=== PATIENT | female | born 1940 | race African-American/Black ===

== ENCOUNTER 2024-01-07 22:16 | Emergency (ER) | payer OTHER ==
[~2024-01-07] VITALS: Ht 165.1 cm; Wt 62.0 kg
[2024-01-08] MEDS: HYDROcodone-ACET 5/325MG TAB PO ONE (00:04)
[2024-01-08] MEDS ORDERED: HYDR-4902 PO (00:57)
[2024-01-08 01:23] VITALS: BP 112/58; PULSE 62; RESP 18; TEMP 98; O2SAT 99
== END 2024-01-08 01:31 | disposition home or self-care (01) ==
LOC: ER 22:16
DX: S80.02XA Contusion of left knee, initial encounter (principal); M17.12 Unilateral primary osteoarthritis, left knee; W17.89XA Other fall from one level to another, initial encounter; Y93.89 Activity, other specified; Y92.009 Unspecified place in unspecified non-institutional (private) residence as the place of occurrence of the external cause; Y99.8 Other external cause status
CPT/HCPCS: 73562

== ENCOUNTER 2024-01-12 01:31 | Inpatient (IN) | payer OTHER ==
[2024-01-12] VITALS (9 sets, daily range): BP systolic 117–138; BP diastolic 49–64; PULSE 51–99; RESP 16–20; TEMP 97.3–98.5; O2SAT 94–100
[~2024-01-12] VITALS: Ht 167.6 cm; Wt 62.0 kg
[~2024-01-12 01:31] MED LIST: HYDR-4902 PO
[2024-01-12 01:52] LABS: Basophils # (auto) 0.1 10 ^3/uL (0-0.2); Eosinophils # (auto) 0.2 10 ^3/uL (0-0.8); Hemoglobin 11.9 g/dL (12.2-16.2)
[2024-01-12 01:53] LABS: Basophils % (auto) 0.7 % (0.0-2.0); Eosinophils % (auto) 2.3 % (0.0-7.0); Hematocrit 35.5 % (36.0-46.0); Lymphocytes # (auto) 2.2 10 ^3/uL (0.4-5.4); Lymphocytes % (auto) 22.7 % (10.0-50.0); Mean Corpuscular Hemoglobin 27.8 pg (28.0-32.0); Mean Corpuscular Hgb Conc. 33.5 g/dL (32.0-36.0); Mean Corpuscular Volume 82.9 fL (80.0-100.0); Monocytes # (auto) 0.9 10 ^3/uL (0-1.3); Monocytes % (auto) 9.7 % (0.0-12.0); Neutrophils # (auto) 6.2 10 ^3/uL (1.6-8.6); Neutrophils % (auto) 64.6 % (37.0-80.0); Red Blood Cells 4.28 10^6/uL (4.0-5.20); Red Cell Distribution Width 16.8 % (11.8-14.3); White Blood Cell 9.6 10^3/uL (4.4-10.8)
[2024-01-12 02:10] LABS: Alanine Aminotransferase 13 U/L (7-40); Alkaline Phosphatase 75 U/L (46-116); Anion Gap 5 (5-15); Aspartate Aminotransferase 19 U/L (13-40); Bilirubin, Total 0.4 mg/dL (0.2-1.0); Calcium 9.9 mg/dL (8.7-10.4); Carbon Dioxide 28 mmol/L (20-30); Chloride 108 mmol/L (98-107); Glucose 110 mg/dL (74-106); Potassium 3.6 mmol/L (3.5-5.1); Sodium 141 mmol/L (136-145); Total Protein 7.2 g/dL (5.7-8.2)
[2024-01-12 02:33] LABS: BUN/Creatinine Ratio 7.2 (10.0-20.0); Blood Urea Nitrogen < 5 mg/dL (9-23)
[2024-01-12] MEDS: IOHEXOL 350 MG/ML 100ML IJ ONE (03:31)
[2024-01-12] MEDS: ASPirin 81 mg TAB PO ONE (04:26)
[2024-01-12] MEDS: HYDROcodone-ACET 10/325MG TAB PO ONE (04:36)
[2024-01-12] MEDS ORDERED: MORPHINE SULFATE INJ 2 MG/ml SYRG IV PRN (04:45)
[2024-01-12] MEDS ORDERED: ONDANSETRON HCL 4 MG/2 ML VIAL IV PRN (04:45)
[2024-01-12] MEDS ORDERED: NITROGLYCERIN 0.4 MG SL TAB SL PRN (04:45)
[2024-01-12] MEDS: SODIUM CHLOR 0.9% PF (SALINE LOCK) 10ML VIAL/SYR IV SCH (06:46)
[2024-01-12] MEDS ORDERED: LEVO125T7 PO (09:17)
[2024-01-12] MEDS ORDERED: CARV12.544 PO (09:18)
[2024-01-12] MEDS ORDERED: AMLO1TAB22 PO (09:18)
[2024-01-12] MEDS ORDERED: ALPR0.5T7 PO (09:20)
[2024-01-12] MEDS ORDERED: TIMO0.5S32 OP (09:22)
[2024-01-12] MEDS ORDERED: LATA0.008 EACHEYE (09:23)
[2024-01-12] MEDS ORDERED: APIX5TAB PO (09:23)
[2024-01-12] MEDS: ASPirin 81 mg TAB PO SCH (12:00)
[2024-01-12 13:35] LABS: Magnesium 1.9 mg/dL (1.6-2.6)
[2024-01-12 13:36] LABS: CRP High Sensitivity 0.04 mg/dL (<1.0)
[2024-01-12 13:41] LABS: INR 1.12 (0.9-1.15); Partial Thromboplastin Time 32.2 SEC (24.5-34.5); Prothrombin Time 11.8 sec (9.3-11.8)
[2024-01-12 14:12] LABS: Erythrocyte Sedimentation Rate 13 mm/hr (0-20)
[2024-01-12 15:51] LABS: Folate (Folic Acid) 11.93 ng/mL (>5.38)
[2024-01-12] MEDS: amLODIPine BESYLATE 5 MG TAB PO SCH (16:47)
[2024-01-12] MEDS: HYDROcodone-ACET 5/325MG TAB PO PRN (18:45)
[2024-01-12] MEDS: ACETAMINOPHEN 325 MG TAB PO PRN (21:17)
[2024-01-12] MEDS: ATORVASTATIN 20 MG TAB PO SCH (21:18)
[2024-01-12] MEDS: APIXABAN 5 MG TAB PO SCH (21:18)
[2024-01-13] VITALS (8 sets, daily range): BP systolic 114–152; BP diastolic 49–66; PULSE 54–96; RESP 16–18; TEMP 97.6–98.4; O2SAT 95–100
[2024-01-13] MEDS: LEVOTHYROXINE SODIUM 25 MCG TAB PO SCH (06:13)
[2024-01-13] MEDS: LEVOTHYROXINE SODIUM 100 MCG TAB PO SCH (06:14)
[2024-01-13 06:39] LABS: Urine Bacteria None Seen /hpf (None Seen)
[2024-01-13 06:43] LABS: Alanine Aminotransferase 11 U/L (7-40); Albumin 3.3 g/dL (3.2-4.8); Alkaline Phosphatase 62 U/L (46-116); Anion Gap 5 (5-15); Aspartate Aminotransferase 19 U/L (13-40); BUN/Creatinine Ratio 8.8 (10.0-20.0); Bilirubin, Total 0.4 mg/dL (0.2-1.0); Blood Urea Nitrogen 7 mg/dL (9-23); Calcium 9.1 mg/dL (8.7-10.4); Carbon Dioxide 28 mmol/L (20-30); Chloride 108 mmol/L (98-107); Glucose 86 mg/dL (74-106); Potassium 3.6 mmol/L (3.5-5.1); Sodium 141 mmol/L (136-145)
[2024-01-13 06:45] LABS: Basophils # (auto) 0.1 10 ^3/uL (0-0.2); Basophils % (auto) 0.8 % (0.0-2.0); Eosinophils # (auto) 0.2 10 ^3/uL (0-0.8); Eosinophils % (auto) 2.2 % (0.0-7.0); Hematocrit 32.2 % (36.0-46.0); Hemoglobin 10.7 g/dL (12.2-16.2); Lymphocytes # (auto) 2.8 10 ^3/uL (0.4-5.4); Lymphocytes % (auto) 33.1 % (10.0-50.0); Mean Corpuscular Hemoglobin 27.6 pg (28.0-32.0); Mean Corpuscular Hgb Conc. 33.3 g/dL (32.0-36.0); Mean Corpuscular Volume 83.1 fL (80.0-100.0); Monocytes % (auto) 11.5 % (0.0-12.0); Neutrophils # (auto) 4.4 10 ^3/uL (1.6-8.6); Neutrophils % (auto) 52.4 % (37.0-80.0); Nucleated Red Blood Cells % 0.1 %; Red Blood Cells 3.87 10^6/uL (4.0-5.20); White Blood Cell 8.3 10^3/uL (4.4-10.8)
[2024-01-13 06:47] LABS: Urine Blood Negative /uL (Negative); Urine Clarity Clear (Clear); Urine Color Light-Yellow (Yellow); Urine Protein, UAD Negative (Negative); Urine Specific Gravity 1.024 (1.001-1.035); Urine Urobilinogen Normal (Negative); Urine WBC <1 /hpf (0 - 5)
[2024-01-13] MEDS ORDERED: PATIENTS OWN MEDICATION (Levothyroxine Sodium 125 MCG) PO SCH (07:00)
[2024-01-13 09:06] LABS: RPR Non Reactive (Non Reactive)
[2024-01-13] MEDS: APIXABAN 5 MG TAB PO SCH (10:00)
[2024-01-13] MEDS: amLODIPine BESYLATE 5 MG TAB PO SCH (10:06)
[2024-01-13] MEDS: ALPRAZolam 0.5 MG TAB PO PRN (21:49)
[2024-01-13] MEDS: ATORVASTATIN 20 MG TAB PO SCH (21:49)
[2024-01-13] MEDS ORDERED: ATORVASTATIN 20 MG TAB PO SCH (22:00)
[2024-01-14] VITALS (8 sets, daily range): BP systolic 105–147; BP diastolic 52–80; PULSE 58–87; RESP 16–20; TEMP 97.7–98.7; O2SAT 93–100
[2024-01-14 06:16] LABS: Basophils # (auto) 0.1 10 ^3/uL (0-0.2); Basophils % (auto) 0.8 % (0.0-2.0); Eosinophils # (auto) 0.2 10 ^3/uL (0-0.8)
[2024-01-14 06:20] LABS: Hematocrit 32.1 % (36.0-46.0); Hemoglobin 10.9 g/dL (12.2-16.2); Lymphocytes # (auto) 2.7 10 ^3/uL (0.4-5.4); Lymphocytes % (auto) 30.4 % (10.0-50.0); Mean Corpuscular Hgb Conc. 34.1 g/dL (32.0-36.0); Mean Corpuscular Volume 82.2 fL (80.0-100.0); Monocytes # (auto) 0.9 10 ^3/uL (0-1.3); Monocytes % (auto) 10.3 % (0.0-12.0); Neutrophils # (auto) 4.9 10 ^3/uL (1.6-8.6); Neutrophils % (auto) 56.5 % (37.0-80.0); Red Blood Cells 3.91 10^6/uL (4.0-5.20); White Blood Cell 8.7 10^3/uL (4.4-10.8)
[2024-01-14 06:34] LABS: Anion Gap 4 (5-15); Carbon Dioxide 29 mmol/L (20-30); Chloride 108 mmol/L (98-107); Potassium 3.5 mmol/L (3.5-5.1); Sodium 141 mmol/L (136-145)
[2024-01-14 06:35] LABS: Calcium 9.2 mg/dL (8.7-10.4)
[2024-01-14 06:40] LABS: BUN/Creatinine Ratio 11.5 (10.0-20.0); Blood Urea Nitrogen 9 mg/dL (9-23); Glucose 91 mg/dL (74-106)
[2024-01-14] MEDS: ASPirin 81 mg TAB PO SCH (09:02)
[2024-01-14] MEDS: DOCUSATE SOD 100 MG CAP PO PRN (21:56)
[2024-01-15 01:00] VITALS: BP 139/87; PULSE 88; RESP 18; TEMP 97.9; O2SAT 100
[2024-01-15 05:00] VITALS: BP 141/72; PULSE 65; RESP 18; TEMP 97.7; O2SAT 95
[2024-01-15 07:07] LABS: Basophils # (auto) 0.1 10 ^3/uL (0-0.2); Eosinophils # (auto) 0.3 10 ^3/uL (0-0.8); Hematocrit 33.6 % (36.0-46.0); Hemoglobin 11.3 g/dL (12.2-16.2); Lymphocytes # (auto) 3.4 10 ^3/uL (0.4-5.4)
[2024-01-15 07:09] LABS: Basophils % (auto) 1.1 % (0.0-2.0); Eosinophils % (auto) 2.6 % (0.0-7.0); Lymphocytes % (auto) 35.3 % (10.0-50.0); Mean Corpuscular Hemoglobin 28.3 pg (28.0-32.0); Mean Corpuscular Hgb Conc. 33.7 g/dL (32.0-36.0); Mean Corpuscular Volume 83.8 fL (80.0-100.0); Monocytes # (auto) 0.9 10 ^3/uL (0-1.3); Monocytes % (auto) 9.4 % (0.0-12.0); Neutrophils % (auto) 51.6 % (37.0-80.0); Nucleated Red Blood Cells % 0.2 %; White Blood Cell 9.7 10^3/uL (4.4-10.8)
[2024-01-15 07:34] LABS: Alanine Aminotransferase 14 U/L (7-40); Albumin 3.4 g/dL (3.2-4.8); Alkaline Phosphatase 60 U/L (46-116); Calcium 9.3 mg/dL (8.7-10.4); Carbon Dioxide 22 mmol/L (20-30); Chloride 110 mmol/L (98-107); Glucose 87 mg/dL (74-106); Potassium 3.5 mmol/L (3.5-5.1)
[2024-01-15 07:35] LABS: Anion Gap 8 (5-15); Aspartate Aminotransferase 23 U/L (13-40); BUN/Creatinine Ratio 7.9 (10.0-20.0); Bilirubin, Total 0.4 mg/dL (0.2-1.0); Blood Urea Nitrogen 6 mg/dL (9-23); Sodium 140 mmol/L (136-145); Total Protein 6.2 g/dL (5.7-8.2)
[2024-01-15 08:00] VITALS: PULSE 59
[2024-01-15 09:07] VITALS: BP 138/67; PULSE 62; RESP 17; TEMP 98.9; O2SAT 95
[2024-01-15 12:48] VITALS: BP 140/71; PULSE 62; RESP 18; TEMP 98.4; O2SAT 99
[2024-01-15] MEDS ORDERED: ATOR20TA50 PO (15:03)
[2024-01-15] MEDS ORDERED: ASPI-325 PO (15:03)
[2024-01-15] MEDS ORDERED: AML5T PO (15:03)
[2024-01-15 17:06] VITALS: BP 133/73; PULSE 61; RESP 17; TEMP 98.2; O2SAT 98
== END 2024-01-15 18:44 | disposition home or self-care (01) | DRG 206 ==
LOC: ER 01:31 → TELE 04:43 → TELE-WESTW 06:05
PROVIDERS: ADMIT Internal Medicine; ATTEND Neuromusculoskeletal Medicine & OMM
DX: M94.0 Chondrocostal junction syndrome [Tietze] (principal); D75.839 Thrombocytosis, unspecified; I10 Essential (primary) hypertension; J45.909 Unspecified asthma, uncomplicated; D64.9 Anemia, unspecified; E78.2 Mixed hyperlipidemia; F32.A Depression, unspecified
CPT/HCPCS: 36415; 70450; 70551; 71045; 71275; 80048; 80053; 80061; 81001; 82140; 82270; 82306; 82607; 82728; 82746; 83036; 83540; 83550; 83735; 83880; 84443; 84484; 85025; 85045; 85610; 85652; 85730; 86141; 86592; 87081; 87086; 93005; 93306; 97163; G0378

== ENCOUNTER 2024-10-20 05:44 | Emergency (ER) | payer OTHER ==
[~2024-10-20] VITALS: Ht 170.2 cm; Wt 86.2 kg
[~2024-10-20 05:44] MED LIST changes: +ALPR0.5T7 PO; +AML5T PO; +ASPI-325 PO; +ATOR20TA50 PO; +CARV12.544 PO; +LATA0.008 EACHEYE; +LEVO125T7 PO; +TIMO0.5S32 OP
--- NOTE | 2024-10-20 06:28 | ECG ---
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
--- NOTE | 2024-10-20 06:41 | ED.PDOC ---
History of Present Illness HPI Comments 83-year-old female brought in by EMS presents with a chief complaint of body pain x 4 hours. Patient is A/Ox2 with Dementia at baseline and is a poor historian. Per EMS, son of patient gave Tramadol at 0100 with no relief of symptoms. Patients family withheld patients [place] as they were afraid of overdosing patient. Patient has PMHx of CVA with left sided deficits. Chief Complaint: Body Pain Time Seen by MD: 06:22 Reviewed Notes: Medications, Allergies Allergies: Coded Allergies: NO KNOWN ALLERGIES (Unverified , 01/07/24) Home Meds Active Scripts Atorvastatin Calcium (ATORVASTATIN CALCIUM) 20 Mg Tab, 40 MG PO HS for 30 Days, #60 TAB Prov:MADDISON PEREZ RESIDENT 01/15/24 Aspirin (Aspirin Low Dose) 81 Mg Tab, 81 MG PO DAILY for 30 Days, #30 TAB Prov:MADDISON PEREZ RESIDENT 01/15/24 Amlodipine Besylate (NORVASC TABLET) 5 Mg Tb, 10 MG PO DAILY for 30 Days, #60 TAB Prov:MADDISON PEREZ RESIDENT 01/15/24 Hydrocodone-Acetaminophen (Hydrocodone Bitartrate/AC 5-325 mg) 1 Tab Tab, 1 TAB PO Q8HP PRN, #20 TAB Prov:AGATA VIERA PAC 01/08/24 Reported Medications Latanoprost (LATANOPROST) 0.005 % Alyse, 1 DROP EACHEYE QPM, #7.5 ML 3 Refills 01/12/24 Timolol Maleate (Ophth) (Timolol Maleate) 0.5 % Alyse, 1.25 % OP BID, ML 01/12/24 Alprazolam (Alprazolam) 0.5 Mg Tab, 1 TAB PO PRN, #30 TAB 01/12/24 Carvedilol (Carvedilol) 12.5 Mg Tab, 12.5 MG PO BID for 30 Days, MG 01/12/24 Levothyroxine Sodium (Levothyroxine Sodium) 125 Mcg Tab, 125 MCG PO QAM for 30 Days, MCG 01/12/24 Information Source: Emergency Med Personnel Mode of Arrival: EMS Severity: Moderate Timing: Hours Duration: Since onset Prehospital treatment: Pain Meds (Tramadol ) Medication Refill: For: Pain Past Medical History PAST MEDICAL HISTORY: Asthma, Dementia, HTN Surgical History: Denies all surgeries WILTON WEAVER History: No Pertinent WILTON WEAVER History Family History Family History: Reviewed,noncontributory to illness, No family hx of Cancer, No family hx of DM, No family hx of Heart leonela, No family hx of HTN, No family hx ofKidney leonela, No family hx of Liver leonela, No family hx of Lung leonela, No family hx of Stroke Social History Smoker: Non-Smoker Alcohol: Denies ETOH Use Drugs: Denies Drug Use Lives In: Home Constitutional: denies: chills, diaphoresis, fatigue, fever, malaise, sweats, weakness, others EENTM: denies: blurred vision, double vision, ear bleeding, ear discharge, ear drainage, ear pain, ear ringing, eye pain, eye redness, hearing loss, mouth pain, mouth swelling, nasal discharge, nose bleeding, nose congestion, nose pain, photophobia, tearing, throat pain, throat swelling, voice changes, others Respiratory: denies: cough, hemoptysis, orthopnea, SOB at rest, shortness of breath, SOB with excertion, stridor, wheezing, others Cardiovascular: denies: chest pain, dizzy spells, diaphoresis, Dyspnea on exertion, edema, irregular heart beat, left arm pain, lightheadedness, palpitations, PND, syncope, others Gastrointestinal: denies: abdomen distended, abdominal pain, blood streaked bowels, constipated, diarrhea, dysphagia, difficulty swallowing, hematemesis, melena, nausea, poor appetite, poor fluid intake, rectal bleeding, rectal pain, vomiting, others Genitourinary: denies: abnormal vagina bleeding, burning, dyspareunia, dysuria, flank pain, frequency, hematuria, incontinence, pain, , vagina discharge, urgency, others Neurological: denies: dizziness, fainting, headache, left sided numbness, left sided weakness, numbness, paresthesia, pre-existing deficit, right sided numbness, right sided weakness, seizure, speech problems, tingling, tremors, weakness, others Musculoskeletal: reports: muscle pain (BODY PAIN); denies: back pain, gout, joint pain, joint swelling, muscle stiffness, neck pain, others Integumetry: denies: bruises, change in color, change in hair/nails, dryness, laceration, lesions, lumps, rash, wounds, others Allergic/Immunocompromised: denies: Difficulty Healing, Frequent Infections, Hives, Itching, others Hematologic/Lymphatic: denies: anemia, blood clots, easy bleeding, easy bruising, swollen glands, others Endocrine: denies: excessive hunger, excessive sweating, excessive thirst, excessive urination, flushing, intolerance to cold, intolerance to heat, unexplained weight gain, unexplained weight loss, others Psychiatric: denies: anxiety, bipolar disorder, depression, hopeless, panic disorder, schizophrenia, sleepless, suicidal, others All Other Systems: Reviewed and Negative Physical Exam General Appearance: Mild Distress, Normal HEENT: Normal ENT Inspection, Pharynx Normal, TMs Normal Neck: Full Range of Motion, Non-Tender, Normal, Normal Inspection Respiratory: Chest Non-Tender, Lungs Clear, No Accessory Muscle Use, No Respiratory Distress, Normal Breath Sounds Cardiovascular: No Edema, No JVD, No Murmur, No Gallop, Normal Peripheral Pulses, Regular Rate/Rhythm Breast Exam: Deferred Gastrointestinal: No Organomegaly, Non Tender, No Pulsatile Mass, Normal Bowel Sounds, Soft Genitalia: Deferred Pelvic: Deferred Rectal: Deferred Extremities: No calf tenderness, Normal capillary refill, Normal inspection, Normal range of motion, Non-tender, No pedal edema Musculoskeletal : Apperance: Normal Neurologic: Other (BASELINE AT A&Ox2; AWAKE, ASKING FOR WATER) Cerebellar Function: Normal Reflexes: Normal Skin: Dry, Normal Color, Warm Lymphatic: No Adenopathy Was a procedure done? Was a procedure done?: No Differential Dx Considerations may include: BODY PAIN, MYALGIA, RECTAL PAIN X-Ray, Labs, Meds, VS Vital Signs Date Time Temp Pulse Resp B/P (MAP) Pulse Ox O2 Delivery O2 Flow Rate FiO2 10/20/24 08:42 97.8 70 15 193/99 (130) 97 97.8 10/20/24 07:50 98.2 70 19 151/84 (106) 97 98.2 10/20/24 07:46 18 Room Air* 0 21 10/20/24 06:02 65 10/20/24 05:49 98.3 69 16 140/94 (109) 98 83-year-old female presents here with whole-body aches and also rectal discomfort. She feels that something is stuck inside her rectum. Although there is no history of any foreign object placed in the rectum. KUB has been done with no evidence of foreign body. It does demonstrate moderate stool in the colon which I suspect is the sensation she is having. I have given her Tylenol 650 mg p.o. in the ER. On my examination she is well-appearing. No barbara dence of acute pathology. I have discharged her home with magnification for constipation also. Advised him to follow up with the PCP in 2-3 days and return to the ER if symptoms worsen or persist. Time of 1ST Reevaluation: 06:52 Reevaluation 1ST: Unchanged Patient Education/Counseling: Diagnosis, Treatment, Prognosis Family Education/Counseling: Diagnosis, Treatment, Prognosis Departure 1 Departure Time of Disposition: 08:00 Impression: Primary Impression: Rectal pain Additional Impressions: Generalized body aches Constipation Qualified Codes: K59.00 - Constipation, unspecified Disposition: 01 HOME / SELF CARE / HOMELESS Condition: Fair Additional Instructions: Follow up with the primary care physician in 2-3 days return to the ER if symptoms worsen or persist. There is evidence of moderate constipation on your x-ray today. Please buy [id number] MiraLax and drink 1 cap full of the powder with 8 oz of water daily to help with constipation. e-Prescriptions Polyethylene Glycol 3350 (Miralax) 17 Gm Pow 17 GM PO QDAILY, #1 BOTTLE MIXED 17 G OR 1 CAPFUL WITH 8 OZ OF WATER EVERY DAY TO HELP WITH CONSTIPATION Prov: JERRELL DIAZ MD 10/20/24 Discharged With: Self Critical Care Note Critical Care Time?: No Stability Stability form required: No Heart Score Heart Score: Heart Score Response (Comments) Value History N/A 0 EKG N/A 0 Age N/A 0 Risk Factors N/A 0 Troponin N/A 0 Total 0 I personally scribed for JERRELL DIAZ MD ([email or web address]) on 10/20/24 at 06:40. Electronically submitted by Jose Elias Donnelly ([email or web address]). I personally scribed for JERRELL DIAZ MD ([email or web address]) on 10/20/24 at 09:27. Electronically submitted by Jose Elias Donnelly ([email or web address]). JERRELL DIAZ MD Oct 20, 2024 06:40
[2024-10-20 07:46] VITALS: RESP 18
--- NOTE | 2024-10-20 09:08 | DVH ---
CLINICAL HISTORY: Abdominal pain. Constipation, foreign body. TECHNIQUE: AP portable abdominal radiographs were obtained. COMPARISON: None FINDINGS: Patient was unable to lay supine for the examination, so the images are obliqued. Nonspeci fic bowel gas pattern with nondilated gas-filled small bowel loops and gas and moderate stool in the colon. No significant calcifications visualized. There is moderate elevation of the right hemidiaphra gm. No radiopaque foreign body visualized IMPRESSION: 1. Nonspecific nonobstructive bowel gas pattern with moderate stool in the colon. 2. No radiopaque foreign body visualized.
[2024-10-20] MEDS ORDERED: POLY335015 PO (09:38)
[2024-10-20] MEDS: ACETAMINOPHEN 325 MG TAB PO ONE (10:09)
[2024-10-20 11:00] VITALS: BP 155/88; PULSE 69; RESP 13; TEMP 98; O2SAT 99
== END 2024-10-20 11:39 | disposition home or self-care (01) ==
LOC: EDBD 05:44 → ER 05:44 → EDUNIT# 05:44 → ER 11:29
DX: K62.89 Other specified diseases of anus and rectum (principal); M79.18 Myalgia, other site; K59.00 Constipation, unspecified; F03.90 Unspecified dementia, unspecified severity, without behavioral disturbance, psychotic disturbance, mood disturbance, and anxiety; I10 Essential (primary) hypertension; J45.909 Unspecified asthma, uncomplicated; Z79.82 Long term (current) use of aspirin; Z79.890 Hormone replacement therapy; Z79.899 Other long term (current) drug therapy
CPT/HCPCS: 74018; 93005

== ENCOUNTER 2024-10-24 09:35 | Inpatient (IN) | payer OTHER ==
[~2024-10-24] VITALS: Ht 157.5 cm; Wt 56.6 kg
[~2024-10-24 09:35] MED LIST changes: +POLY335015 PO
--- NOTE | 2024-10-24 10:03 | ED.PDOC ---
SOB-HPI HPI Comments 83 y/o F, with PMHX of thyroid disease, dementia, CVA, COPD, HTN, Asthma, and HLD presents to the ED for CC of shortness of breath. Per patient's daughter, patient has been complaining of rectal pain with associated new onset symptoms of shortness of breath xdays. Patient's daughter states, she takes care of patient as home and examined patients rectum and appeared normal. Patient states, that she has been experiencing shortness of breath for awhile however, symptoms worsened in route to ED. No other symptoms obtainable at this time due to patient's condition. Chief Complaint: Shortness of Breath Time Seen by MD: 10:00 Reviewed notes: Nurses Notes, Medications, Allergies Information Source: Patient, Relative (Child) Mode of Arrival: Wheelchair Severity: Moderate Timing: Days Duration: Since onset Context: At Rest PE Risk Factors: None History of: None Prehospital treatment: None Modifying Factors: Nothing Associated Signs and Symptoms: None Past Medical History PAST MEDICAL HISTORY: Asthma, COPD, CVA, Dementia, High Lipids, HTN, Thyroid Surgical History: Denies all surgeries HIGH MAN History: No Pertinent HIGH MAN History Family History Family History: Reviewed,noncontributory to illness, No family hx of Cancer, No family hx of DM, No family hx of Heart leonela, No family hx of HTN, No family hx ofKidney leonela, No family hx of Liver leonela, No family hx of Lung leonela, No family hx of Stroke Social History Smoker: Non-Smoker Alcohol: Denies ETOH Use Drugs: Denies Drug Use Lives In: Home Constitutional: denies: chills, diaphoresis, fatigue, fever, malaise, sweats, weakness, others EENTM: denies: blurred vision, double vision, ear bleeding, ear discharge, ear drainage, ear pain, ear ringing, eye pain, eye redness, hearing loss, mouth pain, mouth swelling, nasal discharge, nose bleeding, nose congestion, nose pain, photophobia, tearing, throat pain, throat swelling, voice changes, others Respiratory: reports: shortness of breath; denies: cough, hemoptysis, orthopnea, SOB at rest, SOB with excertion, stridor, wheezing, others Cardiovascular: denies: chest pain, dizzy spells, diaphoresis, Dyspnea on exertion, edema, irregular heart beat, left arm pain, lightheadedness, palpitations, PND, syncope, others Gastrointestinal: denies: abdomen distended, abdominal pain, blood streaked bowels, constipated, diarrhea, dysphagia, difficulty swallowing, hematemesis, melena, nausea, poor appetite, poor fluid intake, rectal bleeding, rectal pain, vomiting, others Genitourinary: denies: abnormal vagina bleeding, burning, dyspareunia, dysuria, flank pain, frequency, hematuria, incontinence, pain, , vagina d ischarge, urgency, others Neurological: denies: dizziness, fainting, headache, left sided numbness, left sided weakness, numbness, paresthesia, pre-existing deficit, right sided numbness, right sided weakness, seizure, speech problems, tingling, tremors, weakness, others Musculoskeletal: denies: back pain, gout, joint pain, joint swelling, muscle pain, muscle stiffness, neck pain, others Integumetry: denies: bruises, change in color, change in hair/nails, dryness, laceration, lesions, lumps, rash, wounds, others Allergic/Immunocompromised: denies: Difficulty Healing, Frequent Infections, Hives, Itching, others Hematologic/Lymphatic: denies: anemia, blood clots, easy bleeding, easy bruising, swollen glands, others Endocrine: denies: excessive hunger, excessive sweating, excessive thirst, excessive urination, flushing, intolerance to cold, intolerance to heat, unexplained weight gain, unexplained weight loss, others Psychiatric: denies: anxiety, bipolar disorder, depression, hopeless, panic disorder, schizophrenia, sleepless, suicidal, others All Other Systems: Reviewed and Negative Physical Exam General Appearance: Moderate Distress HEENT: Normal ENT Inspection, Pharynx Normal, TMs Normal Neck: Full Range of Motion, Non-Tender, Normal, Normal Inspection Respiratory: Other (Coarse breath sounds) Cardiovascular: No Edema, No JVD, No Murmur, No Gallop, Normal Peripheral Pulses, Regular Rate/Rhythm Breast Exam: Deferred Gastrointestinal: No Organomegaly, Non Tender, No Pulsatile Mass, Normal Bowel Sounds, Soft Genitalia: Deferred Pelvic: Deferred Rectal: Deferred Extremities: Pedal edema Musculoskeletal : Apperance: Normal Neurologic: Disoriented Cerebellar Function: NOT DONE Reflexes: NOT DONE Skin: Dry, Normal Color, Warm Peripheral Pulses: 3+ Radial (R), 3+ Radial (L) Lymphatic: No Adenopathy Was a procedure done? Was a procedure done?: No Differential Dx Differential Diagnosis: Anxiety, Asthma, Bronchitis, CHF, COPD, Pharyngitis, URI, Other (UTI) X-Ray, Labs, Meds, VS Vital Signs Date Time Temp Pulse Resp B/P (MAP) Pulse Ox O2 Delivery O2 Flow Rate FiO2 10/24/24 10:46 190/82 10/24/24 10:42 53 16 96 Room Air* 0 21 10/24/24 10:40 53 18 96 Room Air 10/24/24 10:40 98.1 53 18 190/82 (118) 96 98.1 10/24/24 10:01 18 97 Room Air* 0 21 10/24/24 09:52 97.8 69 18 182/113 (136) 97 Lab Test 10/24/24 10:08 10/24/24 10:06 Range/Units White Blood Count 8.6 4.4-10.8 10^3/uL Red Blood Count 4.58 4.0-5.20 10^6/uL Hemoglobin 13.1 12.2-16.2 g/dL Hematocrit 39.6 36.0-46.0 % Mean Corpuscular Volume 86.5 80.0-100.0 fL Mean Corpuscular Hemoglobin 28.6 28.0-32.0 pg Mean Corpuscular Hemoglobin Concent 33.1 32.0-36.0 g/dL Red Cell Distribution Width 16.6 H 11.8-14.3 % Platelet Count 605 H 140-450 10^3/uL Mean Platelet Volume 6.9 6.9-10.8 fL Neutrophils (%) (Auto) 65.5 37.0-80.0 % Lymphocytes (%) (Auto) 23.4 10.0-50.0 % Monocytes (%) (Auto) 7.1 0.0-12.0 % Eosinophils (%) (Auto) 2.7 0.0-7.0 % Basophils (%) (Auto) 1.3 0.0-2.0 % Neutrophils # (Auto) 5.7 1.6-8.6 10 ^3/uL Lymphocytes # (Auto) 2.0 0.4-5.4 10 ^3/uL Monocytes # (Auto) 0.6 0-1.3 10 ^3/uL Eosinophils # (Auto) 0.2 0-0.8 10 ^3/uL Basophils # (Auto) 0.1 0-0.2 10 ^3/uL Nucleated Red Blood Cells 0.1 % Sodium Level 142 136-145 mmol/L Potassium Level 3.6 3.5-5.1 mmol/L Chloride Level 107 98-107 mmol/L Carbon Dioxide Level 31 20-31 mmol/L Anion Gap 4 L 5-15 Blood Urea Nitrogen 9 9-23 mg/dL Creatinine 1.13 H 0.550-1.02 mg/dL Glomerular Filtration Rate Calc 49 >90 mL/min BUN/Creatinine Ratio 8.0 L 10.0-20.0 Serum Glucose 95 74-106 mg/dL Calcium Level 9.7 8.7-10.4 mg/dL Troponin I High Sensitivity 6 </=34 ng/L Urine Color Light-yellow Yellow Urine Clarity Clear Clear Urine pH 7.5 5.0-9.0 Urine Specific [place] 1.012 1.001-1.035 Urine Protein Negative Negative Urine Ketones Negative Negative Urine Blood Negative Negative /uL Urine Nitrite Negative Negative Urine Bilirubin Negative Negative Urine Urobilinogen Normal Negative mg/dL Urine Leukocyte Esterase Negative Negative /uL Urine RBC 1 0 - 4 /hpf Urine Microscopic WBC 1 0-5 /HPF Urine Squamous Epithelial Cells Few <5 /hpf Urine Bacteria None seen None Seen /hpf Urine Glucose Normal Normal mg/dL Current Medications Medications (Trade) Dose Ordered Sig/Osvaldo Route Start Time Stop Time Status Last Admin Hydralazine HCl (Apresoline Injection) 5 mg ONCE ONCE IV 10/24/24 10:15 10/24/24 10:16 DC 10/24/24 10:46 [place] [id number] Ph: [phone] DIAGNOSTIC IMAGING Diagnostic Imaging Report : [id number] Signed PATIENT: STORM HERNÁNDEZ ACCT: [id number] UNIT: [id number] : 1940 LOC: ER ROOM / BED: / AGE / SEX: 83 / F ADM STATUS: REG ER SERVICE [id number] ORDERING PHYSICIAN: TARAN COSTA MD PROCEDURE(s): CXRP - CHEST PORTABLE REASON: sob ORDER NUMBER(s): [id number], ACCESSION NUMBER(s): [id number] EXAM: XY CHEST PORTABLE HISTORY: sob COMPARISON: XY CHEST PORTABLE on DOS: 01/12/24 TECHNIQUE: Portable AP view of the chest was performed. FINDINGS: There is a new hazy infiltrate in the right lung base. No other infiltrates, thorax, or pulmonary edema. There is mild elevation of the right hemidiaphragm. The heart is mildly enlarged. The aortic arch is calcific. IMPRESSION: 1. New right basilar pneumonia. 2. Cardiomegaly and atherosclerotic vascular disease. ATED BY: LANA OCONNELL MD DICTATED DATE/TIME: 10/24/24 1025 SIGNED BY: LANA OCONNELL MD SIGNED DATE/TIME: 10/24/24 1025 CC: Patient disoriented. Pressure elevated. History of dementia Family at bedside. She is in the wheelchair her most of the time. Does not ambulate. Shortness a breath. EKG reviewed does not show any acute changes. Was given hydralazine. Explained the family. Continue cardiac monitoring. Chest x-ray reviewed does show pneumonia. Was given Levaquin. Time of 1ST Reevaluation: 10:30 Reevaluation 1ST: Unchanged Patient Education/Counseling: Diagnosis, Treatment Family Education/Counseling: Diagnosis, Treatment Departure 1 Departure Time of Disposition: 10:11 Impression: Primary Impression: Metabolic encephalopathy Additional Impressions: Hypertensive emergency Pneumonia Qualified Codes: J18.9 - Pneumonia, unspecified organism Disposition: ADMITTED INPATIENT Admit to: Med Surg Condition: Guarded Critical Care Note Critical Care Time?: No Stability Stability form required: No Heart Score Heart Score: Heart Score Response (Comments) Value History Highly Suspicious 2 EKG Normal 0 Age >65 2 Risk Factors 1 or 2 risk factors 1 Troponin Normal limit 0 Total 5 I personally scribed for TRAAN COSTA MD ([email or web address]) on 10/24/24 at 10:03. Electronically submitted by Maggi Connelly ([email or web address]). I personally scribed for TARAN COSTA MD ([email or web address]) on 10/24/24 at 10:50. Electronically submitted by Maggi Connelly ([email or web address]). TARAN COSTA MD Oct 24, 2024 10:03
[2024-10-24 10:16] LABS: Basophils # (auto) 0.1 10 ^3/uL (0-0.2); Eosinophils # (auto) 0.2 10 ^3/uL (0-0.8); Eosinophils % (auto) 2.7 % (0.0-7.0); Hemoglobin 13.1 g/dL (12.2-16.2); Monocytes # (auto) 0.6 10 ^3/uL (0-1.3); Nucleated Red Blood Cells % 0.1 %; White Blood Cell 8.6 10^3/uL (4.4-10.8)
[2024-10-24 10:18] LABS: Basophils % (auto) 1.3 % (0.0-2.0); Hematocrit 39.6 % (36.0-46.0); Lymphocytes % (auto) 23.4 % (10.0-50.0); Mean Corpuscular Hemoglobin 28.6 pg (28.0-32.0); Mean Corpuscular Hgb Conc. 33.1 g/dL (32.0-36.0); Mean Corpuscular Volume 86.5 fL (80.0-100.0); Monocytes % (auto) 7.1 % (0.0-12.0); Neutrophils # (auto) 5.7 10 ^3/uL (1.6-8.6); Neutrophils % (auto) 65.5 % (37.0-80.0); Platelet Count (auto) 605 10^3/uL (140-450); Red Blood Cells 4.58 10^6/uL (4.0-5.20); Red Cell Distribution Width 16.6 % (11.8-14.3)
--- NOTE | 2024-10-24 10:27 | DVH ---
EXAM: XY CHEST PORTABLE HISTORY: sob COMPARISON: XY CHEST PORTABLE on DOS: 01/12/24 TECHNIQUE: Portable AP view of the chest was performed. FINDINGS: There is a new hazy infiltrate in the right lung base. No other infiltrates, thorax, or pul monary edema. There is mild elevation of the right hemidiaphragm. The heart is mildly enlarged. The a ortic arch is calcific. IMPRESSION: 1. New right basilar pneumonia. 2. Cardiomegaly and atherosclerotic vascular disease.
[2024-10-24 10:35] LABS: Urine Bacteria None Seen /hpf (None Seen)
[2024-10-24 10:42] VITALS: PULSE 53; RESP 16; O2SAT 96
[2024-10-24 10:46] LABS: Chloride 107 mmol/L (98-107); Potassium 3.6 mmol/L (3.5-5.1); Sodium 142 mmol/L (136-145)
[2024-10-24 10:46] LABS: Urine Blood Negative /uL (Negative); Urine Clarity Clear (Clear); Urine Color Light-Yellow (Yellow); Urine Protein, UAD Negative (Negative); Urine Specific Gravity 1.012 (1.001-1.035); Urine Squamous Epithelial Cell FEW /hpf (<5); Urine Urobilinogen Normal (Negative); Urine WBC 1 /HPF (0-5); Urine pH 7.5 (5.0-9.0)
[2024-10-24] MEDS: hydrALAZINE HCL 20 MG/ML VL IV ONE (10:46)
[2024-10-24 10:47] LABS: Anion Gap 4 (5-15); Calcium 9.7 mg/dL (8.7-10.4)
[2024-10-24 10:48] LABS: Carbon Dioxide 31 mmol/L (20-31)
[2024-10-24 10:52] LABS: Blood Urea Nitrogen 9 mg/dL (9-23); Glucose 95 mg/dL (74-106)
[2024-10-24] MEDS: levoFLOXacin 500MG 100 ML IV ONE (11:45)
[2024-10-24] MEDS ORDERED: HYDROcodone-ACET 5/325MG TAB PO PRN (16:45)
[2024-10-24] MEDS ORDERED: ALBUTEROL SULF 2.5 MG/0.5ML(0.5%) NEB SOLN NEB PRN (16:45)
[2024-10-24] MEDS ORDERED: ONDANSETRON HCL 4 MG/2 ML VIAL IV PRN (16:45)
[2024-10-24] MEDS ORDERED: ACETAMINOPHEN 325 MG TAB PO PRN (16:45)
[2024-10-24] MEDS ORDERED: IPRATROPIUM BROM 0.5 MG/2.5ML INH SOL NEB PRN (16:45)
[2024-10-24] MEDS: SODIUM CHLORIDE 0.9% 1,000 ML IV SCH (16:45)
[2024-10-24] MEDS ORDERED: APIX5TAB (16:57)
[2024-10-24] MEDS ORDERED: QUET1TAB11 PO (16:57)
[2024-10-24] MEDS ORDERED: GABA-1250 (16:57)
--- NOTE | 2024-10-24 17:11 | DVHHP2 ---
History of Present Illness Reason for Visit: urinary and rectal pain History of Present Illness Jailyn Dubois is an 83-year-old female with past medical history of hypertension, hyperlipidemia, COPD, asthma, thyroid disease, dementia, CVA, and who presents to the ED with urinary and rectal pain. Patient is complaining of diarrhea with no bloody stools reported. Per daughter she states that there has been no vaginal bleeding however patient states that she has been seeing pink tinged blood when she voids. Patient states that she is currently weak and is using a wheelchair. Patient's daughter states that the patient does not take aspirin but does take Eliquis and unsure why. Patient denies any chest pain, shortness of breath, fever, chills, recent trauma or injury, lightheadedness, dizziness, shortness of breath, abdominal pain, nausea, vomiting. 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: Other (Dementia and CVA) Endocrine: Hypothyroidism Past Surgical History: Smoke: Quit ALCOHOL: none (Quit drinking) Drugs: None Lives: with Family Domestic Violence: Neg Review of Systems Gastrointestinal: Diarrhea Genitourinary: Dysuria Other Rectal pain Allergies: Coded Allergies: NO KNOWN ALLERGIES (Unverified , 01/07/24) Medications Current Medications Medications Dose Ordered Sig/Osvaldo Route Start Time Stop Time Status Last Admin Dose Admin Sodium Chloride 1,000 ml @ 100 mls/hr Q10H IV 10/24/24 16:45 Hydralazine HCl 10 mg Q6HP PRN IV 10/24/24 16:45 Levofloxacin/ Dextrose 100 ml @ 100 mls/hr DAILY IV 10/25/24 10:00 UNV Budesonide 0.5 mg BID NEB 10/24/24 22:00 UNV Albuterol 2.5 mg Q4HPRN PRN NEB 10/24/24 16:45 Ipratropium [place] 0.5 mg Q4HPRN PRN NEB 10/24/24 16:45 Acetaminophen/ Hydrocodone Bitart 1 tab Q4HP PRN PO 10/24/24 16:45 Ondansetron HCl 4 mg Q4HP PRN IV 10/24/24 16:45 Enoxaparin Sodium 30 mg DAILY SC 10/25/24 10:00 UNV Acetaminophen 650 mg Q6HP PRN PO 10/24/24 16:45 Exam Vital Signs Vital Signs Date Time Temp Pulse Resp B/P (MAP) Pulse Ox O2 Delivery O2 Flow Rate FiO2 10/24/24 10:46 190/82 10/24/24 10:42 53 16 96 Room Air* 0 21 10/24/24 10:40 98.1 98.1 General Appearance: Alert, Oriented X3, Cooperative, No acute distress HEENT: Atraumatic, PERRLA, EOMI, Mucous membr. moist/pink Respiratory: Clear to auscultation, Normal air movement Cardiovascular: Normal S1, Normal S2, No murmurs Abdominal: Soft, No tenderness, No hepatospenomegaly, No masses Neuro: Normal speech, Sensation intact Psych/Mental Status: Mental status NL Labs/Xrays Labs Test 10/24/24 10:08 10/24/24 10:06 Range/Units White Blood Count 8.6 4.4-10.8 10^3/uL Red Blood Count 4.58 4.0-5.20 10^6/uL Hemoglobin 13.1 12.2-16.2 g/dL Hematocrit 39.6 36.0-46.0 % Mean Corpuscular Volume 86.5 80.0-100.0 fL Mean Corpuscular Hemoglobin 28.6 28.0-32.0 pg Mean Corpuscular Hemoglobin Concent 33.1 32.0-36.0 g/dL Red Cell Distribution Width 16.6 H 11.8-14.3 % Platelet Count 605 H 140-450 10^3/uL Mean Platelet Volume 6.9 6.9-10.8 fL Neutrophils (%) (Auto) 65.5 37.0-80.0 % Lymphocytes (%) (Auto) 23.4 10.0-50.0 % Monocytes (%) (Auto) 7.1 0.0-12.0 % Eosinophils (%) (Auto) 2.7 0.0-7.0 % Basophils (%) (Auto) 1.3 0.0-2.0 % Neutrophils # (Auto) 5.7 1.6-8.6 10 ^3/uL Lymphocytes # (Auto) 2.0 0.4-5.4 10 ^3/uL Monocytes # (Auto) 0.6 0-1.3 10 ^3/uL Eosinophils # (Auto) 0.2 0-0.8 10 ^3/uL Basophils # (Auto) 0.1 0-0.2 10 ^3/uL Nucleated Red Blood Cells 0.1 % Sodium Level 142 136-145 mmol/L Potassium Level 3.6 3.5-5.1 mmol/L Chloride Level 107 98-107 mmol/L Carbon Dioxide Level 31 20-31 mmol/L Anion Gap 4 L 5-15 Blood Urea Nitrogen 9 9-23 mg/dL Creatinine 1.13 H 0.550-1.02 mg/dL Glomerular Filtration Rate Calc 49 >90 mL/min BUN/Creatinine Ratio 8.0 L 10.0-20.0 Serum Glucose 95 74-106 mg/dL Calcium Level 9.7 8.7-10.4 mg/dL Troponin I High Sensitivity 6 </=34 ng/L Urine Color Light-yellow Yellow Urine Clarity Clear Clear Urine pH 7.5 5.0-9.0 Urine Specific [place] 1.012 1.001-1.035 Urine Protein Negative Negative Urine Ketones Negative Negative Urine Blood Negative Negative /uL Urine Nitrite Negative Negative Urine Bilirubin Negative Negative Urine Urobilinogen Normal Negative mg/dL Urine Leukocyte Esterase Negative Negative /uL Urine RBC 1 0 - 4 /hpf Urine Microscopic WBC 1 0-5 /HPF Urine Squamous Epithelial Cells Few <5 /hpf Urine Bacteria None seen None Seen /hpf Urine Glucose Normal Normal mg/dL EXAM: XY CHEST PORTABLE HISTORY: sob COMPARISON: XY CHEST PORTABLE on DOS: 01/12/24 TECHNIQUE: Portable AP view of the chest was performed. FINDINGS: There is a new hazy infiltrate in the right lung base. No other infiltrates, thorax, or pulmonary edema. There is mild elevation of the right hemidiaphragm. The heart is mildly enlarged. The aortic arch is calcific. IMPRESSION: 1. New right basilar pneumonia. 2. Cardiomegaly and atherosclerotic vascular disease. Assessment/Plan Assessment/Plan Assessment Intractable urinary and rectal pain Bradycardia PNA MADELEINE Hypertensive urgency Cardiomegaly History of hypertension History of hyperlipidemia History of COPD and asthma History of thyroid disease History of dementia History of CVA Plan Admit to tele IV fluids UA noted IV antibiotics-Levaquin Antihypertensives Checks x-ray Troponin negative Urine bacterial culture Stool culture P.r.n. Respiratory treatments Resume home medications, patient on Eliquis Diet Discussed plan of care with patient, patient's daughter, and nurse Cardiology consult for bradycardia Hold stool softeners Plan discussed with: Patient, Daughter My Orders Orders - HERMES HINOJOSA CREAMERY WORKER Procedure Category Date Status Time Sodium Chloride 0.9% PHA 10/24/24 In Process 16:45 Stool Bacterial KENDRICK 10/24/24 Logged Culture 16:44 Urine Bacterial KENDRICK 10/24/24 In Process Culture 16:44 Hydralazine Injection PHA 10/24/24 In Process (Apresoline Inject 16:45 Levofloxacin 500mg PHA 10/25/24 Logged (Levaquin 500mg/ 100m 10:00 Budesonide PHA 10/24/24 Logged (Inhalation) 22:00 Albuterol Medneb PHA 10/24/24 In Process (Ventolin Medneb) 16:45 Ipratropium Medneb PHA 10/24/24 In Process (Atrovent Medneb) 16:45 Admit ADMIT 10/24/24 Transmitted 16:44 Allergies RAFFAELE 10/24/24 In Process 16:44 Code Status CODE 10/24/24 Transmitted 16:44 Hydrocodone-Acet PHA 10/24/24 In Process 5/325mg Tab ([place] 16:45 Ondansetron Hcl PHA 10/24/24 In Process (Zofran) 16:45 Complete Blood Count LAB 10/25/24 Verified 04:00 Comprehensive LAB 10/25/24 Verified Metabolic Panel 04:00 Cardiac DIET 10/24/24 Transmitted Diet-2gna,Lofat,Lochol Dinner Enoxaparin Sodium PHA 10/25/24 Logged (Lovenox) 10:00 Acetaminophen Tablet PHA 10/24/24 In Process (Tylenol Tablet) 16:45 Amlodipine Tablet PHA 10/25/24 Verified (Norvasc Tablet) 10:00 Atorvastatin (Lipitor) PHA 10/24/24 Verified 22:00 Carvedilol Tablet PHA 10/24/24 Verified (Coreg Tablet) 22:00 Latanoprost (Xalatan) PHA 10/24/24 Verified 18:00 Timolol 0.5% Opth PHA 10/24/24 Verified Soln (Timoptic 0.5%) 22:00 (Nf) Levothyroxine PHA 10/25/24 Verified Sodium 07:00 Date of Service: Oct 24, 2024 Billing Provider: HERMES HINOJOSA CREAMERY WORKER Common Visit Codes: [id number] INP/OBS CARE (HIGH) HERMES HINOJOSA CREAMERY WORKER Oct 24, 2024 17:11
[2024-10-24] MEDS: LATANOPROST 0.005 % OPTH(EYE) SOL 2.5ML EACHEYE SCH (18:00)
[2024-10-24] MEDS: HALOPERIDOL LACTATE 5 MG/ML INJ VIAL IV ONE (18:59)
[2024-10-24 19:00] VITALS: BP 163/84; PULSE 114; RESP 17; TEMP 99.2; O2SAT 96
[2024-10-24 20:58] VITALS: PULSE 102; RESP 18; O2SAT 98
[2024-10-24] MEDS: ATORVASTATIN 20 MG TAB PO SCH (22:00)
[2024-10-24] MEDS: BUDESONIDE (INHALATION) 0.5 MG/2 ML NEB NEB SCH (22:00)
[2024-10-24] MEDS: CARVEDILOL 12.5 MG TAB PO SCH (22:00)
[2024-10-24] MEDS: TIMOLOL MAL 0.5% OPTH(EYE) SOL 5ML OP SCH (22:00)
[2024-10-25 07:00] VITALS: O2SAT 95
[2024-10-25] MEDS: LEVOTHYROXINE SODIUM 25 MCG TAB PO SCH (07:00)
[2024-10-25] MEDS: LEVOTHYROXINE SODIUM 100 MCG TAB PO SCH (07:00)
[2024-10-25 07:30] VITALS: PULSE 77; RESP 16; O2SAT 94
[2024-10-25 09:14] LABS: Eosinophils # (auto) 0.1 10 ^3/uL (0-0.8); Monocytes # (auto) 0.7 10 ^3/uL (0-1.3); Nucleated Red Blood Cells % 0.1 %
[2024-10-25 09:16] LABS: Basophils # (auto) 0.1 10 ^3/uL (0-0.2); Basophils % (auto) 1.2 % (0.0-2.0); Eosinophils % (auto) 1.5 % (0.0-7.0); Hematocrit 38.5 % (36.0-46.0); Lymphocytes # (auto) 1.9 10 ^3/uL (0.4-5.4); Lymphocytes % (auto) 20.7 % (10.0-50.0); Mean Corpuscular Hemoglobin 29.5 pg (28.0-32.0); Mean Corpuscular Hgb Conc. 33.8 g/dL (32.0-36.0); Mean Corpuscular Volume 87.3 fL (80.0-100.0); Neutrophils # (auto) 6.6 10 ^3/uL (1.6-8.6); Neutrophils % (auto) 69.6 % (37.0-80.0); Platelet Count (auto) 599 10^3/uL (140-450); Red Blood Cells 4.41 10^6/uL (4.0-5.20); Red Cell Distribution Width 16.9 % (11.8-14.3); White Blood Cell 9.4 10^3/uL (4.4-10.8)
[2024-10-25] MEDS ORDERED: ENOXAPARIN SOD 30 MG/0.3 ML SYRINGE SC SCH (10:00)
[2024-10-25] MEDS: amLODIPine BESYLATE 5 MG TAB PO SCH (10:00)
[2024-10-25 10:03] LABS: Alanine Aminotransferase 24 U/L (7-40); Alkaline Phosphatase 93 U/L (46-116); Anion Gap 7 (5-15); BUN/Creatinine Ratio 10.8 (10.0-20.0); Blood Urea Nitrogen 10 mg/dL (9-23); Calcium 9.7 mg/dL (8.7-10.4); Carbon Dioxide 27 mmol/L (20-31); Glucose 91 mg/dL (74-106); Sodium 142 mmol/L (136-145)
[2024-10-25 10:04] LABS: Total Protein 7.3 g/dL (5.7-8.2)
[2024-10-25 10:05] LABS: Albumin 4.2 g/dL (3.2-4.8); Aspartate Aminotransferase 25 U/L (13-40); Bilirubin, Total 0.6 mg/dL (0.2-1.0)
[2024-10-25 10:07] LABS: Chloride 108 mmol/L (98-107); Potassium 3.2 mmol/L (3.5-5.1)
[2024-10-25] MEDS: levoFLOXacin 500MG 100 ML IV SCH (10:09)
[2024-10-25] MEDS: risperiDONE 1 MG TAB PO ONE (12:15)
[2024-10-25] MEDS: HALOPERIDOL LACTATE 5 MG/ML INJ VIAL ONE (14:16)
[2024-10-25] MEDS: HALOPERIDOL LACTATE 5 MG/ML INJ VIAL IM ONE (14:17)
--- NOTE | 2024-10-25 15:20 | DVHPN2 ---
Subjective Patient denies any symptoms. Reviewed: Care Plan, H&P, Labs, Previous Orders Changes from previous H/P or p: No Changes General: Per HPI Gastrointestinal: Diarrhea Genitourinary: Dysuria Objective Vitals Vital Signs Date Time Temp Pulse Resp B/P (MAP) Pulse Ox O2 Delivery O2 Flow Rate FiO2 10/25/24 14:00 107 18 161/95 (117) 96 10/25/24 07:30 97.7 97.7 10/25/24 07:30 Room Air* 0 21 Intake/Output Intake and Output 10/25/24 07:00 Intake Total 1000 ml Balance 1000 ml Intake IV Total 1000 ml General Appearance: Alert, mild distress, Other (Confused) HEENT: Atraumatic, PERRLA Lungs: Clear to auscultation, Normal air movement Cardiovascular: Normal S1, Normal S2 Abdomen: Normal bowel sounds, Soft, No tenderness, No hepatospenomegaly, No masses Musculoskeletal: Normal sensory function, Normal motor function Extremities: No clubbing, No cyanosis, No edema, Normal pulses, No tenderness/swelling Psych/Mental Status: Mental status NL, Mood NL Medications Current Medications Medications Dose Ordered Sig/Osvaldo Route Start Time Stop Time Status Last Admin Dose Admin Sodium Chloride 1,000 ml @ 100 mls/hr Q10H IV 10/24/24 16:45 10/25/24 12:45 100 MLS/HR Hydralazine HCl 10 mg Q6HP PRN IV 10/24/24 16:45 Levofloxacin/ Dextrose 100 ml @ 100 mls/hr DAILY IV 10/25/24 10:00 10/25/24 10:09 100 MLS/HR Budesonide 0.5 mg BID NEB 10/24/24 22:00 Albuterol 2.5 mg Q4HPRN PRN NEB 10/24/24 16:45 Ipratropium [place] 0.5 mg Q4HPRN PRN NEB 10/24/24 16:45 Acetaminophen/ Hydrocodone Bitart 1 tab Q4HP PRN PO 10/24/24 16:45 Ondansetron HCl 4 mg Q4HP PRN IV 10/24/24 16:45 Acetaminophen 650 mg Q6HP PRN PO 10/24/24 16:45 Amlodipine Besylate 10 mg DAILY PO 10/25/24 10:00 Atorvastatin Calcium 40 mg HS PO 10/24/24 22:00 Carvedilol 12.5 mg BID PO 10/24/24 22:00 Latanoprost 1 drop QPM EACHEYE 10/24/24 18:00 Timolol Maleate 0.5 drop BID OP 10/24/24 22:00 Levothyroxine Sodium 100 mcg QAM PO 10/25/24 07:00 Levothyroxine Sodium 25 mcg QAM PO 10/25/24 07:00 Alprazolam 0.5 mg PRN PO 10/25/24 12:15 UNV Quetiapine Fumarate 25 mg QHSP PRN PO 10/25/24 12:15 Laboratory Results Laboratory Tests 10/25/24 08:47 Chemistry Test 10/25/24 08:47 Albumin 4.2 g/dL (3.2-4.8) Calcium Level 9.7 mg/dL (8.7-10.4) Total Protein 7.3 g/dL (5.7-8.2) LFT Test 10/25/24 08:47 Alanine Aminotransferase (ALT) 24 U/L (7-40) Alkaline Phosphatase 93 U/L (46-116) Aspartate Amino Transferase (AST) 25 U/L (13-40) Total Bilirubin 0.6 mg/dL (0.2-1.0) Urinalysis Test 10/24/24 10:06 Urine Color Light-yellow (Yellow) Urine Clarity Clear (Clear) Urine pH 7.5 (5.0-9.0) Urine Specific [place] 1.012 (1.001-1.035) Urine Protein Negative (Negative) Urine Ketones Negative (Negative) Urine Blood Negative /uL (Negative) Urine Nitrite Negative (Negative) Urine Bilirubin Negative (Negative) Urine Urobilinogen Normal mg/dL (Negative) Urine Leukocyte Esterase Negative /uL (Negative) Urine RBC 1 /hpf (0 - 4) Urine Microscopic WBC 1 /HPF (0-5) Urine Squamous Epithelial Cells Few /hpf (<5) Urine Bacteria None seen /hpf (None Seen) Urine Glucose Normal mg/dL (Normal) Microbiology Microbiology Date/Time Source Procedure Growth Status 10/24/24 10:06 Voided Urine Urine Culture - Preliminary Resulted Labs and/or images reviewed: Labs reviewed by me, Image(s) reviewed by me Assessment/Plan Assessment/Plan Impression: -left lower lobe pneumonia -dementia -? Bradycardia -primary hypertension -asthma -dyslipidemia -thrombocytosis Plan: -continue IV antibiotic therapy with Levaquin -restart home medications for agitation -bronchodilators -antihypertensives: Decrease carvedilol to 3.125 twice a day given reported bradycardia -repeat labs and chest x-ray in a.m. Total time spent with patient discussing and formulating plan of care: 35 minutes. This medical document was created using an electronic medical record system with [employer] dictation system. Although this document has been carefully reviewed, there may still be some phonetic and typographical errors. These areas are purely typographical due to imperfections of the software programs, and do not reflect any compromise in the patient's medical care. Plan discussed with: Patient, Other (RN) My Orders Orders - CAIO ZARATE NP Procedure Category Date Status Time Alprazolam Tablet PHA 10/25/24 Pending (Xanax Tablet) 12:15 Quetiapine Fumarate PHA 10/25/24 In Process Tablet (Seroquel Tab 12:15 Carvedilol Tablet PHA 10/25/24 Verified (Coreg Tablet) 22:00 Ns W Potassium 40meq PHA 10/25/24 Verified 15:15 Haloperidol Lactate PHA 10/25/24 Verified Injection (Haldol) 15:15 Date of Service: Oct 25, 2024 Billing Provider: CAIO ZARATE NP Common Visit Codes: [id number] INP/OBS CARE(HIGH) CAIO ZARATE NP Oct 25, 2024 15:20
[2024-10-25] MEDS ORDERED: HYDROcodone-ACET 5/325MG TAB PO PRN (15:30)
[2024-10-25] MEDS ORDERED: ONDANSETRON HCL 4 MG/2 ML VIAL IV PRN (15:30)
[2024-10-25] MEDS: SOD CHL 0.9%/ KCL 40MEQ 1,000 ML IV ONE (16:20)
--- NOTE | 2024-10-25 16:32 | DVHINCON2 ---
Date Seen: Oct 25, 2024 Referring Physician LYNNETTE De Luna Reason for Consultation Bradycardia History of Present Illness This is an 83-year-old female patient who presents to emergency room with chief complaint of shortness of breath. At the time of assessment, the patient was confused, restless, and combative. Past medical history obtained from chart as well as bedside RN. According to documentation, the patient was initially brought in for shortness of breath. Cardiology has been consulted at this point for bradycardia. No initial twelve lead electrocardiogram was obtained upon admission. After reviewing court monitor, the patient was noted to have episodes of sinus bradycardia without pauses or atrioventricular blocks. It was also likely that these bradycardic events are while the patient was sleeping, given that it was happening around the 0200 hour. While at bedside, the patient was in normal sinus rhythm. Significant past medical history includes hypertension, dyslipidemia, asthma, glaucoma and dementia. Past Medical History Past medical history reviewed. No other significant than mentioned above. Past Surgical History Unable to obtain Family History: Cardiovascular disease G8 BROTHER Cerebrovascular accident (CVA) G8 BROTHER FH: dementia G8 SISTER Hypertension G8 MOTHER G8 BROTHER Family History Family history reviewed. Social History Unable to obtain Allergies: Coded Allergies: NO KNOWN ALLERGIES (Unverified , 01/07/24) Home Meds Active Scripts Polyethylene Glycol 3350 (Miralax) 17 Gm Pow, 17 GM PO QDAILY, #1 BOTTLE MIXED 17 G OR 1 CAPFUL WITH 8 OZ OF WATER EVERY DAY TO HELP WITH CONSTIPATION Prov:JERRELL DIAZ MD 10/20/24 Atorvastatin Calcium (ATORVASTATIN CALCIUM) 20 Mg Tab, 40 MG PO HS for 30 Days, #60 TAB Prov:MADDISON PEREZ RESIDENT 01/15/24 Aspirin (Aspirin Low Dose) 81 Mg Tab, 81 MG PO DAILY for 30 Days, #30 TAB Prov:MADDISON PEREZ RESIDENT 01/15/24 Amlodipine Besylate (NORVASC TABLET) 5 Mg Tb, 10 MG PO DAILY for 30 Days, #60 TAB Prov:MADDISON PEREZ RESIDENT 01/15/24 Hydrocodone-Acetaminophen (Hydrocodone Bitartrate/AC 5-325 mg) 1 Tab Tab, 1 TAB PO Q8HP PRN, #20 TAB Prov:AGATA VIREA PAC 01/08/24 Reported Medications Apixaban Base (ELIQUIS) 5 Mg Tab, 1 10/24/24 Gabapentin (Gabapentin) 300 Mg Cap, 1 10/24/24 Quetiapine Fumerate (QUETIAPINE FUMARATE) 25 Mg Tab, 1 TAB PO QHSP PRN 10/24/24 Latanoprost (LATANOPROST) 0.005 % Alyse, 1 DROP EACHEYE QPM, #7.5 ML 3 Refills 01/12/24 Timolol Maleate (Ophth) (Timolol Maleate) 0.5 % Alyse, 1.25 % OP BID, ML 01/12/24 Alprazolam (Alprazolam) 0.5 Mg Tab, 1 TAB PO PRN, #30 TAB 01/12/24 Carvedilol (Carvedilol) 12.5 Mg Tab, 12.5 MG PO BID for 30 Days, MG 01/12/24 Levothyroxine Sodium (Levothyroxine Sodium) 125 Mcg Tab, 125 MCG PO QAM for 30 Days, MCG 01/12/24 Home Meds Home medications reviewed. Current Medications Current Medications Medications (Trade) Dose Ordered Sig/Osvaldo Route PRN Reason Start Time Stop Time Status Last Admin Sodium Chloride 1,000 ml @ 100 mls/hr Q10H IV 10/24/24 16:45 10/25/24 15:17 DC 10/25/24 12:45 Hydralazine HCl (Apresoline Injection) 10 mg Q6HP PRN IV SBP>150 10/24/24 16:45 Levofloxacin/ Dextrose 100 ml @ 100 mls/hr DAILY IV 10/25/24 10:00 10/25/24 10:09 Budesonide (Pulmicort) 0.5 mg BID NEB 10/24/24 22:00 Albuterol (Ventolin Medneb) 2.5 mg Q4HPRN PRN NEB SHORTNESS OF BREATH 10/24/24 16:45 10/25/24 15:40 DC Ipratropium [place] (Atrovent Medneb) 0.5 mg Q4HPRN PRN NEB SHORTNESS OF BREATH 10/24/24 16:45 10/25/24 15:40 DC Acetaminophen/ Hydrocodone Bitart (Lindsey 5/325MG Tab) 1 tab Q4HP PRN PO MODERATE PAIN (4-6 PAIN SCALE) 10/24/24 16:45 10/25/24 15:40 DC Ondansetron HCl (Zofran) 4 mg Q4HP PRN IV NAUSEA / VOMITING 10/24/24 16:45 10/25/24 15:40 DC Enoxaparin Sodium (Lovenox) 30 mg DAILY SC 10/25/24 10:00 10/24/24 17:05 DC Acetaminophen (Tylenol Tablet) 650 mg Q6HP PRN PO PAIN SCALE 1-3 OR TEMP>100.4 10/24/24 16:45 10/25/24 15:40 DC Amlodipine Besylate (Norvasc Tablet) 10 mg DAILY PO 10/25/24 10:00 Atorvastatin Calcium (Lipitor) 40 mg HS PO 10/24/24 22:00 Carvedilol (Coreg Tablet) 12.5 mg BID PO 10/24/24 22:00 10/25/24 15:17 DC Latanoprost (Xalatan) 1 drop QPM EACHEYE 10/24/24 18:00 Timolol Maleate (Timoptic 0.5%) 0.5 drop BID OP 10/24/24 22:00 Levothyroxine Sodium (Synthroid Tablet) 100 mcg QAM PO 10/25/24 07:00 Levothyroxine Sodium (Synthroid Tablet) 25 mcg QAM PO 10/25/24 07:00 Alprazolam (Xanax Tablet) 0.5 mg BID PRN PO ANXIETY 10/25/24 22:00 Quetiapine Fumarate (SEROquel TABLET) 25 mg QHSP PRN PO AGITATION 10/25/24 12:15 Carvedilol (Coreg Tablet) 3.125 mg BID PO 10/25/24 22:00 Haloperidol Lactate (Haldol) 2.5 mg Q8HP PRN IV AGITATION 10/25/24 15:15 Morphine Sulfate 1 mg Q4HPRN PRN IV SEVERE PAIN (7-10 PAIN SCALE) 10/25/24 15:30 Acetaminophen/ Hydrocodone Bitart ([place] 5/325MG Tab) 1 tab Q6HPRN PRN PO MODERATE PAIN (4-6 PAIN SCALE) 10/25/24 15:30 Acetaminophen (Tylenol Tablet Or Capsule) 500 mg Q8HP PRN PO PAIN SCALE 1-3 OR TEMP>100.4 10/25/24 15:30 Ondansetron HCl (Zofran) 4 mg Q6HP PRN IV NAUSEA / VOMITING 10/25/24 15:30 Albuterol (Ventolin Medneb) 2.5 mg Q4HPRN PRN NEB SHORTNESS OF BREATH 10/25/24 15:30 Ipratropium [place] (Atrovent Medneb) 0.5 mg Q4HPRN PRN NEB SHORTNESS OF BREATH 10/25/24 15:30 Review of Systems Constitutional: No symptom reported Ears, Nose, & Throat: No symptom reported Eyes: No symptom reported Neurological: No symptoms reported Pulmonary/Respiratory: Shortness of breath Cardiovascular: No symptom reported Gastrointestinal: No symptom reported Genitourinary: No symptom reported Musculoskeletal: No symptom reported Skin: No symptom reported Psychiatric: No symptom reported Endocrine: No symptom reported Hematologic/Lymphatic: No symptom reported Vital Signs Vital Signs Date Time Temp Pulse Resp B/P (MAP) Pulse Ox O2 Delivery O2 Flow Rate FiO2 10/25/24 14:00 107 18 161/95 (117) 96 10/25/24 07:30 97.7 97.7 10/25/24 07:30 Room Air* 0 21 Physical Exam General Appearance: Restless, uncooperative, combative Pulmonary/Respiratory: Diminished bilateral lower lobes Cardiovascular/Chest: Regular rate and rhythm. Peripheral Pulses: 2+ Radial (R). 2+ Radial (L). 2+ Pedal (R). 2+ Pedal (L) Abdominal Exam: Normal bowel sounds. Ankle Exam: Negative ankle edema Lower extremities: Negative lower extremity edema Neuro/Mental Status: Confused, A&O x 0 Thoughts/Psych: Deferred Appearance: No acute distress. Skin Exam: Normal inspection. Normal color. Warm and dry. Labs/Diagnostic Data Labs Test 10/25/24 08:47 10/24/24 10:08 10/24/24 10:06 Range/Units White Blood Count 9.4 4.4-10.8 10^3/uL Red Blood Count 4.41 4.0-5.20 10^6/uL Hemoglobin 13.0 12.2-16.2 g/dL Hematocrit 38.5 36.0-46.0 % Mean Corpuscular Volume 87.3 80.0-100.0 fL Mean Corpuscular Hemoglobin 29.5 28.0-32.0 pg Mean Corpuscular Hemoglobin Concent 33.8 32.0-36.0 g/dL Red Cell Distribution Width 16.9 H 11.8-14.3 % Platelet Count 599 H 140-450 10^3/uL Mean Platelet Volume 6.8 L 6.9-10.8 fL Neutrophils (%) (Auto) 69.6 37.0-80.0 % Lymphocytes (%) (Auto) 20.7 10.0-50.0 % Monocytes (%) (Auto) 7.0 0.0-12.0 % Eosinophils (%) (Auto) 1.5 0.0-7.0 % Basophils (%) (Auto) 1.2 0.0-2.0 % Neutrophils # (Auto) 6.6 1.6-8.6 10 ^3/uL Lymphocytes # (Auto) 1.9 0.4-5.4 10 ^3/uL Monocytes # (Auto) 0.7 0-1.3 10 ^3/uL Eosinophils # (Auto) 0.1 0-0.8 10 ^3/uL Basophils # (Auto) 0.1 0-0.2 10 ^3/uL Nucleated Red Blood Cells 0.1 % Sodium Level 142 136-145 mmol/L Potassium Level 3.2 L 3.5-5.1 mmol/L Chloride Level 108 H 98-107 mmol/L Carbon Dioxide Level 27 20-31 mmol/L Anion Gap 7 5-15 Blood Urea Nitrogen 10 9-23 mg/dL Creatinine 0.93 0.550-1.02 mg/dL Glomerular Filtration Rate Calc 62 >90 mL/min BUN/Creatinine Ratio 10.8 10.0-20.0 Serum Glucose 91 74-106 mg/dL Calcium Level 9.7 8.7-10.4 mg/dL Total Bilirubin 0.6 0.2-1.0 mg/dL Aspartate Amino Transferase (AST) 25 13-40 U/L Alanine Aminotransferase (ALT) 24 7-40 U/L Alkaline Phosphatase 93 46-116 U/L Total Protein 7.3 5.7-8.2 g/dL Albumin 4.2 3.2-4.8 g/dL Lactate Dehydrogenase 354 H 120-246 U/L Troponin I High Sensitivity 6 </=34 ng/L Urine Color Light-yellow Yellow Urine Clarity Clear Clear Urine pH 7.5 5.0-9.0 Urine Specific [place] 1.012 1.001-1.035 Urine Protein Negative Negative Urine Ketones Negative Negative Urine Blood Negative Negative /uL Urine Nitrite Negative Negative Urine Bilirubin Negative Negative Urine Urobilinogen Normal Negative mg/dL Urine Leukocyte Esterase Negative Negative /uL Urine RBC 1 0 - 4 /hpf Urine Microscopic WBC 1 0-5 /HPF Urine Squamous Epithelial Cells Few <5 /hpf Urine Bacteria None seen None Seen /hpf Urine Glucose Normal Normal mg/dL Microbiology Date/Time Source Procedure Growth Status 10/24/24 10:06 Voided Urine Urine Culture - Preliminary Resulted Assessment Intermittent sinus bradycardia, now normal sinus rhythm Hypertension Dyslipidemia Pneumonia Glaucoma Dementia Plan/Recommendation We will continue with following plan/recommendations (Dr. St): Patient seen and examined at bedside with . At the time of assessment, the patient is confused. The patient's daughter and son are at bedside and the plan was discussed with them. The patient was noted to have episodes of sinus bradycardia while sleeping with heart rate reaching as low as 48 bpm. No pauses or atrioventricular heart blocks noted on court monitor. Patient does take carvedilol at home as well as timolol eye drops, which both can contribute to bradycardia. Patient not bradycardic at time of assessment or while awake. No indication for further cardiac intervention at this point. Cardiology will sign off. Thank you for allowing us to care for this patient. Please call with any q uestions or concerns. Critical care time spent:40 minutes This medical document was created using an electronic medical record system with voice recognition software and computerized dictation system. Although this document has been carefully reviewed, there might still be some phonetic and typographical errors. Occasional wrong-word or ``sound-alike substitutions may have occurred due to the inherent limitations of voice recognition software. These areas are purely typographical due to imperfections of the software programs and do not reflect any compromise in the patient's medical care. Please read the chart carefully and recognize, using context, where these substitutions have occurred. Plan discussed with: Daughter, Other (Bedside RN) NYHA Physical activity limitations: NA Date of Service: Oct 25, 2024 Billing Provider: DONAVON ST MD Cardiology Common Codes: [id number] INP/OBS CARE (High) Cardiology Consultation Codes: [id number] CONSULT <45MIN MENDEL WHALEY Oct 25, 2024 16:32
[2024-10-25 19:33] VITALS: PULSE 85; RESP 18; O2SAT 95
[2024-10-25 21:40] VITALS: PULSE 87; RESP 16; O2SAT 96
[2024-10-25 21:45] VITALS: PULSE 85; RESP 16; O2SAT 99
[2024-10-25] MEDS: CARVEDILOL 3.125 MG TAB PO SCH (22:00)
[2024-10-26] VITALS (10 sets, daily range): BP systolic 133–163; BP diastolic 75–87; PULSE 20–99; RESP 16–96; TEMP 97.9–99; O2SAT 91–100
[2024-10-26] MEDS: HALOPERIDOL LACTATE 5 MG/ML INJ VIAL IV PRN (00:41)
[2024-10-26] MEDS: hydrALAZINE HCL 20 MG/ML VL IV PRN ×2 (00:41→22:40)
--- NOTE | 2024-10-26 14:27 | DVHPN2 ---
Subjective in bed resting Reviewed: Care Plan, H&P, Labs, Previous Orders Changes from previous H/P or p: No Changes General: Per HPI Gastrointestinal: Diarrhea Genitourinary: Dysuria Objective Vitals Vital Signs Date Time Temp Pulse Resp B/P (MAP) Pulse Ox O2 Delivery O2 Flow Rate FiO2 10/26/24 13:00 98.6 86 17 151/75 (100) 95 98.6 10/26/24 03:04 Room Air* 0 21 Intake/Output Intake and Output 10/26/24 07:00 Intake Total 475 ml Output Total 300 ml Balance 175 ml Intake IV Total 475 ml Output Urine Total 300 ml # Bowel Movements 1 General Appearance: Alert, mild distress, Other (Confused) HEENT: Atraumatic, PERRLA Lungs: Clear to auscultation, Normal air movement Cardiovascular: Normal S1, Normal S2 Abdomen: Normal bowel sounds, Soft, No tenderness, No hepatospenomegaly, No masses Musculoskeletal: Normal sensory function, Normal motor function Extremities: No clubbing, No cyanosis, No edema, Normal pulses, No tenderness/swelling Psych/Mental Status: Mental status NL, Mood NL Medications Current Medications Medications Dose Ordered Sig/Osvaldo Route Start Time Stop Time Status Last Admin Dose Admin Levofloxacin/ Dextrose 100 ml @ 100 mls/hr DAILY IV 10/25/24 10:00 10/26/24 11:01 100 MLS/HR Budesonide 0.5 mg BID NEB 10/24/24 22:00 10/25/24 21:40 0.5 MG Amlodipine Besylate 10 mg DAILY PO 10/25/24 10:00 10/26/24 11:00 10 MG Atorvastatin Calcium 40 mg HS PO 10/24/24 22:00 Latanoprost 1 drop QPM EACHEYE 10/24/24 18:00 Timolol Maleate 0.5 drop BID OP 10/24/24 22:00 Levothyroxine Sodium 100 mcg QAM PO 10/25/24 07:00 10/26/24 06:12 100 MCG Levothyroxine Sodium 25 mcg QAM PO 10/25/24 07:00 10/26/24 06:11 25 MCG Alprazolam 0.5 mg BID PRN PO 10/25/24 22:00 Quetiapine Fumarate 25 mg QHSP PRN PO 10/25/24 12:15 Carvedilol 3.125 mg BID PO 10/25/24 22:00 10/26/24 11:01 3.125 MG Haloperidol Lactate 2.5 mg Q8HP PRN IV 10/25/24 15:15 10/26/24 00:41 2.5 MG Morphine Sulfate 1 mg Q4HPRN PRN IV 10/25/24 15:30 Acetaminophen/ Hydrocodone Bitart 1 tab Q6HPRN PRN PO 10/25/24 15:30 Acetaminophen 500 mg Q8HP PRN PO 10/25/24 15:30 Ondansetron HCl 4 mg Q6HP PRN IV 10/25/24 15:30 Albuterol 2.5 mg Q4HPRN PRN NEB 10/25/24 15:[address] [place] [address] [place] 0.5 mg Q4HPRN PRN NEB 10/25/24 15:30 Hydralazine HCl 10 mg Q6HP PRN IV 10/26/24 00:30 Laboratory Results Laboratory Tests 10/25/24 08:47 Urinalysis Test 10/24/24 10:06 Urine Color Light-yellow (Yellow) Urine Clarity Clear (Clear) Urine pH 7.5 (5.0-9.0) Urine Specific [place] 1.012 (1.001-1.035) Urine Protein Negative (Negative) Urine Ketones Negative (Negative) Urine Blood Negative /uL (Negative) Urine Nitrite Negative (Negative) Urine Bilirubin Negative (Negative) Urine Urobilinogen Normal mg/dL (Negative) Urine Leukocyte Esterase Negative /uL (Negative) Urine RBC 1 /hpf (0 - 4) Urine Microscopic WBC 1 /HPF (0-5) Urine Squamous Epithelial Cells Few /hpf (<5) Urine Bacteria None seen /hpf (None Seen) Urine Glucose Normal mg/dL (Normal) Microbiology Microbiology Date/Time Source Procedure Growth Status 10/24/24 10:06 Voided Urine Urine Culture - Preliminary Resulted Assessment/Plan Assessment/Plan -left lower lobe pneumonia -dementia -? Bradycardia -primary hypertension -asthma -dyslipidemia -thrombocytosis Plan: -continue IV antibiotic therapy with Levaquin -restart home medications for agitation -bronchodilators -antihypertensives: Decrease carvedilol to 3.125 twice a day given reported bradycardia -repeat labs and chest x-ray in a.m. Total time spent with patient discussing and formulating plan of care: 35 minutes. Plan discussed with: Patient My Orders Orders - CLAYTON SHELTON MD Procedure Category Date Status Time Mrsa Screen KENDRICK 10/26/24 Uncollected 14:02 Date of Service: Oct 26, 2024 Billing Provider: CLAYTON SHELTON MD Common Visit Codes: [id number] INP/OBS CARE(HIGH) CLAYTON SHELTON MD Oct 26, 2024 14:27
[2024-10-26] MEDS: IPRATROPIUM BROM 0.5 MG/2.5ML INH SOL NEB PRN (20:08)
[2024-10-26] MEDS: ALBUTEROL SULF 2.5 MG/0.5ML(0.5%) NEB SOLN NEB PRN (20:08)
[2024-10-26] MEDS: MORPHINE SULFATE INJ 2 MG/ml SYRG IV PRN (23:03)
[2024-10-27] VITALS (16 sets, daily range): BP systolic 131–163; BP diastolic 77–113; PULSE 69–138; RESP 15–22; TEMP 97.4–98.3; O2SAT 96–99
[2024-10-27 11:44] LABS: Basophils # (auto) 0.1 10 ^3/uL (0-0.2); Eosinophils # (auto) 0.2 10 ^3/uL (0-0.8); Eosinophils % (auto) 1.6 % (0.0-7.0); Monocytes % (auto) 9.5 % (0.0-12.0); Red Cell Distribution Width 16.5 % (11.8-14.3)
[2024-10-27 11:45] LABS: Hematocrit 44.3 % (36.0-46.0); Hemoglobin 14.3 g/dL (12.2-16.2); Lymphocytes # (auto) 1.5 10 ^3/uL (0.4-5.4); Lymphocytes % (auto) 13.8 % (10.0-50.0); Mean Corpuscular Hemoglobin 28.1 pg (28.0-32.0); Mean Corpuscular Hgb Conc. 32.3 g/dL (32.0-36.0); Monocytes # (auto) 1.1 10 ^3/uL (0-1.3); Neutrophils # (auto) 8.3 10 ^3/uL (1.6-8.6); Neutrophils % (auto) 74.1 % (37.0-80.0); Nucleated Red Blood Cells % 0.2 %; Platelet Count (auto) 587 10^3/uL (140-450); Red Blood Cells 5.09 10^6/uL (4.0-5.20); White Blood Cell 11.2 10^3/uL (4.4-10.8)
[2024-10-27 11:52] LABS: Potassium 3.8 mmol/L (3.5-5.1); Sodium 139 mmol/L (136-145)
[2024-10-27 11:53] LABS: Anion Gap 7 (5-15); Carbon Dioxide 24 mmol/L (20-31)
[2024-10-27 11:54] LABS: Calcium 9.5 mg/dL (8.7-10.4)
[2024-10-27 11:58] LABS: BUN/Creatinine Ratio 8.6 (10.0-20.0); Glucose 97 mg/dL (74-106)
[2024-10-27 12:02] LABS: Blood Urea Nitrogen 8 mg/dL (9-23); Chloride 108 mmol/L (98-107)
[2024-10-27] MEDS: DOCUSATE SOD 100 MG CAP PO SCH (15:15)
[2024-10-27] MEDS: ALPRAZolam 0.5 MG TAB PO PRN (15:35)
[2024-10-27] MEDS: dilTIAZem 25 MG/5 ML VIAL IV ONE (19:20)
--- NOTE | 2024-10-27 19:59 | DVHPN2 ---
Subjective in bed resting Reviewed: Care Plan, H&P, Labs, Previous Orders Changes from previous H/P or p: No Changes General: Per HPI Gastrointestinal: Diarrhea Genitourinary: Dysuria Objective Vitals Vital Signs Date Time Temp Pulse Resp B/P (MAP) Pulse Ox O2 Delivery O2 Flow Rate FiO2 10/27/24 19:40 131 10/27/24 19:39 131/86 (101) 10/27/24 17:00 97.9 16 96 97.9 10/27/24 08:00 Room Air* 0 21 Intake/Output Intake and Output 10/27/24 07:00 Intake Total 925 ml Output Total 1375 ml Balance -450 ml Intake Oral 925 ml Output Urine Total 1375 ml General Appearance: Alert, mild distress, Other (Confused) HEENT: Atraumatic, PERRLA Lungs: Clear to auscultation, Normal air movement Cardiovascular: Normal S1, Normal S2 Abdomen: Normal bowel sounds, Soft, No tenderness, No hepatospenomegaly, No masses Musculoskeletal: Normal sensory function, Normal motor function Extremities: No clubbing, No cyanosis, No edema, Normal pulses, No tenderness/swelling Psych/Mental Status: Mental status NL, Mood NL Medications Current Medications Medications Dose Ordered Sig/Osvaldo Route Start Time Stop Time Status Last Admin Dose Admin Levofloxacin/ Dextrose 100 ml @ 100 mls/hr DAILY IV 10/25/24 10:00 10/27/24 10:35 100 MLS/HR Budesonide 0.5 mg BID NEB 10/24/24 22:00 10/27/24 05:53 0.5 MG Amlodipine Besylate 10 mg DAILY PO 10/25/24 10:00 10/27/24 10:34 10 MG Atorvastatin Calcium 40 mg HS PO 10/24/24 22:00 Latanoprost 1 drop QPM EACHEYE 10/24/24 18:00 Timolol Maleate 0.5 drop BID OP 10/24/24 22:00 10/27/24 10:34 0.5 DROP Levothyroxine Sodium 100 mcg QAM PO 10/25/24 07:00 10/26/24 06:12 100 MCG Levothyroxine Sodium 25 mcg QAM PO 10/25/24 07:00 10/26/24 06:11 25 MCG Alprazolam 0.5 mg BID PRN PO 10/25/24 22:00 10/27/24 15:35 0.5 MG Quetiapine Fumarate 25 mg QHSP PRN PO 10/25/24 12:15 Carvedilol 3.125 mg BID PO 10/25/24 22:00 10/27/24 10:34 3.125 MG Haloperidol Lactate 2.5 mg Q8HP PRN IV 10/25/24 15:15 10/26/24 00:41 2.5 MG Morphine Sulfate 1 mg Q4HPRN PRN IV 10/25/24 15:30 10/26/24 23:03 1 MG Acetaminophen/ Hydrocodone Bitart 1 tab Q6HPRN PRN PO 10/25/24 15:30 Acetaminophen 500 mg Q8HP PRN PO 10/25/24 15:30 Ondansetron HCl 4 mg Q6HP PRN IV 10/25/24 15:30 Albuterol 2.5 mg Q4HPRN PRN NEB 10/25/24 15:30 10/27/24 05:53 2.5 MG Ipratropium [place] 0.5 mg Q4HPRN PRN NEB 10/25/24 15:30 10/27/24 05:53 0.5 MG Hydralazine HCl 10 mg Q6HP PRN IV 10/26/24 00:30 10/27/24 18:22 10 MG Docusate Sodium 100 mg BID PO 10/27/24 15:15 Laboratory Results Laboratory Tests 10/27/24 10:27 Chemistry Test 10/27/24 10:27 Calcium Level 9.5 mg/dL (8.7-10.4) Urinalysis Test 10/24/24 10:06 Urine Color Light-yellow (Yellow) Urine Clarity Clear (Clear) Urine pH 7.5 (5.0-9.0) Urine Specific [place] 1.012 (1.001-1.035) Urine Protein Negative (Negative) Urine Ketones Negative (Negative) Urine Blood Negative /uL (Negative) Urine Nitrite Negative (Negative) Urine Bilirubin Negative (Negative) Urine Urobilinogen Normal mg/dL (Negative) Urine Leukocyte Esterase Negative /uL (Negative) Urine RBC 1 /hpf (0 - 4) Urine Microscopic WBC 1 /HPF (0-5) Urine Squamous Epithelial Cells Few /hpf (<5) Urine Bacteria None seen /hpf (None Seen) Urine Glucose Normal mg/dL (Normal) Microbiology Microbiology Date/Time Source Procedure Growth Status 10/26/24 19:25 Nose MRSA Screen - Final Complete 10/24/24 10:06 Voided Urine Urine Culture - Final Complete Assessment/Plan Assessment/Plan -left lower lobe pneumonia -dementia -? Bradycardia -primary hypertension -asthma -dyslipidemia -thrombocytosis Plan: -continue IV antibiotic therapy with Levaquin -restart home medications for agitation -bronchodilators -antihypertensives: Decrease carvedilol to 3.125 twice a day given reported bradycardia -repeat labs and chest x-ray in a.m. Total time spent with patient discussing and formulating plan of care: 35 minutes. Plan discussed with: Patient My Orders Orders - CLAYTON SHELTON MD Procedure Category Date Status Time Docusate Sodium PHA 10/27/24 In Process Capsule (Colace 15:15 Electrocardigram EKG 10/27/24 Logged 18:45 Date of Service: Oct 27, 2024 Billing Provider: CLAYTON SHELTON MD Common Visit Codes: [id number] INP/OBS CARE(HIGH) CLAYTON SHELTON MD Oct 27, 2024 19:59
--- NOTE | 2024-10-27 20:15 | DVH ---
CT STROKE CTH INDICATION: EXAM DATE: 10/27/2024 07:49 PM COMPARISON: CT HEAD WITHOUT CONTRAST on DOS: 01/12/24 RADIATION DOSE: CTDIvol: 47 mGy, DLP: 900 mGy*cm PROCEDURE: CT scans of the head were obtained from the vertex to the skull base. Sagittal and coronal reconstructions were provided. All CT scans at this medical facility are performed using dose modulation techniques as appropriate t o a performed exam including the following: Automated exposure control was utilized; adjustment of th e MA and/or KV according to patient size; and use of iterative reconstruction technique. FINDINGS: Encephalomalacia in the left occipital lobe. There is sulcal and ventricular prominence. Th e brain otherwise shows normal morphology and dias-white matter differentiation, without intracranial hemorrhage, extra-axial fluid collection, mass effect or acute large vessel infarct. The ventricles are normal in size. The basal cisterns are patent. Prosthetic metallic hardware at the right TMJ crea zamzam beam hardening artifact. The skull and visible facial bones are otherwise intact. The paranasal s inuses, mastoid air cells and middle ear cavities are well-aerated. The soft tissues of the scalp are unremarkable. 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 No acute intracranial abnormality.
[2024-10-28] VITALS (13 sets, daily range): BP systolic 133–151; BP diastolic 78–96; PULSE 81–126; RESP 16–18; TEMP 97.6–98.5; O2SAT 96–100
--- NOTE | 2024-10-28 09:11 | ECG ---
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
--- NOTE | 2024-10-28 12:59 | DVHPN2 ---
Subjective Patient denies any symptoms. Reviewed: Care Plan, H&P, Labs, Previous Orders Changes from previous H/P or p: No Changes General: Per HPI Gastrointestinal: Diarrhea Genitourinary: Dysuria Objective Vitals Vital Signs Date Time Temp Pulse Resp B/P (MAP) Pulse Ox O2 Delivery O2 Flow Rate FiO2 10/28/24 12:29 97.8 101 16 150/91 (110) 98 97.8 10/28/24 10:29 Room Air 10/28/24 10:29 0 21 Intake/Output Intake and Output 10/28/24 07:00 Intake Total 750 ml Output Total 450 ml Balance 300 ml Intake Oral 650 ml IV Total 100 ml Output Urine Total 450 ml General Appearance: Alert, mild distress, Other (Encephalopathic) HEENT: Atraumatic, PERRLA Lungs: Clear to auscultation, Normal air movement Cardiovascular: Normal S1, Normal S2 Abdomen: Normal bowel sounds, Soft, No tenderness, No hepatospenomegaly, No masses Musculoskeletal: Normal sensory function, Normal motor function Extremities: No clubbing, No cyanosis, No edema, Normal pulses, No tenderness/swelling Skin: Dry, Intact Psych/Mental Status: Mental status NL, Mood NL Medications Current Medications Medications Dose Ordered Sig/Osvaldo Route Start Time Stop Time Status Last Admin Dose Admin Levofloxacin/ Dextrose 100 ml @ 100 mls/hr DAILY IV 10/25/24 10:00 10/28/24 10:05 100 MLS/HR Budesonide 0.5 mg BID NEB 10/24/24 22:00 10/28/24 10:22 0.5 MG Amlodipine Besylate 10 mg DAILY PO 10/25/24 10:00 10/27/24 10:34 10 MG Atorvastatin Calcium 40 mg HS PO 10/24/24 22:00 Latanoprost 1 drop QPM EACHEYE 10/24/24 18:00 Timolol Maleate 0.5 drop BID OP 10/24/24 22:00 10/28/24 10:06 0.5 DROP Levothyroxine Sodium 100 mcg QAM PO 10/25/24 07:00 10/26/24 06:12 100 MCG Levothyroxine Sodium 25 mcg QAM PO 10/25/24 07:00 10/26/24 06:11 25 MCG Alprazolam 0.5 mg BID PRN PO 10/25/24 22:00 10/27/24 15:35 0.5 MG Quetiapine Fumarate 25 mg QHSP PRN PO 10/25/24 12:15 Carvedilol 3.125 mg BID PO 10/25/24 22:00 10/27/24 10:34 3.125 MG Haloperidol Lactate 2.5 mg Q8HP PRN IV 10/25/24 15:15 10/26/24 00:41 2.5 MG Morphine Sulfate 1 mg Q4HPRN PRN IV 10/25/24 15:30 10/26/24 23:03 1 MG Acetaminophen/ Hydrocodone Bitart 1 tab Q6HPRN PRN PO 10/25/24 15:30 Acetaminophen 500 mg Q8HP PRN PO 10/25/24 15:30 Ondansetron HCl 4 mg Q6HP PRN IV 10/25/24 15:30 Albuterol 2.5 mg Q4HPRN PRN NEB 10/25/24 15:30 10/27/24 05:53 2.5 MG Ipratropium [place] 0.5 mg Q4HPRN PRN NEB 10/25/24 15:30 10/27/24 05:53 0.5 MG Hydralazine HCl 10 mg Q6HP PRN IV 10/26/24 00:30 10/27/24 18:22 10 MG Docusate Sodium 100 mg BID PO 10/27/24 15:15 Laboratory Results Laboratory Tests 10/27/24 10:27 Urinalysis Test 10/24/24 10:06 Urine Color Light-yellow (Yellow) Urine Clarity Clear (Clear) Urine pH 7.5 (5.0-9.0) Urine Specific [place] 1.012 (1.001-1.035) Urine Protein Negative (Negative) Urine Ketones Negative (Negative) Urine Blood Negative /uL (Negative) Urine Nitrite Negative (Negative) Urine Bilirubin Negative (Negative) Urine Urobilinogen Normal mg/dL (Negative) Urine Leukocyte Esterase Negative /uL (Negative) Urine RBC 1 /hpf (0 - 4) Urine Microscopic WBC 1 /HPF (0-5) Urine Squamous Epithelial Cells Few /hpf (<5) Urine Bacteria None seen /hpf (None Seen) Urine Glucose Normal mg/dL (Normal) Microbiology Microbiology Date/Time Source Procedure Growth Status 10/26/24 19:25 Nose MRSA Screen - Final Complete 10/24/24 10:06 Voided Urine Urine Culture - Final Complete Labs and/or images reviewed: Labs reviewed by me, Image(s) reviewed by me Assessment/Plan Assessment/Plan Impression: -left lower lobe pneumonia -dementia -? Bradycardia -primary hypertension -asthma -dyslipidemia -thrombocytosis Plan: -events: Patient was found to be somewhat lethargic. Questionably sleepy from Xanax, Haldol, morphine. -recheck checks x-ray, vitamin-D B12 PSH -bradycardia resolved. Cardiology recommendations reviewed. Noted sinus rhythm with frequent unifocal PVCs -restart home medications for agitation -bronchodilators -antihypertensives: Continue Coreg and amlodipine -gentle IV hydration. -start nutritional supplementation with meals -social service consultation for discharge plan Total time spent with patient discussing and formulating plan of care: 35 minutes. This medical document was created using an electronic medical record system with [employer] dictation system. Although this document has been carefully reviewed, there may still be some phonetic and typographical errors. These areas are purely typographical due to imperfections of the software programs, and do not reflect any compromise in the patient's medical care. Plan discussed with: Patient, Other (RN) My Orders Orders - CAIO ZARATE NP Procedure Category Date Status Time Chest Xray 1 View XY 10/28/24 Taken 10:33 Date of Service: Oct 28, 2024 Billing Provider: CAIO ZARATE NP Common Visit Codes: [id number] INP/OBS CARE(HIGH) CAIO ZARATE NP Oct 28, 2024 12:59
--- NOTE | 2024-10-28 13:33 | DVH ---
CHEST RADIOGRAPH Indication: pna Technique: Single frontal view of the chest was obtained Comparison: XY CHEST PORTABLE on DOS: 10/24/24, XY CHEST PORTABLE on DOS: 01/12/24 FINDINGS: Lines and Tubes: None Lungs: No focal consolidation. Pleura: No effusion. No pneumothorax. Cardiomediastinal contours: Unremarkable Bones: No acute osseous abnormality. IMPRESSION: No acute cardiopulmonary disease.
[2024-10-28] MEDS: SODIUM CHLORIDE 0.9% 1,000 ML IV ONE (14:03)
--- NOTE | 2024-10-28 16:25 | CONS ---
Pharmacy Clinical Information: Pt is on Levaquin and Seroquel and has QTc = 512. Consider changing antibiotic and using a different med for sleep. JU LEI PHARMACIST Oct 28, 2024 16:25
[2024-10-28] MEDS: Ensure Enlive Strawberry 8oz Bottle PO SCH (18:51)
[2024-10-28] MEDS: HYDROcodone-ACET 5/325MG TAB PO PRN (21:03)
[2024-10-29] VITALS (12 sets, daily range): BP systolic 153–166; BP diastolic 79–94; PULSE 52–88; RESP 16–18; TEMP 97.7–97.9; O2SAT 72–100
[2024-10-29] MEDS: D5W/SOD CHLO 0.9% 1,000 ML IV SCH (05:27)
[2024-10-29] MEDS: LEVOTHYROXINE SODIUM 100 MCG/5 ML INJ IV ONE (05:27)
[2024-10-29] MEDS ORDERED: CLINIMIX PER PHARMACY 0 ML IV SCH (11:30)
--- NOTE | 2024-10-29 11:33 | DVHPN2 ---
Subjective Patient denies any symptoms. Reviewed: Care Plan, H&P, Labs, Previous Orders Changes from previous H/P or p: No Changes General: Per HPI Gastrointestinal: Diarrhea Genitourinary: Dysuria Objective Vitals Vital Signs Date Time Temp Pulse Resp B/P (MAP) Pulse Ox O2 Delivery O2 Flow Rate FiO2 10/29/24 09:18 177/80 10/29/24 09:00 97.9 71 17 96 97.9 10/29/24 05:59 Room Air* 0 21 Intake/Output Intake and Output 10/29/24 07:00 Intake Total 250 ml Output Total 202 ml Balance 48 ml Intake Oral 150 ml IV Total 100 ml Output Urine Total 202 ml General Appearance: Alert, mild distress, Other (Encephalopathic) HEENT: Atraumatic, PERRLA Lungs: Clear to auscultation, Normal air movement Cardiovascular: Normal S1, Normal S2 Abdomen: Normal bowel sounds, Soft, No tenderness, No hepatospenomegaly, No masses Musculoskeletal: Normal sensory function, Normal motor function Extremities: No clubbing, No cyanosis, No edema, Normal pulses, No tenderness/swelling Skin: Dry, Intact Psych/Mental Status: Mental status NL, Mood NL Medications Current Medications Medications Dose Ordered Sig/Osvaldo Route Start Time Stop Time Status Last Admin Dose Admin Levofloxacin/ Dextrose 100 ml @ 100 mls/hr DAILY IV 10/25/24 10:00 10/29/24 09:18 100 MLS/HR Budesonide 0.5 mg BID NEB 10/24/24 22:00 10/29/24 05:59 0.5 MG Amlodipine Besylate 10 mg DAILY PO 10/25/24 10:00 10/27/24 10:34 10 MG Atorvastatin Calcium 40 mg HS PO 10/24/24 22:00 10/28/24 21:03 40 MG Latanoprost 1 drop QPM EACHEYE 10/24/24 18:00 10/28/24 18:21 1 DROP Timolol Maleate 0.5 drop BID OP 10/24/24 22:00 10/28/24 21:16 0.5 DROP Quetiapine Fumarate 25 mg QHSP PRN PO 10/25/24 12:15 Carvedilol 3.125 mg BID PO 10/25/24 22:00 10/28/24 21:02 3.125 MG Haloperidol Lactate 2.5 mg Q8HP PRN IV 10/25/24 15:15 10/26/24 00:41 2.5 MG Acetaminophen 500 mg Q8HP PRN PO 10/25/24 15:30 Ondansetron HCl 4 mg Q6HP PRN IV 10/25/24 15:30 Albuterol 2.5 mg Q4HPRN PRN NEB 10/25/24 15:30 10/29/24 05:59 2.5 MG Ipratropium [place] 0.5 mg Q4HPRN PRN NEB 10/25/24 15:30 10/29/24 05:59 0.5 MG Hydralazine HCl 10 mg Q6HP PRN IV 10/26/24 00:30 10/29/24 09:18 10 MG Docusate Sodium 100 mg BID PO 10/27/24 15:15 Enteral Nutritional Formula 240 ml TIDWM PO 10/28/24 18:00 10/29/24 08:42 240 ML Acetaminophen/ Hydrocodone Bitart 1 tab Q8HPRN PRN PO 10/28/24 20:45 10/28/24 21:03 1 TAB Dextrose/Sodium Chloride 1,000 ml @ 75 mls/hr [id number] IV 10/29/24 04:00 10/29/24 05:27 75 MLS/HR Levothyroxine Sodium 100 mcg DAILY IV 10/30/24 10:00 UNV Laboratory Results Laboratory Tests 10/27/24 10:27 HgA1c, TSH Test 10/28/24 16:56 Thyroid Stimulating Hormone (TSH) 63.25 uIU/mL (0.55-4.78) H Urinalysis Test 10/24/24 10:06 Urine Color Light-yellow (Yellow) Urine Clarity Clear (Clear) Urine pH 7.5 (5.0-9.0) Urine Specific [place] 1.012 (1.001-1.035) Urine Protein Negative (Negative) Urine Ketones Negative (Negative) Urine Blood Negative /uL (Negative) Urine Nitrite Negative (Negative) Urine Bilirubin Negative (Negative) Urine Urobilinogen Normal mg/dL (Negative) Urine Leukocyte Esterase Negative /uL (Negative) Urine RBC 1 /hpf (0 - 4) Urine Microscopic WBC 1 /HPF (0-5) Urine Squamous Epithelial Cells Few /hpf (<5) Urine Bacteria None seen /hpf (None Seen) Urine Glucose Normal mg/dL (Normal) Microbiology Microbiology Date/Time Source Procedure Growth Status 10/26/24 19:25 Nose MRSA Screen - Final Complete 10/24/24 10:06 Voided Urine Urine Culture - Final Complete Labs and/or images reviewed: Labs reviewed by me, Image(s) reviewed by me Assessment/Plan Assessment/Plan Impression: -left lower lobe pneumonia -dementia -? Bradycardia -primary hypertension -asthma -dyslipidemia -thrombocytosis -severe hypothyroidism Plan: -events: Continues to have poor oral intake. Start Megace, ensure t.i.d. with meals, Clinimix. -levothyroxine 100 IV daily -recheck checks x-ray, vitamin-D B12 PSH -bradycardia resolved. Cardiology recommendations reviewed. Noted sinus rhythm with frequent unifocal PVCs -restart home medications for agitation -bronchodilators -antihypertensives: Continue Coreg and amlodipine -gentle IV hydration. -social service consultation for discharge plan Total time spent with patient discussing and formulating plan of care: 35 minutes. This medical document was created using an electronic medical record system with [employer] dictation system. Although this document has been carefully reviewed, there may still be some phonetic and typographical errors. These areas are purely typographical due to imperfections of the software programs, and do not reflect any compromise in the patient's medical care. Plan discussed with: Patient, Other (RN) My Orders Orders - CAIO ZARATE NP Procedure Category Date Status Time Vitamin B1 (Thiamine) LAB 10/28/24 In Process 12:51 Vitamin D 25-Hydroxy LAB 10/28/24 In Process D2 + D3 12:51 Nutritional PHA 10/28/24 In Process Supplements (Ensure 18:00 Initiate Vte RAFFAELE 10/28/24 In Process Prophylaxis 20:40 Levothyroxine PHA 10/30/24 Logged Injection (Synthroid 10:00 Basic Metabolic Panel LAB 10/30/24 Verified 04:00 Thyroid Stimulating LAB 10/30/24 Verified Hormone 04:00 Clinimix Per Pharmacy PHA 10/29/24 Transmitted 11:30 Megestrol Oral PHA 10/30/24 Transmitted Suspension (Megace 10:00 Nutritional PHA 10/29/24 Transmitted Supplements (Ensure 12:00 Date of Service: Oct 29, 2024 Billing Provider: CAIO ZARATE NP Common Visit Codes: [id number] INP/OBS CARE(HIGH) CAIO ZARATE NP Oct 29, 2024 11:33
[2024-10-29] MEDS: Ensure Enlive Strawberry 8oz Bottle PO SCH (12:00)
[2024-10-29] MEDS: AMINO ACID INFUSION IN D5W 1,000 ML IV SCH (22:07)
[2024-10-30] VITALS (12 sets, daily range): BP systolic 135–163; BP diastolic 69–97; PULSE 77–106; RESP 16–20; TEMP 97.7–99; O2SAT 96–98
[2024-10-30] MEDS ORDERED: DEXTROSE (50%) 50ML SYRG IV SCH
[2024-10-30] MEDS: InsuLIN REG 1unit/0.01ml Soln (100units/ml) SC SCH
[2024-10-30] MEDS: ACCU-CHEK COMFORT CURVE STRIP VI SCH (00:05)
[2024-10-30] MEDS: HYDROcodone-ACET 7.5/325MG TAB PO ONE (02:28)
[2024-10-30] MEDS ORDERED: LEVOTHYROXINE SODIUM 100 MCG/5 ML INJ IV SCH (10:00)
[2024-10-30] MEDS: LEVOTHYROXINE SODIUM 100 MCG/5 ML INJ IV SCH (10:23)
--- NOTE | 2024-10-30 11:32 | DVHPN2 ---
Subjective Patient denies any symptoms. Reviewed: Care Plan, H&P, Labs, Previous Orders Changes from previous H/P or p: No Changes General: Per HPI Gastrointestinal: Diarrhea Genitourinary: Dysuria Objective Vitals Vital Signs Date Time Temp Pulse Resp B/P (MAP) Pulse Ox O2 Delivery O2 Flow Rate FiO2 10/30/24 10:39 150/80 10/30/24 10:35 80 10/30/24 09:13 97.7 16 98 97.7 10/30/24 06:21 Room Air 0.0 10/30/24 06:21 21 Intake/Output Intake and Output 10/30/24 07:00 Intake Total 2260 ml Balance 2260 ml Intake Oral 2160 ml IV Total 100 ml # Voids 7 General Appearance: Alert, mild distress, Other (Encephalopathic) HEENT: Atraumatic, PERRLA Lungs: Clear to auscultation, Normal air movement Cardiovascular: Normal S1, Normal S2 Abdomen: Normal bowel sounds, Soft, No tenderness, No hepatospenomegaly, No masses Musculoskeletal: Normal sensory function, Normal motor function Extremities: No clubbing, No cyanosis, No edema, Normal pulses, No tenderness/swelling Skin: Dry, Intact Psych/Mental Status: Mental status NL, Mood NL Medications Current Medications Medications Dose Ordered Sig/Osvaldo Route Start Time Stop Time Status Last Admin Dose Admin Budesonide 0.5 mg BID NEB 10/24/24 22:00 10/30/24 06:21 0.5 MG Amlodipine Besylate 10 mg DAILY PO 10/25/24 10:00 10/30/24 10:39 10 MG Atorvastatin Calcium 40 mg HS PO 10/24/24 22:00 10/29/24 22:06 40 MG Latanoprost 1 drop QPM EACHEYE 10/24/24 18:00 10/28/24 18:21 1 DROP Timolol Maleate 0.5 drop BID OP 10/24/24 22:00 10/30/24 10:23 0.5 DROP Quetiapine Fumarate 25 mg QHSP PRN PO 10/25/24 12:15 Carvedilol 3.125 mg BID PO 10/25/24 22:00 10/30/24 10:35 3.125 MG Haloperidol Lactate 2.5 mg Q8HP PRN IV 10/25/24 15:15 10/26/24 00:41 2.5 MG Acetaminophen 500 mg Q8HP PRN PO 10/25/24 15:30 Ondansetron HCl 4 mg Q6HP PRN IV 10/25/24 15:30 Albuterol 2.5 mg Q4HPRN PRN NEB 10/25/24 15:30 10/29/24 19:10 2.5 MG Ipratropium [place] 0.5 mg Q4HPRN PRN NEB 10/25/24 15:30 10/29/24 19:10 0.5 MG Hydralazine HCl 10 mg Q6HP PRN IV 10/26/24 00:30 10/30/24 00:34 10 MG Docusate Sodium 100 mg BID PO 10/27/24 15:15 10/30/24 10:23 100 MG Enteral Nutritional Formula 240 ml TIDWM PO 10/28/24 18:00 10/30/24 08:00 240 ML Acetaminophen/ Hydrocodone Bitart 1 tab Q8HPRN PRN PO 10/28/24 20:45 10/28/24 21:03 1 TAB Dextrose/Sodium Chloride 1,000 ml @ 75 mls/hr [id number] IV 10/29/24 04:00 10/29/24 05:27 75 MLS/HR Levothyroxine Sodium 100 mcg DAILY IV 10/30/24 10:00 10/30/24 10:23 100 MCG Amino Acids 0 ml @ 0 mls/hr PER PHARMACY IV 10/29/24 11:30 Megestrol Acetate 400 mg DAILY PO 10/30/24 10:00 Enteral Nutritional Formula 240 ml TIDWM PO 10/29/24 12:00 Amino Acids 1,000 ml @ 41 mls/hr DAILY@2200 IV 10/29/24 22:00 10/29/24 22:07 41 MLS/HR Diagnostic Test (Pha) 1 strip Q6HR 10/30/24 00:00 10/30/24 06:01 1 STRIP Insulin Human Regular FOLLOW SLIDING SCALE Q6HR SC 10/30/24 00:00 10/30/24 06:08 2 UNITS Dextrose 50 ml UD IV 10/30/24 00:00 Laboratory Results Laboratory Tests 10/27/24 10:27 Urinalysis Test 10/24/24 10:06 Urine Color Light-yellow (Yellow) Urine Clarity Clear (Clear) Urine pH 7.5 (5.0-9.0) Urine Specific [place] 1.012 (1.001-1.035) Urine Protein Negative (Negative) Urine Ketones Negative (Negative) Urine Blood Negative /uL (Negative) Urine Nitrite Negative (Negative) Urine Bilirubin Negative (Negative) Urine Urobilinogen Normal mg/dL (Negative) Urine Leukocyte Esterase Negative /uL (Negative) Urine RBC 1 /hpf (0 - 4) Urine Microscopic WBC 1 /HPF (0-5) Urine Squamous Epithelial Cells Few /hpf (<5) Urine Bacteria None seen /hpf (None Seen) Urine Glucose Normal mg/dL (Normal) Microbiology Microbiology Date/Time Source Procedure Growth Status 10/26/24 19:25 Nose MRSA Screen - Final Complete 10/24/24 10:06 Voided Urine Urine Culture - Final Complete Labs and/or images reviewed: Labs reviewed by me, Image(s) reviewed by me Assessment/Plan Assessment/Plan Impression: -left lower lobe pneumonia -dementia -? Bradycardia -primary hypertension -asthma -dyslipidemia -thrombocytosis -severe hypothyroidism Plan: -events: Patient more awake today. Patient able to hold a conversation with noted confusion. Still has poor oral intake. -levothyroxine 100 IV daily -restart home medications for agitation -bronchodilators -antihypertensives: Continue Coreg and amlodipine -continue Clinimix -social service consultation for discharge plan Total time spent with patient discussing and formulating plan of care: 35 minutes. This medical document was created using an electronic medical record system with From[employer] dictation system. Although this document has been carefully reviewed, there may still be some phonetic and typographical errors. These areas are purely typographical due to imperfections of the software programs, and do not reflect any compromise in the patient's medical care. Plan discussed with: Patient, Other (RN) My Orders Orders - CAIO ZARATE HOSPITAL ATTENDANT Procedure Category Date Status Time Transfer Orders XFER 10/29/24 Transmitted 11:52 Comprehensive LAB 10/30/24 Logged Metabolic Panel 04:00 Magnesium LAB 10/30/24 Logged 04:00 Phosphorus LAB 10/30/24 Logged 04:00 [facility]imix Per Pharmacy [facility] 10/29/24 In Process 22:00 Amino Acid Infusion PHA 10/29/24 In Process In D5w (Clinimix 4.2 22:00 Glucose Blood PHA 10/30/24 In Process (Accu-Chek Comfort 00:00 Insulin R (Human) PHA 10/30/24 In Process (Insulin R) 00:00 Dextrose 50% Syringe PHA 10/30/24 In Process 00:00 Date of Service: Oct 30, 2024 Billing Provider: CAIO ZARATE NP Common Visit Codes: [id number] INP/OBS CARE(HIGH) CAIO ZARATE NP Oct 30, 2024 11:32
[2024-10-30] MEDS: MEGESTROL ACET 400MG/10ML ORAL SUSP PO SCH (11:35)
[2024-10-31] VITALS (9 sets, daily range): BP systolic 132–145; BP diastolic 76–106; PULSE 75–94; RESP 12–18; TEMP 97.1–98.5; O2SAT 95–98
--- NOTE | 2024-10-31 11:01 | DVHPN2 ---
Subjective Patient denies any symptoms. Reviewed: Care Plan, H&P, Labs, Previous Orders Changes from previous H/P or p: No Changes General: Per HPI Gastrointestinal: Diarrhea Genitourinary: Dysuria Objective Vitals Vital Signs Date Time Temp Pulse Resp B/P (MAP) Pulse Ox O2 Delivery O2 Flow Rate FiO2 10/31/24 10:31 142/76 10/31/24 10:29 76 10/31/24 08:44 98.1 18 95 98.1 10/31/24 05:56 Room Air 10/31/24 05:56 0 21 Intake/Output Intake and Output 10/31/24 07:00 Intake Total 750 ml Balance 750 ml Intake Oral 750 ml # Voids 5 General Appearance: Alert, Cooperative, No acute distress HEENT: Atraumatic, PERRLA Lungs: Clear to auscultation, Normal air movement Cardiovascular: Normal S1, Normal S2 Abdomen: Normal bowel sounds, Soft, No tenderness, No hepatospenomegaly, No masses Musculoskeletal: Normal sensory function, Normal motor function Extremities: No clubbing, No cyanosis, No edema, Normal pulses, No tenderness/swelling Neuro: Cranial nerves 3-12 NL Skin: Dry, Intact Psych/Mental Status: Mental status NL, Mood NL Medications Current Medications Medications Dose Ordered Sig/Osvaldo Route Start Time Stop Time Status Last Admin Dose Admin Budesonide 0.5 mg BID NEB 10/24/24 22:00 10/31/24 05:56 0.5 MG Amlodipine Besylate 10 mg DAILY PO 10/25/24 10:00 10/31/24 10:31 10 MG Atorvastatin Calcium 40 mg HS PO 10/24/24 22:00 10/29/24 22:06 40 MG Latanoprost 1 drop QPM EACHEYE 10/24/24 18:00 10/28/24 18:21 1 DROP Timolol Maleate 0.5 drop BID OP 10/24/24 22:00 10/31/24 10:30 0.5 DROP Quetiapine Fumarate 25 mg QHSP PRN PO 10/25/24 12:15 Carvedilol 3.125 mg BID PO 10/25/24 22:00 10/31/24 10:29 3.125 MG Haloperidol Lactate 2.5 mg Q8HP PRN IV 10/25/24 15:15 10/26/24 00:41 2.5 MG Acetaminophen 500 mg Q8HP PRN PO 10/25/24 15:30 Ondansetron HCl 4 mg Q6HP PRN IV 10/25/24 15:30 Albuterol 2.5 mg Q4HPRN PRN NEB 10/25/24 15:30 10/29/24 19:10 2.5 MG Ipratropium [place] 0.5 mg Q4HPRN PRN NEB 10/25/24 15:30 10/29/24 19:10 0.5 MG Hydralazine HCl 10 mg Q6HP PRN IV 10/26/24 00:30 10/30/24 00:34 10 MG Docusate Sodium 100 mg BID PO 10/27/24 15:15 10/31/24 10:00 100 MG Enteral Nutritional Formula 240 ml TIDWM PO 10/28/24 18:00 10/31/24 08:00 240 ML Acetaminophen/ Hydrocodone Bitart 1 tab Q8HPRN PRN PO 10/28/24 20:45 10/28/24 21:03 1 TAB Amino Acids 0 ml @ 0 mls/hr PER PHARMACY IV 10/29/24 11:30 Megestrol Acetate 400 mg DAILY PO 10/30/24 10:00 10/31/24 10:31 400 MG Enteral Nutritional Formula 240 ml TIDWM PO 10/29/24 12:00 10/31/24 10:30 240 ML Amino Acids 1,000 ml @ 41 mls/hr DAILY@2200 IV 10/29/24 22:00 10/30/24 22:13 41 MLS/HR Diagnostic Test (Pha) 1 strip Q6HR 10/30/24 00:00 10/31/24 05:55 1 STRIP Insulin Human Regular FOLLOW SLIDING SCALE Q6HR SC 10/30/24 00:00 10/31/24 06:17 2 UNITS Dextrose 50 ml UD IV 10/30/24 00:00 Laboratory Results Laboratory Tests 10/27/24 10:27 HgA1c, TSH Test 10/30/24 15:22 Thyroid Stimulating Hormone (TSH) 63.53 uIU/mL (0.55-4.78) H Urinalysis Test 10/24/24 10:06 Urine Color Light-yellow (Yellow) Urine Clarity Clear (Clear) Urine pH 7.5 (5.0-9.0) Urine Specific [place] 1.012 (1.001-1.035) Urine Protein Negative (Negative) Urine Ketones Negative (Negative) Urine Blood Negative /uL (Negative) Urine Nitrite Negative (Negative) Urine Bilirubin Negative (Negative) Urine Urobilinogen Normal mg/dL (Negative) Urine Leukocyte Esterase Negative /uL (Negative) Urine RBC 1 /hpf (0 - 4) Urine Microscopic WBC 1 /HPF (0-5) Urine Squamous Epithelial Cells Few /hpf (<5) Urine Bacteria None seen /hpf (None Seen) Urine Glucose Normal mg/dL (Normal) Microbiology Microbiology Date/Time Source Procedure Growth Status 10/26/24 19:25 Nose MRSA Screen - Final Complete 10/24/24 10:06 Voided Urine Urine Culture - Final Complete Labs and/or images reviewed: Labs reviewed by me, Image(s) reviewed by me Assessment/Plan Assessment/Plan Impression: -left lower lobe pneumonia -dementia -? Bradycardia -primary hypertension -asthma -dyslipidemia -thrombocytosis -severe hypothyroidism Plan: -events: Continues to have poor oral intake. More alert today. Continues to have severe hypothyroidism. -patient was tolerating p.o.. Increase levothyroxine to 200 mcg daily -restart home medications for agitation -bronchodilators -antihypertensives: Continue Coreg and amlodipine -continue Clinimix -social service consultation for discharge plan Total time spent with patient discussing and formulating plan of care: 35 minutes. This medical document was created using an electronic medical record system with De[employer]or dictation system. Although this document has been carefully reviewed, there may still be some phonetic and typographical errors. These areas are purely typographical due to imperfections of the software programs, and do not reflect any compromise in the patient's medical care. Plan discussed with: Patient, Other (RN) My Orders Orders - CAIO ZARATE NP Procedure Category Date Status Time Phosphorus LAB 10/30/24 Logged 14:52 Magnesium LAB 10/30/24 Logged 14:52 Comprehensive LAB 10/30/24 Logged Metabolic Panel 14:52 [facility] Per Pharmacy [facility] 10/30/24 In Process 22:00 Thyroid Stimulating LAB 10/31/24 Logged Hormone 09:36 Pt Request For Service PT 10/31/24 Verified 10:59 Date of Service: Oct 31, 2024 Billing Provider: SALBINO,KEARNEY WATCH AND CLOCK REPAIR CLERK Common Visit Codes: [id number] INP/OBS CARE(HIGH) CAIO ZARATE WATCH AND CLOCK REPAIR CLERK Oct 31, 2024 11:01
[2024-10-31] MEDS: AMINO ACID INFUSION IN D10W 2,000 ML IV SCH (22:17)
[2024-11-01] VITALS (9 sets, daily range): BP systolic 108–156; BP diastolic 57–93; PULSE 63–92; RESP 14–20; TEMP 97.1–98.5; O2SAT 95–99
--- NOTE | 2024-11-01 08:39 | DVHPN2 ---
Subjective Patient denies any symptoms. Reviewed: Care Plan, H&P, Labs, Previous Orders Changes from previous H/P or p: No Changes General: Per HPI Gastrointestinal: Diarrhea Genitourinary: Dysuria Objective Vitals Vital Signs Date Time Temp Pulse Resp B/P (MAP) Pulse Ox O2 Delivery O2 Flow Rate FiO2 11/01/24 05:00 97.4 82 14 156/93 (114) 98 97.4 10/31/24 20:00 Room Air* 0 21 Intake/Output Intake and Output 11/01/24 07:00 Intake Total 601 ml Output Total 400 ml Balance 201 ml Intake Oral 150 ml IV Total 451 ml Output Urine Total 400 ml # Voids 1 General Appearance: Alert, Cooperative, No acute distress HEENT: Atraumatic, PERRLA Lungs: Clear to auscultation, Normal air movement Cardiovascular: Normal S1, Normal S2 Abdomen: Normal bowel sounds, Soft, No tenderness, No hepatospenomegaly, No masses Musculoskeletal: Normal sensory function, Normal motor function Extremities: No clubbing, No cyanosis, No edema, Normal pulses, No tenderness/swelling Neuro: Cranial nerves 3-12 NL Skin: Dry, Intact Psych/Mental Status: Mental status NL, Mood NL Medications Current Medications Medications Dose Ordered Sig/Osvaldo Route Start Time Stop Time Status Last Admin Dose Admin Budesonide 0.5 mg BID NEB 10/24/24 22:00 10/31/24 22:41 0.5 MG Amlodipine Besylate 10 mg DAILY PO 10/25/24 10:00 10/31/24 10:31 10 MG Atorvastatin Calcium 40 mg HS PO 10/24/24 22:00 10/29/24 22:06 40 MG Latanoprost 1 drop QPM EACHEYE 10/24/24 18:00 10/28/24 18:21 1 DROP Timolol Maleate 0.5 drop BID OP 10/24/24 22:00 10/31/24 10:30 0.5 DROP Quetiapine Fumarate 25 mg QHSP PRN PO 10/25/24 12:15 Carvedilol 3.125 mg BID PO 10/25/24 22:00 10/31/24 10:29 3.125 MG Haloperidol Lactate 2.5 mg Q8HP PRN IV 10/25/24 15:15 10/26/24 00:41 2.5 MG Acetaminophen 500 mg Q8HP PRN PO 10/25/24 15:30 Ondansetron HCl 4 mg Q6HP PRN IV 10/25/24 15:30 Albuterol 2.5 mg Q4HPRN PRN NEB 10/25/24 15:30 10/29/24 19:10 2.5 MG Ipratropium [place] 0.5 mg Q4HPRN PRN NEB 10/25/24 15:30 10/29/24 19:10 0.5 MG Hydralazine HCl 10 mg Q6HP PRN IV 10/26/24 00:30 10/31/24 11:56 10 MG Docusate Sodium 100 mg BID PO 10/27/24 15:15 10/31/24 10:00 100 MG Enteral Nutritional Formula 240 ml TIDWM PO 10/28/24 18:00 10/31/24 18:06 240 ML Acetaminophen/ Hydrocodone Bitart 1 tab Q8HPRN PRN PO 10/28/24 20:45 10/28/24 21:03 1 TAB Amino Acids 0 ml @ 0 mls/hr PER PHARMACY IV 10/29/24 11:30 Megestrol Acetate 400 mg DAILY PO 10/30/24 10:00 10/31/24 10:31 400 MG Enteral Nutritional Formula 240 ml TIDWM PO 10/29/24 12:00 10/31/24 18:06 240 ML Diagnostic Test (Pha) 1 strip Q6HR 10/30/24 00:00 11/01/24 05:54 1 STRIP Insulin Human Regular FOLLOW SLIDING SCALE Q6HR SC 10/30/24 00:00 10/31/24 06:17 2 UNITS Dextrose 50 ml UD IV 10/30/24 00:00 Amino Acids/ Electrolytes/ Dextrose 2,000 ml @ 41 mls/hr DAILY@2200 IV 10/31/24 22:00 10/31/24 22:17 41 MLS/HR Laboratory Results Laboratory Tests 10/27/24 10:27 Urinalysis Test 10/24/24 10:06 Urine Color Light-yellow (Yellow) Urine Clarity Clear (Clear) Urine pH 7.5 (5.0-9.0) Urine Specific [place] 1.012 (1.001-1.035) Urine Protein Negative (Negative) Urine Ketones Negative (Negative) Urine Blood Negative /uL (Negative) Urine Nitrite Negative (Negative) Urine Bilirubin Negative (Negative) Urine Urobilinogen Normal mg/dL (Negative) Urine Leukocyte Esterase Negative /uL (Negative) Urine RBC 1 /hpf (0 - 4) Urine Microscopic WBC 1 /HPF (0-5) Urine Squamous Epithelial Cells Few /hpf (<5) Urine Bacteria None seen /hpf (None Seen) Urine Glucose Normal mg/dL (Normal) Microbiology Microbiology Date/Time Source Procedure Growth Status 10/26/24 19:25 Nose MRSA Screen - Final Complete 10/24/24 10:06 Voided Urine Urine Culture - Final Complete Labs and/or images reviewed: Labs reviewed by me, Image(s) reviewed by me Assessment/Plan Assessment/Plan Impression: -left lower lobe pneumonia -dementia -? Bradycardia -primary hypertension -asthma -dyslipidemia -thrombocytosis -severe hypothyroidism Plan: -events: Continues to have poor oral intake. More alert today. Continues to have severe hypothyroidism. PT consultation still pending. -Increase levothyroxine to 200 mcg daily -restart home medications for agitation -bronchodilators -antihypertensives: Continue Coreg and amlodipine -continue Clinimix -social service consultation for discharge plan Total time spent with patient discussing and formulating plan of care: 35 minutes. This medical document was created using an electronic medical record system with [employer] dictation system. Although this document has been carefully reviewed, there may still be some phonetic and typographical errors. These areas are purely typographical due to imperfections of the software programs, and do not reflect any compromise in the patient's medical care. Plan discussed with: Patient, Other (RN) My Orders Orders - CAIO ZARATE CUPROUS CHLORIDE OPERATOR Procedure Category Date Status Time Pt Request For Service PT 10/31/24 Logged 10:59 Comprehensive LAB 11/01/24 Logged Metabolic Panel 04:00 Phosphorus LAB 11/01/24 Logged 04:00 Magnesium LAB 11/01/24 Logged 04:00 [facility] Per Pharmacy [facility] 10/31/24 In Process 22:00 Amino Acid Infusion PHA 10/31/24 In Process In D10w ([facility] 4. 22:00 * Network Operations Analyst CONS 11/01/24 Transmitted Consult Levothyroxine Tablet PHA 11/01/24 Verified (Synthroid Tablet) 08:45 Levothyroxine Tablet PHA 11/02/24 Verified (Synthroid Tablet) 06:00 Thyroid Stimulating LAB 11/01/24 Verified Hormone 08:37 Date of Service: Nov 01, 2024 Billing Provider: CAIO ZARATE NP Common Visit Codes: [id number] INP/OBS CARE(HIGH) CAIO ZARATE NP Nov 01, 2024 08:39
[2024-11-01] MEDS: LEVOTHYROXINE SODIUM 100 MCG TAB PO ONE (09:31)
[2024-11-01] MEDS: KETOROLAC TROMETH 30 MG/ML 1ML VIAL IV ONE (14:53)
[2024-11-01 15:59] LABS: Anion Gap 8 (5-15)
[2024-11-01 16:04] LABS: BUN/Creatinine Ratio 20.3 (10.0-20.0)
[2024-11-01 16:07] LABS: Blood Urea Nitrogen 15 mg/dL (9-23); Carbon Dioxide 23 mmol/L (20-31); Chloride 105 mmol/L (98-107); Glucose 129 mg/dL (74-106); Potassium 3.3 mmol/L (3.5-5.1); Sodium 136 mmol/L (136-145)
[2024-11-01 16:08] LABS: Alanine Aminotransferase 16 U/L (7-40); Albumin 3.6 g/dL (3.2-4.8); Alkaline Phosphatase 72 U/L (46-116); Aspartate Aminotransferase 21 U/L (13-40); Bilirubin, Total 0.6 mg/dL (0.2-1.0); Magnesium 1.8 mg/dL (1.6-2.6); Total Protein 6.3 g/dL (5.7-8.2)
[2024-11-01] MEDS: ACETAMINOPHEN 500 MG TAB or CAP PO PRN (17:13)
[2024-11-01] MEDS: POTASSIUM EFFERVESENT TAB 25 MEQ PO ONE (17:13)
[2024-11-01] MEDS: AMINO ACID INFUSION IN D10W 2,000 ML IV SCH (22:00)
[2024-11-02] VITALS (8 sets, daily range): BP systolic 119–143; BP diastolic 60–89; PULSE 74–104; RESP 16–20; TEMP 96.1–97.8; O2SAT 96–99
[2024-11-02] MEDS: LEVOTHYROXINE SODIUM 100 MCG TAB PO SCH (06:11)
[2024-11-02] MEDS: AMINO ACID INFUSION IN D5W 1,000 ML IV SCH (22:01)
[2024-11-03] VITALS (10 sets, daily range): BP systolic 106–129; BP diastolic 58–96; PULSE 74–99; RESP 16–20; TEMP 97.5–99; O2SAT 94–100
[2024-11-03] MEDS: HALOPERIDOL LACTATE 5 MG/ML INJ VIAL IM ONE (01:39)
--- NOTE | 2024-11-03 11:20 | DVHPN2 ---
Subjective Patient denies any symptoms. Reviewed: Care Plan, H&P, Labs, Previous Orders Changes from previous H/P or p: No Changes General: Per HPI Gastrointestinal: Diarrhea Genitourinary: Dysuria Objective Vitals Vital Signs Date Time Temp Pulse Resp B/P (MAP) Pulse Ox O2 Delivery O2 Flow Rate FiO2 11/03/24 09:22 99.0 79 18 106/63 (77) 98 99.0 11/03/24 07:00 Room Air 11/03/24 07:00 0 21 Intake/Output Intake and Output 11/03/24 07:00 Intake Total 350 ml Balance 350 ml Intake Oral 350 ml # Voids 1 # Bowel Movements 1 General Appearance: Alert, Cooperative, No acute distress HEENT: Atraumatic, PERRLA Lungs: Clear to auscultation, Normal air movement Cardiovascular: Normal S1, Normal S2 Abdomen: Normal bowel sounds, Soft, No tenderness, No hepatospenomegaly, No masses Musculoskeletal: Normal sensory function, Normal motor function Extremities: No clubbing, No cyanosis, No edema, Normal pulses, No tenderness/swelling Neuro: Cranial nerves 3-12 NL Skin: Dry, Intact Psych/Mental Status: Mental status NL, Mood NL Medications Current Medications Medications Dose Ordered Sig/Osvaldo Route Start Time Stop Time Status Last Admin Dose Admin Budesonide 0.5 mg BID NEB 10/24/24 22:00 11/03/24 07:00 0.5 MG Amlodipine Besylate 10 mg DAILY PO 10/25/24 10:00 11/03/24 09:04 10 MG Atorvastatin Calcium 40 mg HS PO 10/24/24 22:00 11/01/24 22:02 40 MG Latanoprost 1 drop QPM EACHEYE 10/24/24 18:00 11/02/24 18:26 1 DROP Timolol Maleate 0.5 drop BID OP 10/24/24 22:00 11/03/24 09:06 0.5 DROP Quetiapine Fumarate 25 mg QHSP PRN PO 10/25/24 12:15 Carvedilol 3.125 mg BID PO 10/25/24 22:00 11/03/24 09:06 3.125 MG Haloperidol Lactate 2.5 mg Q8HP PRN IV 10/25/24 15:15 10/26/24 00:41 2.5 MG Acetaminophen 500 mg Q8HP PRN PO 10/25/24 15:30 11/01/24 17:13 500 MG Ondansetron HCl 4 mg Q6HP PRN IV 10/25/24 15:30 Albuterol 2.5 mg Q4HPRN PRN NEB 10/25/24 15:30 10/29/24 19:10 2.5 MG Ipratropium [place] 0.5 mg Q4HPRN PRN NEB 10/25/24 15:30 10/29/24 19:10 0.5 MG Hydralazine HCl 10 mg Q6HP PRN IV 10/26/24 00:30 10/31/24 11:56 10 MG Docusate Sodium 100 mg BID PO 10/27/24 15:15 11/03/24 09:05 100 MG Acetaminophen/ Hydrocodone Bitart 1 tab Q8HPRN PRN PO 10/28/24 20:45 11/01/24 18:40 1 TAB Amino Acids 0 ml @ 0 mls/hr PER PHARMACY IV 10/29/24 11:30 Megestrol Acetate 400 mg DAILY PO 10/30/24 10:00 11/03/24 09:07 400 MG Enteral Nutritional Formula 240 ml TIDWM PO 10/29/24 12:00 11/03/24 08:00 240 ML Diagnostic Test (Pha) 1 strip Q6HR 10/30/24 00:00 11/03/24 06:00 1 STRIP Insulin Human Regular FOLLOW SLIDING SCALE Q6HR SC 10/30/24 00:00 11/02/24 00:23 2 UNITS Dextrose 50 ml UD IV 10/30/24 00:00 Levothyroxine Sodium 200 mcg QAM@0600 PO 11/02/24 06:00 11/03/24 06:00 200 MCG Amino Acids/ Electrolytes/ Dextrose 2,000 ml @ 41 mls/hr DAILY@2200 IV 11/03/24 22:00 Amino Acids 1,000 ml @ 41 mls/hr DAILY@2200 IV 11/02/24 22:00 11/03/24 21:59 11/02/24 22:01 41 MLS/HR Laboratory Results Laboratory Tests 10/27/24 10:27 11/01/24 15:24 Urinalysis Test 10/24/24 10:06 Urine Color Light-yellow (Yellow) Urine Clarity Clear (Clear) Urine pH 7.5 (5.0-9.0) Urine Specific [place] 1.012 (1.001-1.035) Urine Protein Negative (Negative) Urine Ketones Negative (Negative) Urine Blood Negative /uL (Negative) Urine Nitrite Negative (Negative) Urine Bilirubin Negative (Negative) Urine Urobilinogen Normal mg/dL (Negative) Urine Leukocyte Esterase Negative /uL (Negative) Urine RBC 1 /hpf (0 - 4) Urine Microscopic WBC 1 /HPF (0-5) Urine Squamous Epithelial Cells Few /hpf (<5) Urine Bacteria None seen /hpf (None Seen) Urine Glucose Normal mg/dL (Normal) Microbiology Microbiology Date/Time Source Procedure Growth Status 10/26/24 19:25 Nose MRSA Screen - Final Complete 10/24/24 10:06 Voided Urine Urine Culture - Final Complete Labs and/or images reviewed: Labs reviewed by me, Image(s) reviewed by me Assessment/Plan Assessment/Plan Impression: -left lower lobe pneumonia -dementia -? Bradycardia -primary hypertension -asthma -dyslipidemia -thrombocytosis -severe hypothyroidism Plan: -events: Patient more lucid today. Reports of patient having confusion last night, pulling out IV. Patient was administered IV Haldol. Labs still pending today. We will speak with family once lab work has been obtained for discharge planning. -Increase levothyroxine to 200 mcg daily -restart home medications for agitation -bronchodilators -antihypertensives: Continue Coreg and amlodipine -continue Clinimix -social service consultation for discharge plan Total time spent with patient discussing and formulating plan of care: 35 minutes. This medical document was created using an electronic medical record system with [employer]apt dictation system. Although this document has been carefully reviewed, there may still be some phonetic and typographical errors. These areas are purely typographical due to imperfections of the software programs, and do not reflect any compromise in the patient's medical care. Plan discussed with: Patient, Other (RN) My Orders Orders - CAIO ZARATE AREA COUNSELOR Procedure Category Date Status Time Comprehensive LAB 11/03/24 Logged Metabolic Panel 04:00 Magnesium LAB 11/03/24 Logged 04:00 Phosphorus LAB 11/03/24 Logged 04:00 [facility] Per Pharmacy [facility] 11/02/24 In Process 22:00 Amino Acid Infusion PHA 11/03/24 In Process In D10w ([facility] 4. 22:00 Amino Acid Infusion PHA 11/02/24 In Process In D5w ([facility] 4.2 22:00 Thyroid Stimulating LAB 11/03/24 Logged Hormone 04:00 Date of Service: Nov 03, 2024 Billing Provider: CAIO ZARATE NP Common Visit Codes: [id number] INP/OBS CARE(HIGH) CAIO ZARATE NP Nov 03, 2024 11:19
[2024-11-03 15:18] LABS: Alanine Aminotransferase 37 U/L (7-40); Albumin 3.8 g/dL (3.2-4.8); Alkaline Phosphatase 77 U/L (46-116); Anion Gap 9 (5-15); BUN/Creatinine Ratio 18.8 (10.0-20.0); Blood Urea Nitrogen 15 mg/dL (9-23); Calcium 9.4 mg/dL (8.7-10.4); Carbon Dioxide 22 mmol/L (20-31); Chloride 107 mmol/L (98-107); Potassium 3.6 mmol/L (3.5-5.1); Sodium 138 mmol/L (136-145); Total Protein 6.6 g/dL (5.7-8.2)
[2024-11-03 15:19] LABS: Bilirubin, Total 0.4 mg/dL (0.2-1.0); Phosphorus 2.6 mg/dL (2.4-5.1)
[2024-11-03 15:21] LABS: Aspartate Aminotransferase 57 U/L (13-40); Glucose 129 mg/dL (74-106)
[2024-11-03] MEDS: AMINO ACID INFUSION IN D10W 1,000 ML IV SCH (22:00)
[2024-11-04] VITALS (10 sets, daily range): BP systolic 94–130; BP diastolic 43–67; PULSE 62–99; RESP 16–20; TEMP 97.5–99.1; O2SAT 95–100
--- NOTE | 2024-11-04 12:51 | DVHPN2 ---
Subjective Patient denies any symptoms. Reviewed: Care Plan, H&P, Labs, Previous Orders Changes from previous H/P or p: No Changes General: Per HPI Gastrointestinal: Diarrhea Genitourinary: Dysuria Objective Vitals Vital Signs Date Time Temp Pulse Resp B/P (MAP) Pulse Ox O2 Delivery O2 Flow Rate FiO2 11/04/24 12:31 72 106/57 11/04/24 10:53 20 100 11/04/24 10:45 Room Air 0.0 11/04/24 10:45 21 11/04/24 09:00 97.8 97.8 Intake/Output Intake and Output 11/04/24 07:00 Intake Total 892 ml Output Total 400 ml Balance 492 ml Intake Oral 400 ml IV Total 492 ml Stool Total 400 ml # Voids 3 General Appearance: Alert, Cooperative, No acute distress HEENT: Atraumatic, PERRLA Lungs: Clear to auscultation, Normal air movement Cardiovascular: Normal S1, Normal S2 Abdomen: Normal bowel sounds, Soft, No tenderness, No hepatospenomegaly, No masses Musculoskeletal: Normal sensory function, Normal motor function Extremities: No clubbing, No cyanosis, No edema, Normal pulses, No tenderness/swelling Neuro: Cranial nerves 3-12 NL Skin: Dry, Intact Psych/Mental Status: Mental status NL, Mood NL Medications Current Medications Medications Dose Ordered Sig/Osvaldo Route Start Time Stop Time Status Last Admin Dose Admin Budesonide 0.5 mg BID NEB 10/24/24 22:00 11/04/24 10:44 0.5 MG Amlodipine Besylate 10 mg DAILY PO 10/25/24 10:00 11/04/24 12:30 10 MG Atorvastatin Calcium 40 mg HS PO 10/24/24 22:00 11/03/24 21:59 40 MG Latanoprost 1 drop QPM EACHEYE 10/24/24 18:00 11/03/24 18:54 1 DROP Timolol Maleate 0.5 drop BID OP 10/24/24 22:00 11/04/24 12:31 0.5 DROP Quetiapine Fumarate 25 mg QHSP PRN PO 10/25/24 12:15 Carvedilol 3.125 mg BID PO 10/25/24 22:00 11/04/24 12:31 3.125 MG Haloperidol Lactate 2.5 mg Q8HP PRN IV 10/25/24 15:15 10/26/24 00:41 2.5 MG Acetaminophen 500 mg Q8HP PRN PO 10/25/24 15:30 11/04/24 00:49 500 MG Ondansetron HCl 4 mg Q6HP PRN IV 10/25/24 15:30 Albuterol 2.5 mg Q4HPRN PRN NEB 10/25/24 15:30 11/04/24 10:43 2.5 MG Ipratropium [place] 0.5 mg Q4HPRN PRN NEB 10/25/24 15:30 10/29/24 19:10 0.5 MG Hydralazine HCl 10 mg Q6HP PRN IV 10/26/24 00:30 10/31/24 11:56 10 MG Docusate Sodium 100 mg BID PO 10/27/24 15:15 11/04/24 12:30 100 MG Acetaminophen/ Hydrocodone Bitart 1 tab Q8HPRN PRN PO 10/28/24 20:45 11/04/24 12:24 1 TAB Amino Acids 0 ml @ 0 mls/hr PER PHARMACY IV 10/29/24 11:30 Megestrol Acetate 400 mg DAILY PO 10/30/24 10:00 11/03/24 09:07 400 MG Enteral Nutritional Formula 240 ml TIDWM PO 10/29/24 12:00 11/03/24 18:00 240 ML Diagnostic Test (Pha) 1 strip Q6HR 10/30/24 00:00 11/04/24 05:36 1 STRIP Insulin Human Regular FOLLOW SLIDING SCALE Q6HR SC 10/30/24 00:00 11/04/24 00:01 2 UNITS Dextrose 50 ml UD IV 10/30/24 00:00 Levothyroxine Sodium 200 mcg QAM@0600 PO 11/02/24 06:00 11/04/24 05:36 200 MCG Amino Acids/ Electrolytes/ Dextrose 1,000 ml @ 41 mls/hr DAILY@2200 IV 11/03/24 22:00 11/04/24 21:59 11/03/24 22:00 41 MLS/HR Amino Acids/ Electrolytes/ Dextrose 2,000 ml @ 41 mls/hr DAILY@2200 IV 11/04/24 22:00 Laboratory Results Laboratory Tests 10/27/24 10:27 11/03/24 14:53 Chemistry Test 11/03/24 14:53 Albumin 3.8 g/dL (3.2-4.8) Calcium Level 9.4 mg/dL (8.7-10.4) Magnesium Level 2.0 mg/dL (1.6-2.6) Phosphorus Level 2.6 mg/dL (2.4-5.1) Total Protein 6.6 g/dL (5.7-8.2) LFT Test 11/03/24 14:53 Alanine Aminotransferase (ALT) 37 U/L (7-40) Alkaline Phosphatase 77 U/L (46-116) Aspartate Amino Transferase (AST) 57 U/L (13-40) H Total Bilirubin 0.4 mg/dL (0.2-1.0) HgA1c, TSH Test 11/03/24 14:53 Thyroid Stimulating Hormone (TSH) 65.00 uIU/mL (0.55-4.78) H Urinalysis Test 10/24/24 10:06 Urine Color Light-yellow (Yellow) Urine Clarity Clear (Clear) Urine pH 7.5 (5.0-9.0) Urine Specific [place] 1.012 (1.001-1.035) Urine Protein Negative (Negative) Urine Ketones Negative (Negative) Urine Blood Negative /uL (Negative) Urine Nitrite Negative (Negative) Urine Bilirubin Negative (Negative) Urine Urobilinogen Normal mg/dL (Negative) Urine Leukocyte Esterase Negative /uL (Negative) Urine RBC 1 /hpf (0 - 4) Urine Microscopic WBC 1 /HPF (0-5) Urine Squamous Epithelial Cells Few /hpf (<5) Urine Bacteria None seen /hpf (None Seen) Urine Glucose Normal mg/dL (Normal) Microbiology Microbiology Date/Time Source Procedure Growth Status 10/26/24 19:25 Nose MRSA Screen - Final Complete 10/24/24 10:06 Voided Urine Urine Culture - Final Complete Labs and/or images reviewed: Labs reviewed by me, Image(s) reviewed by me Assessment/Plan Assessment/Plan Impression: -left lower lobe pneumonia -dementia -? Bradycardia -primary hypertension -asthma -dyslipidemia -thrombocytosis -severe hypothyroidism Plan: -events: Discussed case with family who was bedside today. Lab work went over regarding hypothyroidism. Goals for discharge discussed. Patient has not been ambulatory for several months given her acute CVA and severe osteoarthritis of the knees. Patient has poor oral intake. Once patient was able to have sufficient oral caloric intake with improvement of TSH, patient will be discharged home. Family verbalized agreement and understanding. All questions answered. -Increase levothyroxine to 200 mcg daily -restart home medications for agitation -bronchodilators -antihypertensives: Continue Coreg and amlodipine -continue Clinimix -social service consultation for discharge plan Total time spent with patient and family regarding advance care plannin minutes. Total time spent with patient discussing and formulating plan of care: 35 minutes. This medical document was created using an electronic medical record system with [employer] dictation system. Although this document has been carefully reviewed, there may still be some phonetic and typographical errors. These areas are purely typographical due to imperfections of the software programs, and do not reflect any compromise in the patient's medical care. Plan discussed with: Patient, Other (RN) My Orders Orders - CAIO ZARATE NP Procedure Category Date Status Time Clinimix Per Pharmacy RAFFAELE 11/03/24 In Process 22:00 Comprehensive LAB 11/04/24 Logged Metabolic Panel 04:00 Magnesium LAB 11/04/24 Logged 04:00 Phosphorus LAB 11/04/24 Logged 04:00 Comprehensive LAB 11/05/24 Verified Metabolic Panel 04:00 Magnesium LAB 11/05/24 Verified 04:00 Phosphorus LAB 11/05/24 Verified 04:00 Clinimix Per Pharmacy [facility] 11/04/24 In Process 22:00 Amino Acid Infusion PHA 11/04/24 In Process In D10w (Clinimix 4. 22:00 Date of Service: Nov 04, 2024 Billing Provider: CAIO ZARATE NP Common Visit Codes: [id number] INP/OBS CARE(HIGH) Secondary Visit Codes: [id number] CARE PLAN 30 MINUTES CAIO ZARATE NP Nov 04, 2024 12:51
[2024-11-04 15:03] LABS: Albumin 3.6 g/dL (3.2-4.8); Alkaline Phosphatase 69 U/L (46-116); Anion Gap 8 (5-15); BUN/Creatinine Ratio 14.6 (10.0-20.0); Bilirubin, Total 0.4 mg/dL (0.2-1.0); Blood Urea Nitrogen 12 mg/dL (9-23); Calcium 9.1 mg/dL (8.7-10.4); Carbon Dioxide 23 mmol/L (20-31); Chloride 106 mmol/L (98-107); Magnesium 1.9 mg/dL (1.6-2.6); Phosphorus 2.4 mg/dL (2.4-5.1); Sodium 137 mmol/L (136-145); Total Protein 6.2 g/dL (5.7-8.2)
[2024-11-04 15:05] LABS: Alanine Aminotransferase 41 U/L (7-40); Aspartate Aminotransferase 44 U/L (13-40); Glucose 146 mg/dL (74-106); Potassium 3.2 mmol/L (3.5-5.1)
[2024-11-04] MEDS: AMINO ACID INFUSION IN D10W 2,000 ML IV SCH (22:41)
[2024-11-05] VITALS (12 sets, daily range): BP systolic 117–141; BP diastolic 61–82; PULSE 78–100; RESP 16–20; TEMP 96.7–99.1; O2SAT 95–100
[2024-11-05] MEDS: POTASSIUM EFFERVESENT TAB 25 MEQ PO ONE (11:00)
--- NOTE | 2024-11-05 12:42 | DVHPN2 ---
Subjective Patient denies any symptoms. Reviewed: Care Plan, H&P, Labs, Previous Orders Changes from previous H/P or p: No Changes General: Per HPI Gastrointestinal: Diarrhea Genitourinary: Dysuria Objective Vitals Vital Signs Date Time Temp Pulse Resp B/P (MAP) Pulse Ox O2 Delivery O2 Flow Rate FiO2 11/05/24 09:00 99.1 88 20 133/61 (85) 96 99.1 11/05/24 07:14 Room Air* 0 21 Intake/Output Intake and Output 11/05/24 07:00 Intake Total 1501 ml Balance 1501 ml Intake Oral 1050 ml IV Total 451 ml # Voids 10 General Appearance: Alert, Cooperative, No acute distress HEENT: Atraumatic, PERRLA Lungs: Clear to auscultation, Normal air movement Cardiovascular: Normal S1, Normal S2 Abdomen: Normal bowel sounds, Soft, No tenderness, No hepatospenomegaly, No masses Genitourinary: No Apparent Abnormalities Musculoskeletal: Normal sensory function, Normal motor function Extremities: No clubbing, No cyanosis, No edema, Normal pulses, No tenderness/swelling Neuro: Cranial nerves 3-12 NL Skin: Dry, Intact Psych/Mental Status: Mental status NL, Mood NL Medications Current Medications Medications Dose Ordered Sig/Osvaldo Route Start Time Stop Time Status Last Admin Dose Admin Budesonide 0.5 mg BID NEB 10/24/24 22:00 11/05/24 07:06 0.5 MG Amlodipine Besylate 10 mg DAILY PO 10/25/24 10:00 11/04/24 12:30 10 MG Atorvastatin Calcium 40 mg HS PO 10/24/24 22:00 11/04/24 22:39 40 MG Latanoprost 1 drop QPM EACHEYE 10/24/24 18:00 11/03/24 18:54 1 DROP Timolol Maleate 0.5 drop BID OP 10/24/24 22:00 11/05/24 11:46 0.5 DROP Quetiapine Fumarate 25 mg QHSP PRN PO 10/25/24 12:15 Carvedilol 3.125 mg BID PO 10/25/24 22:00 11/04/24 22:39 3.125 MG Haloperidol Lactate 2.5 mg Q8HP PRN IV 10/25/24 15:15 10/26/24 00:41 2.5 MG Acetaminophen 500 mg Q8HP PRN PO 10/25/24 15:30 11/04/24 00:49 500 MG Ondansetron HCl 4 mg Q6HP PRN IV 10/25/24 15:30 Albuterol 2.5 mg Q4HPRN PRN NEB 10/25/24 15:30 11/05/24 07:06 2.5 MG Ipratropium [place] 0.5 mg Q4HPRN PRN NEB 10/25/24 15:30 11/05/24 07:06 0.5 MG Hydralazine HCl 10 mg Q6HP PRN IV 10/26/24 00:30 10/31/24 11:56 10 MG Docusate Sodium 100 mg BID PO 10/27/24 15:15 11/04/24 22:39 100 MG Acetaminophen/ Hydrocodone Bitart 1 tab Q8HPRN PRN PO 10/28/24 20:45 11/04/24 12:24 1 TAB Amino Acids 0 ml @ 0 mls/hr PER PHARMACY IV 10/29/24 11:30 Megestrol Acetate 400 mg DAILY PO 10/30/24 10:00 11/03/24 09:07 400 MG Enteral Nutritional Formula 240 ml TIDWM PO 10/29/24 12:00 11/03/24 18:00 240 ML Diagnostic Test (Pha) 1 strip Q6HR 10/30/24 00:00 11/04/24 14:02 1 STRIP Insulin Human Regular FOLLOW SLIDING SCALE Q6HR SC 10/30/24 00:00 11/04/24 14:06 4 UNITS Dextrose 50 ml UD IV 10/30/24 00:00 Levothyroxine Sodium 200 mcg QAM@0600 PO 11/02/24 06:00 11/05/24 06:34 200 MCG Amino Acids/ Electrolytes/ Dextrose 2,000 ml @ 41 mls/hr DAILY@2200 IV 11/04/24 22:00 11/04/24 22:41 41 MLS/HR Laboratory Results Laboratory Tests 10/27/24 10:27 11/04/24 14:33 Chemistry Test 11/04/24 14:33 Albumin 3.6 g/dL (3.2-4.8) Calcium Level 9.1 mg/dL (8.7-10.4) Magnesium Level 1.9 mg/dL (1.6-2.6) Phosphorus Level 2.4 mg/dL (2.4-5.1) Total Protein 6.2 g/dL (5.7-8.2) LFT Test 11/04/24 14:33 Alanine Aminotransferase (ALT) 41 U/L (7-40) H Alkaline Phosphatase 69 U/L (46-116) Aspartate Amino Transferase (AST) 44 U/L (13-40) H Total Bilirubin 0.4 mg/dL (0.2-1.0) HgA1c, TSH Test 11/04/24 14:33 Thyroid Stimulating Hormone (TSH) 37.92 uIU/mL (0.55-4.78) H Urinalysis Test 10/24/24 10:06 Urine Color Light-yellow (Yellow) Urine Clarity Clear (Clear) Urine pH 7.5 (5.0-9.0) Urine Specific [place] 1.012 (1.001-1.035) Urine Protein Negative (Negative) Urine Ketones Negative (Negative) Urine Blood Negative /uL (Negative) Urine Nitrite Negative (Negative) Urine Bilirubin Negative (Negative) Urine Urobilinogen Normal mg/dL (Negative) Urine Leukocyte Esterase Negative /uL (Negative) Urine RBC 1 /hpf (0 - 4) Urine Microscopic WBC 1 /HPF (0-5) Urine Squamous Epithelial Cells Few /hpf (<5) Urine Bacteria None seen /hpf (None Seen) Urine Glucose Normal mg/dL (Normal) Microbiology Microbiology Date/Time Source Procedure Growth Status 10/26/24 19:25 Nose MRSA Screen - Final Complete 10/24/24 10:06 Voided Urine Urine Culture - Final Complete Labs and/or images reviewed: Labs reviewed by me, Image(s) reviewed by me Assessment/Plan Assessment/Plan Impression: -left lower lobe pneumonia -dementia -? Bradycardia -primary hypertension -asthma -dyslipidemia -thrombocytosis -severe hypothyroidism Plan: -events: Discussed case with family who was bedside again today. Today, the patient was not taking oral medications. Continues to have poor oral intake. TSH has improved, now down to 37. Patient will be considered for discharge once p.o. intake has improved. -Increase levothyroxine to 200 mcg daily -restart home medications for agitation -bronchodilators -antihypertensives: Continue Coreg and amlodipine -continue Clinimix -social service consultation for discharge plan Total time spent with patient discussing and formulating plan of care: 35 minutes. This medical document was created using an electronic medical record system with [employer] dictation system. Although this document has been carefully reviewed, there may still be some phonetic and typographical errors. These areas are purely typographical due to imperfections of the software programs, and do not reflect any compromise in the patient's medical care. Plan discussed with: Patient, Other My Orders Orders - CAIO ZARATE NP Procedure Category Date Status Time Thyroid Stimulating LAB 11/05/24 Logged Hormone 04:00 Basic Metabolic Panel LAB 11/06/24 Verified 04:00 Thyroid Stimulating LAB 11/06/24 Verified Hormone 04:00 Date of Service: Nov 05, 2024 Billing Provider: CAIO ZARATE NP Common Visit Codes: [id number] INP/OBS CARE(HIGH) CAIO ZARATE NP Nov 05, 2024 12:42
[2024-11-05 16:07] LABS: Albumin 3.8 g/dL (3.2-4.8); Alkaline Phosphatase 77 U/L (46-116); Anion Gap 7 (5-15); BUN/Creatinine Ratio 13.5 (10.0-20.0); Blood Urea Nitrogen 10 mg/dL (9-23); Calcium 9.4 mg/dL (8.7-10.4); Carbon Dioxide 24 mmol/L (20-31); Glucose 101 mg/dL (74-106); Sodium 139 mmol/L (136-145); Total Protein 6.7 g/dL (5.7-8.2)
[2024-11-05 16:08] LABS: Bilirubin, Total 0.4 mg/dL (0.2-1.0)
[2024-11-05 16:12] LABS: Alanine Aminotransferase 50 U/L (7-40); Aspartate Aminotransferase 49 U/L (13-40); Chloride 108 mmol/L (98-107); Phosphorus 2.4 mg/dL (2.4-5.1); Potassium 3.4 mmol/L (3.5-5.1)
[2024-11-05] MEDS: TIMOLOL MAL 0.5% OPTH(EYE) SOL 5ML OP SCH (21:38)
[2024-11-05] MEDS: AMINO ACID INFUSION IN D5W 1,000 ML IV SCH (21:41)
[2024-11-06] VITALS (11 sets, daily range): BP systolic 97–143; BP diastolic 43–93; PULSE 68–89; RESP 16–20; TEMP 97–98.5; O2SAT 92–100
--- NOTE | 2024-11-06 11:26 | DVHPN2 ---
Subjective Patient denies any symptoms. Reviewed: Care Plan, H&P, Labs, Previous Orders Changes from previous H/P or p: No Changes General: Per HPI Gastrointestinal: Diarrhea Genitourinary: Dysuria Objective Vitals Vital Signs Date Time Temp Pulse Resp B/P (MAP) Pulse Ox O2 Delivery O2 Flow Rate FiO2 11/06/24 10:23 112/43 11/06/24 09:00 98.2 72 16 97 98.2 11/06/24 06:25 Room Air* 0 21 Intake/Output Intake and Output 11/06/24 07:00 Intake Total 1121 ml Balance 1121 ml Intake Oral 670 ml IV Total 451 ml # Voids 9 General Appearance: Alert, Cooperative, No acute distress HEENT: Atraumatic, PERRLA Lungs: Clear to auscultation, Normal air movement Cardiovascular: Normal S1, Normal S2 Abdomen: Normal bowel sounds, Soft, No tenderness, No hepatospenomegaly, No masses Genitourinary: No Apparent Abnormalities Musculoskeletal: Normal sensory function, Normal motor function Extremities: No clubbing, No cyanosis, No edema, Normal pulses, No tenderness/swelling Neuro: Cranial nerves 3-12 NL Skin: Dry, Intact Psych/Mental Status: Mental status NL, Mood NL Medications Current Medications Medications Dose Ordered Sig/Osvaldo Route Start Time Stop Time Status Last Admin Dose Admin Budesonide 0.5 mg BID NEB 10/24/24 22:00 11/06/24 06:25 0.5 MG Amlodipine Besylate 10 mg DAILY PO 10/25/24 10:00 11/06/24 10:23 10 MG Atorvastatin Calcium 40 mg HS PO 10/24/24 22:00 11/05/24 21:39 40 MG Latanoprost 1 drop QPM EACHEYE 10/24/24 18:00 11/03/24 18:54 1 DROP Quetiapine Fumarate 25 mg QHSP PRN PO 10/25/24 12:15 Carvedilol 3.125 mg BID PO 10/25/24 22:00 11/05/24 21:38 3.125 MG Haloperidol Lactate 2.5 mg Q8HP PRN IV 10/25/24 15:15 10/26/24 00:41 2.5 MG Acetaminophen 500 mg Q8HP PRN PO 10/25/24 15:30 11/04/24 00:49 500 MG Ondansetron HCl 4 mg Q6HP PRN IV 10/25/24 15:30 Albuterol 2.5 mg Q4HPRN PRN NEB 10/25/24 15:30 11/06/24 06:25 2.5 MG Ipratropium [place] 0.5 mg Q4HPRN PRN NEB 10/25/24 15:30 11/06/24 06:25 0.5 MG Hydralazine HCl 10 mg Q6HP PRN IV 10/26/24 00:30 10/31/24 11:56 10 MG Docusate Sodium 100 mg BID PO 10/27/24 15:15 11/06/24 10:23 100 MG Acetaminophen/ Hydrocodone Bitart 1 tab Q8HPRN PRN PO 10/28/24 20:45 11/05/24 21:36 1 TAB Megestrol Acetate 400 mg DAILY PO 10/30/24 10:00 11/06/24 10:23 400 MG Enteral Nutritional Formula 240 ml TIDWM PO 10/29/24 12:00 11/06/24 08:00 240 ML Diagnostic Test (Pha) 1 strip Q6HR 10/30/24 00:00 11/06/24 05:37 1 STRIP Insulin Human Regular FOLLOW SLIDING SCALE Q6HR SC 10/30/24 00:00 11/06/24 00:04 2 UNITS Dextrose 50 ml UD IV 10/30/24 00:00 Levothyroxine Sodium 200 mcg QAM@0600 PO 11/02/24 06:00 11/06/24 10:23 200 MCG Timolol Maleate 1 drop BID OP 11/05/24 22:00 11/06/24 10:23 1 DROP Laboratory Results Laboratory Tests 10/27/24 10:27 11/05/24 15:37 Chemistry Test 11/05/24 15:37 Albumin 3.8 g/dL (3.2-4.8) Calcium Level 9.4 mg/dL (8.7-10.4) Magnesium Level 2.0 mg/dL (1.6-2.6) Phosphorus Level 2.4 mg/dL (2.4-5.1) Total Protein 6.7 g/dL (5.7-8.2) LFT Test 11/05/24 15:37 Alanine Aminotransferase (ALT) 50 U/L (7-40) H Alkaline Phosphatase 77 U/L (46-116) Aspartate Amino Transferase (AST) 49 U/L (13-40) H Total Bilirubin 0.4 mg/dL (0.2-1.0) HgA1c, TSH Test 11/05/24 15:37 Thyroid Stimulating Hormone (TSH) 26.00 uIU/mL (0.55-4.78) H Urinalysis Test 10/24/24 10:06 Urine Color Light-yellow (Yellow) Urine Clarity Clear (Clear) Urine pH 7.5 (5.0-9.0) Urine Specific [place] 1.012 (1.001-1.035) Urine Protein Negative (Negative) Urine Ketones Negative (Negative) Urine Blood Negative /uL (Negative) Urine Nitrite Negative (Negative) Urine Bilirubin Negative (Negative) Urine Urobilinogen Normal mg/dL (Negative) Urine Leukocyte Esterase Negative /uL (Negative) Urine RBC 1 /hpf (0 - 4) Urine Microscopic WBC 1 /HPF (0-5) Urine Squamous Epithelial Cells Few /hpf (<5) Urine Bacteria None seen /hpf (None Seen) Urine Glucose Normal mg/dL (Normal) Microbiology Microbiology Date/Time Source Procedure Growth Status 10/26/24 19:25 Nose MRSA Screen - Final Complete 10/24/24 10:06 Voided Urine Urine Culture - Final Complete Labs and/or images reviewed: Labs reviewed by me, Image(s) reviewed by me Assessment/Plan Assessment/Plan Impression: -left lower lobe pneumonia -dementia -? Bradycardia -primary hypertension -asthma -dyslipidemia -thrombocytosis -severe hypothyroidism Plan: -events: Patient with improved oral intake. Stop Clinimix. We will reassess patient's willingness to take mother home now that she was taking improved oral intake. -Levothyroxine to 200 mcg daily -restart home medications for agitation -bronchodilators -antihypertensives: Continue Coreg and amlodipine Total time spent with patient discussing and formulating plan of care: 35 minutes. This medical document was created using an electronic medical record system with [employer] dictation system. Although this document has been carefully reviewed, there may still be some phonetic and typographical errors. These areas are purely typographical due to imperfections of the software programs, and do not reflect any compromise in the patient's medical care. Plan discussed with: Patient, Other (RN) My Orders Orders - SALBINO,KEARNEY HIDE [employer]CH[employer] HAND Procedure Category Date Status Time Thyroid Stimulating LAB 11/06/24 Logged Hormone 04:00 Clinimix Per Pharmacy [facility] 11/05/24 In Process 22:00 Comprehensive LAB 11/06/24 Logged Metabolic Panel 09:40 Magnesium LAB 11/06/24 Logged 14:00 Phosphorus LAB 11/06/24 Logged 14:00 Comprehensive LAB 11/07/24 Verified Metabolic Panel 04:00 Magnesium LAB 11/07/24 Verified 04:00 Phosphorus LAB 11/07/24 Verified 04:00 Clinimix Per Pharmacy [facility] 11/06/24 In Process 22:00 Date of Service: Nov 06, 2024 Billing Provider: CAIO ZARATE NP Common Visit Codes: [id number] INP/OBS CARE(HIGH) CAIO ZARATE NP Nov 06, 2024 11:26
[2024-11-06 14:52] LABS: Albumin 3.6 g/dL (3.2-4.8); Alkaline Phosphatase 69 U/L (46-116); Anion Gap 7 (5-15); BUN/Creatinine Ratio 18.6 (10.0-20.0); Blood Urea Nitrogen 13 mg/dL (9-23); Calcium 9.3 mg/dL (8.7-10.4); Carbon Dioxide 23 mmol/L (20-31); Magnesium 1.9 mg/dL (1.6-2.6); Sodium 138 mmol/L (136-145); Total Protein 6.2 g/dL (5.7-8.2)
[2024-11-06 14:53] LABS: Alanine Aminotransferase 53 U/L (7-40); Aspartate Aminotransferase 47 U/L (13-40); Bilirubin, Total 0.4 mg/dL (0.2-1.0); Chloride 108 mmol/L (98-107); Glucose 111 mg/dL (74-106); Phosphorus 2.3 mg/dL (2.4-5.1)
[2024-11-07] VITALS (11 sets, daily range): BP systolic 123–139; BP diastolic 54–83; PULSE 65–90; RESP 16–19; TEMP 97.6–98.6; O2SAT 94–100
[2024-11-07 10:07] LABS: Alkaline Phosphatase 65 U/L (46-116); Calcium 9.1 mg/dL (8.7-10.4); Carbon Dioxide 25 mmol/L (20-31); Chloride 107 mmol/L (98-107); Potassium 3.8 mmol/L (3.5-5.1)
[2024-11-07 10:08] LABS: Anion Gap 7 (5-15); Blood Urea Nitrogen 9 mg/dL (9-23); Sodium 139 mmol/L (136-145); Total Protein 6.4 g/dL (5.7-8.2)
[2024-11-07 10:09] LABS: Albumin 3.7 g/dL (3.2-4.8); Aspartate Aminotransferase 31 U/L (13-40); Bilirubin, Total 0.4 mg/dL (0.2-1.0); Phosphorus 2.6 mg/dL (2.4-5.1)
[2024-11-07 10:26] LABS: Alanine Aminotransferase 43 U/L (7-40); Glucose 145 mg/dL (74-106)
--- NOTE | 2024-11-07 11:27 | DVHPN2 ---
Subjective Patient denies any symptoms. Reviewed: Care Plan, H&P, Labs, Previous Orders Changes from previous H/P or p: No Changes General: Per HPI Gastrointestinal: Diarrhea Genitourinary: Dysuria Objective Vitals Vital Signs Date Time Temp Pulse Resp B/P (MAP) Pulse Ox O2 Delivery O2 Flow Rate FiO2 11/07/24 10:38 139/83 11/07/24 10:37 77 11/07/24 08:30 16 100 Room Air* 0 21 11/07/24 05:00 97.6 97.6 Intake/Output Intake and Output 11/07/24 07:00 Intake Total 950 ml Balance 950 ml Intake Oral 950 ml # Voids 4 General Appearance: Alert, Cooperative, No acute distress HEENT: Atraumatic, PERRLA Lungs: Clear to auscultation, Normal air movement Cardiovascular: Normal S1, Normal S2 Abdomen: Normal bowel sounds, Soft, No tenderness, No hepatospenomegaly, No masses Genitourinary: No Apparent Abnormalities Musculoskeletal: Normal sensory function, Normal motor function Extremities: No clubbing, No cyanosis, No edema, Normal pulses, No tenderness/swelling Neuro: Cranial nerves 3-12 NL Skin: Dry, Intact Psych/Mental Status: Mental status NL, Mood NL Medications Current Medications Medications Dose Ordered Sig/Osvaldo Route Start Time Stop Time Status Last Admin Dose Admin Budesonide 0.5 mg BID NEB 10/24/24 22:00 11/07/24 05:54 0.5 MG Amlodipine Besylate 10 mg DAILY PO 10/25/24 10:00 11/07/24 10:38 10 MG Atorvastatin Calcium 40 mg HS PO 10/24/24 22:00 11/06/24 21:39 40 MG Latanoprost 1 drop QPM EACHEYE 10/24/24 18:00 11/06/24 17:59 1 DROP Quetiapine Fumarate 25 mg QHSP PRN PO 10/25/24 12:15 Carvedilol 3.125 mg BID PO 10/25/24 22:00 11/07/24 10:37 3.125 MG Haloperidol Lactate 2.5 mg Q8HP PRN IV 10/25/24 15:15 10/26/24 00:41 2.5 MG Acetaminophen 500 mg Q8HP PRN PO 10/25/24 15:30 11/04/24 00:49 500 MG Ondansetron HCl 4 mg Q6HP PRN IV 10/25/24 15:30 Albuterol 2.5 mg Q4HPRN PRN NEB 10/25/24 15:30 11/06/24 06:25 2.5 MG Ipratropium [place] 0.5 mg Q4HPRN PRN NEB 10/25/24 15:30 11/06/24 06:25 0.5 MG Hydralazine HCl 10 mg Q6HP PRN IV 10/26/24 00:30 10/31/24 11:56 10 MG Docusate Sodium 100 mg BID PO 10/27/24 15:15 11/07/24 10:38 100 MG Acetaminophen/ Hydrocodone Bitart 1 tab Q8HPRN PRN PO 10/28/24 20:45 11/07/24 10:37 1 TAB Megestrol Acetate 400 mg DAILY PO 10/30/24 10:00 11/07/24 10:37 400 MG Enteral Nutritional Formula 240 ml TIDWM PO 10/29/24 12:00 11/07/24 08:30 240 ML Dextrose 50 ml UD IV 10/30/24 00:00 Levothyroxine Sodium 200 mcg QAM@0600 PO 11/02/24 06:00 11/07/24 06:00 200 MCG Timolol Maleate 1 drop BID OP 11/05/24 22:00 11/07/24 10:36 1 DROP Laboratory Results Laboratory Tests 10/27/24 10:27 11/07/24 09:37 Chemistry Test 11/06/24 14:14 11/07/24 09:37 Albumin 3.6 g/dL (3.2-4.8) 3.7 g/dL (3.2-4.8) Calcium Level 9.3 mg/dL (8.7-10.4) 9.1 mg/dL (8.7-10.4) Magnesium Level 1.9 mg/dL (1.6-2.6) 2.0 mg/dL (1.6-2.6) Phosphorus Level 2.3 mg/dL (2.4-5.1) L 2.6 mg/dL (2.4-5.1) Total Protein 6.2 g/dL (5.7-8.2) 6.4 g/dL (5.7-8.2) LFT Test 11/06/24 14:14 11/07/24 09:37 Alanine Aminotransferase (ALT) 53 U/L (7-40) H 43 U/L (7-40) H Alkaline Phosphatase 69 U/L (46-116) 65 U/L (46-116) Aspartate Amino Transferase (AST) 47 U/L (13-40) H 31 U/L (13-40) Total Bilirubin 0.4 mg/dL (0.2-1.0) 0.4 mg/dL (0.2-1.0) HgA1c, TSH Test 11/06/24 14:14 Thyroid Stimulating Hormone (TSH) 29.61 uIU/mL (0.55-4.78) H Urinalysis Test 10/24/24 10:06 Urine Color Light-yellow (Yellow) Urine Clarity Clear (Clear) Urine pH 7.5 (5.0-9.0) Urine Specific [place] 1.012 (1.001-1.035) Urine Protein Negative (Negative) Urine Ketones Negative (Negative) Urine Blood Negative /uL (Negative) Urine Nitrite Negative (Negative) Urine Bilirubin Negative (Negative) Urine Urobilinogen Normal mg/dL (Negative) Urine Leukocyte Esterase Negative /uL (Negative) Urine RBC 1 /hpf (0 - 4) Urine Microscopic WBC 1 /HPF (0-5) Urine Squamous Epithelial Cells Few /hpf (<5) Urine Bacteria None seen /hpf (None Seen) Urine Glucose Normal mg/dL (Normal) Microbiology Microbiology Date/Time Source Procedure Growth Status 10/26/24 19:25 Nose MRSA Screen - Final Complete 10/24/24 10:06 Voided Urine Urine Culture - Final Complete Labs and/or images reviewed: Labs reviewed by me, Image(s) reviewed by me Assessment/Plan Assessment/Plan Impression: -left lower lobe pneumonia -dementia -? Bradycardia -primary hypertension -asthma -dyslipidemia -thrombocytosis -severe hypothyroidism Plan: -events: TSH improving. Discussed case with patient's daughter Kellie regarding outpatient services including hospice. Kellie states that she was open to speaking about any help she can get has an outpatient. Social service consultation will be placed. -Levothyroxine to 200 mcg daily -restart home medications for agitation -bronchodilators -antihypertensives: Continue Coreg and amlodipine Total time spent with patient discussing and formulating plan of care: 35 minutes. This medical document was created using an electronic medical record system with [employer] computerized dictation system. Although this document has been carefully reviewed, there may still be some phonetic and typographical errors. These areas are purely typographical due to imperfections of the software programs, and do not reflect any compromise in the patient's medical care. Plan discussed with: Patient, Other (RN) Date of Service: Nov 07, 2024 Billing Provider: CAIO ZARATE NP Common Visit Codes: [id number] INP/OBS CARE(HIGH) CAIO ZARATE NP Nov 07, 2024 11:27
[2024-11-08] VITALS (10 sets, daily range): BP systolic 114–144; BP diastolic 66–80; PULSE 71–87; RESP 16–18; TEMP 97.6–98.4; O2SAT 97–100
--- NOTE | 2024-11-08 14:42 | DVHPN2 ---
Subjective Patient denies any symptoms. Reviewed: Care Plan, H&P, Labs, Previous Orders Changes from previous H/P or p: No Changes General: Per HPI Gastrointestinal: Diarrhea Genitourinary: Dysuria Objective Vitals Vital Signs Date Time Temp Pulse Resp B/P (MAP) Pulse Ox O2 Delivery O2 Flow Rate FiO2 11/08/24 13:00 97.6 73 18 114/66 (82) 97 97.6 11/08/24 09:30 Room Air 0.0 11/08/24 09:30 21 Intake/Output Intake and Output 11/08/24 07:00 Intake Total 840 ml Balance 840 ml Intake Oral 840 ml # Voids 2 General Appearance: Alert, Cooperative, No acute distress HEENT: Atraumatic, PERRLA Lungs: Clear to auscultation, Normal air movement Cardiovascular: Normal S1, Normal S2 Abdomen: Normal bowel sounds, Soft, No tenderness, No hepatospenomegaly, No masses Genitourinary: No Apparent Abnormalities Musculoskeletal: Normal sensory function, Normal motor function Extremities: No clubbing, No cyanosis, No edema, Normal pulses, No tenderness/swelling Neuro: Cranial nerves 3-12 NL Skin: Dry, Intact Psych/Mental Status: Mental status NL, Mood NL Medications Current Medications Medications Dose Ordered Sig/Osvaldo Route Start Time Stop Time Status Last Admin Dose Admin Budesonide 0.5 mg BID NEB 10/24/24 22:00 11/07/24 18:28 0.5 MG Amlodipine Besylate 10 mg DAILY PO 10/25/24 10:00 11/08/24 09:46 10 MG Atorvastatin Calcium 40 mg HS PO 10/24/24 22:00 11/07/24 21:17 40 MG Latanoprost 1 drop QPM EACHEYE 10/24/24 18:00 11/07/24 19:20 1 DROP Quetiapine Fumarate 25 mg QHSP PRN PO 10/25/24 12:15 Carvedilol 3.125 mg BID PO 10/25/24 22:00 11/08/24 09:47 3.125 MG Haloperidol Lactate 2.5 mg Q8HP PRN IV 10/25/24 15:15 10/26/24 00:41 2.5 MG Acetaminophen 500 mg Q8HP PRN PO 10/25/24 15:30 11/07/24 17:09 500 MG Ondansetron HCl 4 mg Q6HP PRN IV 10/25/24 15:30 Albuterol 2.5 mg Q4HPRN PRN NEB 10/25/24 15:30 11/06/24 06:25 2.5 MG Ipratropium [place] 0.5 mg Q4HPRN PRN NEB 10/25/24 15:30 11/06/24 06:25 0.5 MG Hydralazine HCl 10 mg Q6HP PRN IV 10/26/24 00:30 10/31/24 11:56 10 MG Docusate Sodium 100 mg BID PO 10/27/24 15:15 11/08/24 09:46 100 MG Acetaminophen/ Hydrocodone Bitart 1 tab Q8HPRN PRN PO 10/28/24 20:45 11/07/24 21:20 1 TAB Megestrol Acetate 400 mg DAILY PO 10/30/24 10:00 11/08/24 09:46 400 MG Enteral Nutritional Formula 240 ml TIDWM PO 10/29/24 12:00 11/08/24 08:15 240 ML Dextrose 50 ml UD IV 10/30/24 00:00 Levothyroxine Sodium 200 mcg QAM@0600 PO 11/02/24 06:00 11/08/24 05:34 200 MCG Timolol Maleate 1 drop BID OP 11/05/24 22:00 11/08/24 09:46 1 DROP Laboratory Results Laboratory Tests 10/27/24 10:27 11/07/24 09:37 Urinalysis Test 10/24/24 10:06 Urine Color Light-yellow (Yellow) Urine Clarity Clear (Clear) Urine pH 7.5 (5.0-9.0) Urine Specific [place] 1.012 (1.001-1.035) Urine Protein Negative (Negative) Urine Ketones Negative (Negative) Urine Blood Negative /uL (Negative) Urine Nitrite Negative (Negative) Urine Bilirubin Negative (Negative) Urine Urobilinogen Normal mg/dL (Negative) Urine Leukocyte Esterase Negative /uL (Negative) Urine RBC 1 /hpf (0 - 4) Urine Microscopic WBC 1 /HPF (0-5) Urine Squamous Epithelial Cells Few /hpf (<5) Urine Bacteria None seen /hpf (None Seen) Urine Glucose Normal mg/dL (Normal) Microbiology Microbiology Date/Time Source Procedure Growth Status 10/26/24 19:25 Nose MRSA Screen - Final Complete 10/24/24 10:06 Voided Urine Urine Culture - Final Complete Labs and/or images reviewed: Labs reviewed by me, Image(s) reviewed by me Assessment/Plan Assessment/Plan Impression: -left lower lobe pneumonia -dementia -? Bradycardia -primary hypertension -asthma -dyslipidemia -thrombocytosis -severe hypothyroidism Plan: -events: Discussion made with the patient's family yesterday regarding discharge planning. Patient continues to have poor oral intake secondary to multifactorial patient was such as CVA, dementia. Clinimix as off. Family is still considering hospice. Continue current plan of care. -Levothyroxine to 200 mcg daily -restart home medications for agitation -bronchodilators -antihypertensives: Continue Coreg and amlodipine -social service consultation for discharge planning Total time spent with patient discussing and formulating plan of care: 35 minutes. This medical document was created using an electronic medical record system with [employer] dictation system. Although this document has been carefully reviewed, there may still be some phonetic and typographical errors. These areas are purely typographical due to imperfections of the software programs, and do not reflect any compromise in the patient's medical care. Plan discussed with: Patient, Other (RN) My Orders Orders - CAIO ZARATE NP Procedure Category Date Status Time * Child Care CONS 11/07/24 Transmitted Consult Date of Service: Nov 08, 2024 Billing Provider: CAIO ZARATE NP Common Visit Codes: [id number] INP/OBS CARE(HIGH) CAIO ZARATE NP Nov 08, 2024 14:42
[2024-11-08] MEDS: QUEtiapine FUMARATE 25 MG TAB PO PRN (22:20)
[2024-11-09] VITALS (11 sets, daily range): BP systolic 123–129; BP diastolic 54–82; PULSE 65–88; RESP 15–20; TEMP 97.6–98.9; O2SAT 96–100
--- NOTE | 2024-11-09 14:16 | DVHPN2 ---
Subjective The patient is seen and examined at bedside. Very sleepy and lethargic Reviewed: Care Plan, H&P, Labs, Previous Orders Changes from previous H/P or p: No Changes General: Per HPI Gastrointestinal: Diarrhea Genitourinary: Dysuria Objective Vitals Vital Signs Date Time Temp Pulse Resp B/P (MAP) Pulse Ox O2 Delivery O2 Flow Rate FiO2 11/09/24 12:56 97.9 79 17 128/72 (90) 96 97.9 11/09/24 08:09 Room Air* 0 21 Intake/Output Intake and Output 11/09/24 07:00 Intake Total 745 ml Output Total 500 ml Balance 245 ml Intake Oral 745 ml Output Urine Total 500 ml # Voids 4 # Bowel Movements 1 General Appearance: Alert, Cooperative, No acute distress HEENT: Atraumatic, PERRLA Lungs: Clear to auscultation, Normal air movement Cardiovascular: Normal S1, Normal S2 Abdomen: Normal bowel sounds, Soft, No tenderness, No hepatospenomegaly, No masses Genitourinary: No Apparent Abnormalities Musculoskeletal: Normal sensory function, Normal motor function Extremities: No clubbing, No cyanosis, No edema, Normal pulses, No tenderness/swelling Neuro: Cranial nerves 3-12 NL Skin: Dry, Intact Psych/Mental Status: Mental status NL, Mood NL Medications Current Medications Medications Dose Ordered Sig/Osvaldo Route Start Time Stop Time Status Last Admin Dose Admin Budesonide 0.5 mg BID NEB 10/24/24 22:00 11/09/24 06:50 0.5 MG Amlodipine Besylate 10 mg DAILY PO 10/25/24 10:00 11/09/24 09:49 10 MG Atorvastatin Calcium 40 mg HS PO 10/24/24 22:00 11/08/24 21:20 40 MG Latanoprost 1 drop QPM EACHEYE 10/24/24 18:00 11/08/24 18:31 1 DROP Quetiapine Fumarate 25 mg QHSP PRN PO 10/25/24 12:15 11/08/24 22:20 25 MG Carvedilol 3.125 mg BID PO 10/25/24 22:00 11/09/24 09:49 3.125 MG Haloperidol Lactate 2.5 mg Q8HP PRN IV 10/25/24 15:15 10/26/24 00:41 2.5 MG Acetaminophen 500 mg Q8HP PRN PO 10/25/24 15:30 11/07/24 17:09 500 MG Ondansetron HCl 4 mg Q6HP PRN IV 10/25/24 15:30 Albuterol 2.5 mg Q4HPRN PRN NEB 10/25/24 15:30 11/06/24 06:25 2.5 MG Ipratropium [place] 0.5 mg Q4HPRN PRN NEB 10/25/24 15:30 11/06/24 06:25 0.5 MG Hydralazine HCl 10 mg Q6HP PRN IV 10/26/24 00:30 10/31/24 11:56 10 MG Docusate Sodium 100 mg BID PO 10/27/24 15:15 11/09/24 09:50 100 MG Acetaminophen/ Hydrocodone Bitart 1 tab Q8HPRN PRN PO 10/28/24 20:45 11/08/24 22:20 1 TAB Megestrol Acetate 400 mg DAILY PO 10/30/24 10:00 11/09/24 09:49 400 MG Enteral Nutritional Formula 240 ml TIDWM PO 10/29/24 12:00 11/09/24 08:00 240 ML Dextrose 50 ml UD IV 10/30/24 00:00 Levothyroxine Sodium 200 mcg QAM@0600 PO 11/02/24 06:00 11/09/24 06:01 200 MCG Timolol Maleate 1 drop BID OP 11/05/24 22:00 11/09/24 09:49 1 DROP Laboratory Results Laboratory Tests 10/27/24 10:27 11/07/24 09:37 Urinalysis Test 10/24/24 10:06 Urine Color Light-yellow (Yellow) Urine Clarity Clear (Clear) Urine pH 7.5 (5.0-9.0) Urine Specific [place] 1.012 (1.001-1.035) Urine Protein Negative (Negative) Urine Ketones Negative (Negative) Urine Blood Negative /uL (Negative) Urine Nitrite Negative (Negative) Urine Bilirubin Negative (Negative) Urine Urobilinogen Normal mg/dL (Negative) Urine Leukocyte Esterase Negative /uL (Negative) Urine RBC 1 /hpf (0 - 4) Urine Microscopic WBC 1 /HPF (0-5) Urine Squamous Epithelial Cells Few /hpf (<5) Urine Bacteria None seen /hpf (None Seen) Urine Glucose Normal mg/dL (Normal) Microbiology Microbiology Date/Time Source Procedure Growth Status 10/26/24 19:25 Nose MRSA Screen - Final Complete 10/24/24 10:06 Voided Urine Urine Culture - Final Complete Labs and/or images reviewed: Labs reviewed by me Assessment/Plan Assessment/Plan -left lower lobe pneumonia -dementia -? Bradycardia -primary hypertension -asthma -dyslipidemia -thrombocytosis -severe hypothyroidism Plan: Continuing current management. Discussed with daughter. Per family, they agree with hospice. We will let social services technician know. Continuing with Synthroid, continuing with home medication. Continuing with bronchodilators, continuing with Coreg and amlodipine. This medical document was created using an electronic medical record system with [employer] computerized dictation system. Although this document has been carefully reviewed, there may still be some phonetic and typographical errors. These areas are purely typographical due to imperfections of the software programs, and do not reflect any compromise in the patient's medical care. Plan discussed with: Daughter Date of Service: Nov 09, 2024 Billing Provider: YANIQUE MEADE MD Common Visit Codes: [id number] INP/OBS CARE(HIGH) YANIQUE MEADE MD Nov 09, 2024 14:16
[2024-11-10] VITALS (13 sets, daily range): BP systolic 96–121; BP diastolic 50–68; PULSE 64–81; RESP 16–20; TEMP 98.4–98.9; O2SAT 96–100
--- NOTE | 2024-11-10 14:43 | DVHDS2 ---
Discharge Summary Date of Admission Oct 24, 2024 at 17:06 Date of Discharge: Nov 10, 2024 Labs/Diagnostic Data: Laboratory Results Test 11/07/24 09:37 11/07/24 05:59 11/06/24 14:14 11/01/24 13:12 Sodium Level 139 mmol/L (136-145) Potassium Level 3.8 mmol/L (3.5-5.1) Chloride Level 107 mmol/L (98-107) Carbon Dioxide Level 25 mmol/L (20-31) Anion Gap 7 (5-15) Blood Urea Nitrogen 9 mg/dL (9-23) Creatinine 0.75 mg/dL (0.550-1.02) Glomerular Filtration Rate Calc 80 mL/min (>90) BUN/Creatinine Ratio 12.0 (10.0-20.0) Serum Glucose 145 mg/dL (74-106) Calcium Level 9.1 mg/dL (8.7-10.4) Phosphorus Level 2.6 mg/dL (2.4-5.1) Magnesium Level 2.0 mg/dL (1.6-2.6) Total Bilirubin 0.4 mg/dL (0.2-1.0) Aspartate Amino Transferase (AST) 31 U/L (13-40) Alanine Aminotransferase (ALT) 43 U/L (7-40) Alkaline Phosphatase 65 U/L (46-116) Total Protein 6.4 g/dL (5.7-8.2) Albumin 3.7 g/dL (3.2-4.8) POC Glucose 104 mg/dl (70-106) Thyroid Stimulating Hormone (TSH) 29.61 uIU/mL (0.55-4.78) Vitamin B1 Level 91.0 nmol/L (66.5-200.0) Test 10/28/24 16:56 10/27/24 10:27 10/24/24 10:08 10/24/24 10:06 Vitamin B12 Level 982 pg/mL (211-911) Vitamin D 25-Hydroxy ng/mL (.) 25-Hydroxy Vitamin D2 (.) 25-Hydroxy Vitamin D3 (.) White Blood Count 11.2 10^3/uL (4.4-10.8) Red Blood Count 5.09 10^6/uL (4.0-5.20) Hemoglobin 14.3 g/dL (12.2-16.2) Hematocrit 44.3 % (36.0-46.0) Mean Corpuscular Volume 87.0 fL (80.0-100.0) Mean Corpuscular Hemoglobin 28.1 pg (28.0-32.0) Mean Corpuscular Hemoglobin Concent 32.3 g/dL (32.0-36.0) Red Cell Distribution Width 16.5 % (11.8-14.3) Platelet Count 587 10^3/uL (140-450) Mean Platelet Volume 6.8 fL (6.9-10.8) Neutrophils (%) (Auto) 74.1 % (37.0-80.0) Lymphocytes (%) (Auto) 13.8 % (10.0-50.0) Monocytes (%) (Auto) 9.5 % (0.0-12.0) Eosinophils (%) (Auto) 1.6 % (0.0-7.0) Basophils (%) (Auto) 1.0 % (0.0-2.0) Neutrophils # (Auto) 8.3 10 ^3/uL (1.6-8.6) Lymphocytes # (Auto) 1.5 10 ^3/uL (0.4-5.4) Monocytes # (Auto) 1.1 10 ^3/uL (0-1.3) Eosinophils # (Auto) 0.2 10 ^3/uL (0-0.8) Basophils # (Auto) 0.1 10 ^3/uL (0-0.2) Nucleated Red Blood Cells 0.2 % Lactate Dehydrogenase 354 U/L (120-246) Troponin I High Sensitivity 6 ng/L (</=34) Urine Color Light-yellow (Yellow) Urine Clarity Clear (Clear) Urine pH 7.5 (5.0-9.0) Urine Specific [place] 1.012 (1.001-1.035) Urine Protein Negative (Negative) Urine Ketones Negative (Negative) Urine Blood Negative /uL (Negative) Urine Nitrite Negative (Negative) Urine Bilirubin Negative (Negative) Urine Urobilinogen Normal mg/dL (Negative) Urine Leukocyte Esterase Negative /uL (Negative) Urine RBC 1 /hpf (0 - 4) Urine Microscopic WBC 1 /HPF (0-5) Urine Squamous Epithelial Cells Few /hpf (<5) Urine Bacteria None seen /hpf (None Seen) Urine Glucose Normal mg/dL (Normal) Other Laboratory Tests 11/07/24 09:37 10/27/24 10:27 Final Diagnosis/Problems List encephalopathy failure to thrive Discharge Disposition: Hospice- Medical Facility Discharge Instruct/Medications Diet: Regular Diet comment: mechanical soft Activity: No Restrictions, As Tolerated Follow Up/Referral: pcp 1-2 weeks Medications: Resume home meds Discharge Statement: "Patient was advised to return to the ER or call 911 if any headaches, dizziness, shortness of breath, chest pain, abdominal pain, bleeding, fevers, or worsening of medical condition. Patient was counseled about treatment plan, medications, possible side effects, patientverbalized understanding. All questions were answered to the best of my ability. This discharge took greater then 30 minutes in planning, reviewing documentation, counseling the patient, and discussing with other team members." ASSESSMENT ASSESSMENT Assessment encephalopathy failure to thrive YANIQUE MEADE MD Nov 10, 2024 14:42
--- NOTE | 2024-11-10 23:00 | DVHPN2 ---
Subjective The patient is seen and examined at bedside. No complaint today. Patient is alert awake. Per daughter patient refused puree food. Patient will eat soft chopped food. She able to eat crackers now. Reviewed: Care Plan, H&P, Labs, Previous Orders Changes from previous H/P or p: No Changes General: Per HPI Gastrointestinal: Diarrhea Genitourinary: Dysuria Objective Vitals Vital Signs Date Time Temp Pulse Resp B/P (MAP) Pulse Ox O2 Delivery O2 Flow Rate FiO2 11/10/24 22:22 68 16 99 11/10/24 22:16 Room Air 11/10/24 22:16 0 21 11/10/24 21:35 101/56 11/10/24 21:00 98.4 98.4 Intake/Output Intake and Output 11/10/24 07:00 Intake Total 1330 ml Balance 1330 ml Intake Oral 1330 ml # Voids 7 # Bowel Movements 1 General Appearance: Alert, Cooperative, No acute distress HEENT: Atraumatic, PERRLA Lungs: Clear to auscultation, Normal air movement Cardiovascular: Normal S1, Normal S2 Abdomen: Normal bowel sounds, Soft, No tenderness, No hepatospenomegaly, No masses Genitourinary: No Apparent Abnormalities Musculoskeletal: Normal sensory function, Normal motor function Extremities: No clubbing, No cyanosis, No edema, Normal pulses, No tenderness/swelling Neuro: Cranial nerves 3-12 NL Skin: Dry, Intact Psych/Mental Status: Mental status NL, Mood NL Medications Current Medications Medications Dose Ordered Sig/Osvaldo Route Start Time Stop Time Status Last Admin Dose Admin Budesonide 0.5 mg BID NEB 10/24/24 22:00 11/10/24 22:16 0.5 MG Amlodipine Besylate 10 mg DAILY PO 10/25/24 10:00 11/10/24 09:18 10 MG Atorvastatin Calcium 40 mg HS PO 10/24/24 22:00 11/10/24 21:33 40 MG Latanoprost 1 drop QPM EACHEYE 10/24/24 18:00 11/10/24 17:16 1 DROP Quetiapine Fumarate 25 mg QHSP PRN PO 10/25/24 12:15 11/08/24 22:20 25 MG Carvedilol 3.125 mg BID PO 10/25/24 22:00 11/10/24 21:35 3.125 MG Haloperidol Lactate 2.5 mg Q8HP PRN IV 10/25/24 15:15 10/26/24 00:41 2.5 MG Acetaminophen 500 mg Q8HP PRN PO 10/25/24 15:30 11/10/24 21:33 500 MG Ondansetron HCl 4 mg Q6HP PRN IV 10/25/24 15:30 Albuterol 2.5 mg Q4HPRN PRN NEB 10/25/24 15:30 11/10/24 10:28 2.5 MG Ipratropium [place] 0.5 mg Q4HPRN PRN NEB 10/25/24 15:30 11/10/24 10:28 0.5 MG Hydralazine HCl 10 mg Q6HP PRN IV 10/26/24 00:30 10/31/24 11:56 10 MG Docusate Sodium 100 mg BID PO 10/27/24 15:15 11/10/24 21:35 100 MG Acetaminophen/ Hydrocodone Bitart 1 tab Q8HPRN PRN PO 10/28/24 20:45 11/10/24 17:16 1 TAB Megestrol Acetate 400 mg DAILY PO 10/30/24 10:00 11/10/24 11:59 400 MG Enteral Nutritional Formula 240 ml TIDWM PO 10/29/24 12:00 11/10/24 18:00 240 ML Dextrose 50 ml UD IV 10/30/24 00:00 Levothyroxine Sodium 200 mcg QAM@0600 PO 11/02/24 06:00 11/09/24 21:33 200 MCG Timolol Maleate 1 drop BID OP 11/05/24 22:00 11/10/24 21:35 1 DROP Laboratory Results Laboratory Tests 10/27/24 10:27 11/07/24 09:37 Urinalysis Test 10/24/24 10:06 Urine Color Light-yellow (Yellow) Urine Clarity Clear (Clear) Urine pH 7.5 (5.0-9.0) Urine Specific [place] 1.012 (1.001-1.035) Urine Protein Negative (Negative) Urine Ketones Negative (Negative) Urine Blood Negative /uL (Negative) Urine Nitrite Negative (Negative) Urine Bilirubin Negative (Negative) Urine Urobilinogen Normal mg/dL (Negative) Urine Leukocyte Esterase Negative /uL (Negative) Urine RBC 1 /hpf (0 - 4) Urine Microscopic WBC 1 /HPF (0-5) Urine Squamous Epithelial Cells Few /hpf (<5) Urine Bacteria None seen /hpf (None Seen) Urine Glucose Normal mg/dL (Normal) Microbiology Microbiology Date/Time Source Procedure Growth Status 10/26/24 19:25 Nose MRSA Screen - Final Complete 10/24/24 10:06 Voided Urine Urine Culture - Final Complete Labs and/or images reviewed: Labs reviewed by me Assessment/Plan Assessment/Plan -left lower lobe pneumonia -dementia -? Bradycardia -primary hypertension -asthma -dyslipidemia -thrombocytosis -severe hypothyroidism Plan: Continuing current management. Discussed with daughter. Per family, they agree with hospice. The daughter has signed the hospice paperwork to take the patient home however she is not ready to take her mom home until tomorrow We will let director social welfare know. Continuing with Synthroid, continuing with home medication. Continuing with bronchodilators, continuing with Coreg and amlodipine. Discharge order has been placed but now waiting for daughter to take the patient home tomorrow with hospice protocol We will change diet to soft mechanical food with feeding assistance This medical document was created using an electronic medical record system with [employer] computerized dictation system. Although this document has been carefully reviewed, there may still be some phonetic and typographical errors. These areas are purely typographical due to imperfections of the software programs, and do not reflect any compromise in the patient's medical care. Plan discussed with: Daughter My Orders Orders - YANIQUE MEADE MD Procedure Category Date Status Time Soft Diet DIET 11/10/24 Transmitted Dinner Discharge DISCHARGE 11/10/24 Transmitted 14:41 Date of Service: Nov 10, 2024 Billing Provider: YANIQUE MEADE MD Common Visit Codes: [id number] INP/OBS CARE(HIGH) YANIQUE MEADE MD Nov 10, 2024 23:00
[2024-11-11] VITALS (8 sets, daily range): BP systolic 100–129; BP diastolic 51–60; PULSE 60–74; RESP 16–19; TEMP 97.6–98.4; O2SAT 94–100
--- NOTE | 2024-11-11 11:41 | DVHPN2 ---
Subjective Patient denies any symptoms. Reviewed: Care Plan, H&P, Labs, Previous Orders Changes from previous H/P or p: No Changes General: Per HPI Gastrointestinal: Diarrhea Genitourinary: Dysuria Objective Vitals Vital Signs Date Time Temp Pulse Resp B/P (MAP) Pulse Ox O2 Delivery O2 Flow Rate FiO2 11/11/24 10:41 65 16 100 11/11/24 10:37 Room Air* 0 21 11/11/24 09:26 129/52 11/11/24 09:00 97.6 97.6 Intake/Output Intake and Output 11/11/24 07:00 Intake Total 2650 ml Balance 2650 ml Intake Oral 2650 ml # Voids 6 General Appearance: Alert, Cooperative, No acute distress HEENT: Atraumatic, PERRLA Lungs: Clear to auscultation, Normal air movement Cardiovascular: Normal S1, Normal S2 Abdomen: Normal bowel sounds, Soft, No tenderness, No hepatospenomegaly, No masses Genitourinary: No Apparent Abnormalities Musculoskeletal: Normal sensory function, Normal motor function Extremities: No clubbing, No cyanosis, No edema, Normal pulses, No tenderness/swelling Neuro: Cranial nerves 3-12 NL Skin: Dry, Intact Psych/Mental Status: Mental status NL, Mood NL Medications Current Medications Medications Dose Ordered Sig/Osvaldo Route Start Time Stop Time Status Last Admin Dose Admin Budesonide 0.5 mg BID NEB 10/24/24 22:00 11/11/24 10:36 0.5 MG Amlodipine Besylate 10 mg DAILY PO 10/25/24 10:00 11/11/24 09:25 10 MG Atorvastatin Calcium 40 mg HS PO 10/24/24 22:00 11/10/24 21:33 40 MG Latanoprost 1 drop QPM EACHEYE 10/24/24 18:00 11/10/24 17:16 1 DROP Quetiapine Fumarate 25 mg QHSP PRN PO 10/25/24 12:15 11/11/24 01:02 25 MG Carvedilol 3.125 mg BID PO 10/25/24 22:00 11/11/24 09:26 3.125 MG Haloperidol Lactate 2.5 mg Q8HP PRN IV 10/25/24 15:15 10/26/24 00:41 2.5 MG Acetaminophen 500 mg Q8HP PRN PO 10/25/24 15:30 11/10/24 21:33 500 MG Ondansetron HCl 4 mg Q6HP PRN IV 10/25/24 15:30 Albuterol 2.5 mg Q4HPRN PRN NEB 10/25/24 15:30 11/10/24 10:28 2.5 MG Ipratropium [place] 0.5 mg Q4HPRN PRN NEB 10/25/24 15:30 11/10/24 10:28 0.5 MG Hydralazine HCl 10 mg Q6HP PRN IV 10/26/24 00:30 10/31/24 11:56 10 MG Docusate Sodium 100 mg BID PO 10/27/24 15:15 11/11/24 09:25 100 MG Acetaminophen/ Hydrocodone Bitart 1 tab Q8HPRN PRN PO 10/28/24 20:45 11/11/24 01:02 1 TAB Megestrol Acetate 400 mg DAILY PO 10/30/24 10:00 11/11/24 09:24 400 MG Enteral Nutritional Formula 240 ml TIDWM PO 10/29/24 12:00 11/11/24 08:00 240 ML Dextrose 50 ml UD IV 10/30/24 00:00 Levothyroxine Sodium 200 mcg QAM@0600 PO 11/02/24 06:00 11/11/24 05:21 200 MCG Timolol Maleate 1 drop BID OP 11/05/24 22:00 11/11/24 09:26 1 DROP Laboratory Results Laboratory Tests 10/27/24 10:27 11/07/24 09:37 Urinalysis Test 10/24/24 10:06 Urine Color Light-yellow (Yellow) Urine Clarity Clear (Clear) Urine pH 7.5 (5.0-9.0) Urine Specific [place] 1.012 (1.001-1.035) Urine Protein Negative (Negative) Urine Ketones Negative (Negative) Urine Blood Negative /uL (Negative) Urine Nitrite Negative (Negative) Urine Bilirubin Negative (Negative) Urine Urobilinogen Normal mg/dL (Negative) Urine Leukocyte Esterase Negative /uL (Negative) Urine RBC 1 /hpf (0 - 4) Urine Microscopic WBC 1 /HPF (0-5) Urine Squamous Epithelial Cells Few /hpf (<5) Urine Bacteria None seen /hpf (None Seen) Urine Glucose Normal mg/dL (Normal) Microbiology Microbiology Date/Time Source Procedure Growth Status 10/26/24 19:25 Nose MRSA Screen - Final Complete 10/24/24 10:06 Voided Urine Urine Culture - Final Complete Labs and/or images reviewed: Labs reviewed by me, Image(s) reviewed by me Assessment/Plan Assessment/Plan Impression: -left lower lobe pneumonia -dementia -? Bradycardia -primary hypertension -asthma -dyslipidemia -thrombocytosis -severe hypothyroidism Plan: -events: Plans for discharge home with hospice today. Continue current treatment plan -Levothyroxine to 200 mcg daily -bronchodilators -antihypertensives: Continue Coreg and amlodipine -social service consultation for discharge planning Total time spent with patient discussing and formulating plan of care: 35 minutes. This medical document was created using an electronic medical record system with [employer] dictation system. Although this document has been carefully reviewed, there may still be some phonetic and typographical errors. These areas are purely typographical due to imperfections of the software programs, and do not reflect any compromise in the patient's medical care. Plan discussed with: Patient, Other (RN) Date of Service: Nov 11, 2024 Billing Provider: CAIO ZARATE NP Common Visit Codes: [id number] INP/OBS CARE(MOD) CAIO ZARATE NP Nov 11, 2024 11:41
== END 2024-11-11 14:06 | disposition hospice, home (50) | DRG 178 ==
LOC: ER 09:35 → OVERFLOW 16:44 → UNDOADMIN 16:44 → OVERFLOW 17:06 → TELE-CENTR 10-26 02:13 → CENTRAL 10-29 21:40 → EAST 11-02 02:53 → CENTRAL 11-08 18:42
PROVIDERS: ADMIT Nurse Practitioner Acute Care; ATTEND Nurse Practitioner Acute Care
DX: J15.69 Pneumonia due to other Gram-negative bacteria (principal); I16.1 Hypertensive emergency; J44.0 Chronic obstructive pulmonary disease with (acute) lower respiratory infection; N17.9 Acute kidney failure, unspecified; Z51.5 Encounter for palliative care; K62.89 Other specified diseases of anus and rectum; J15.9 Unspecified bacterial pneumonia; F03.90 Unspecified dementia, unspecified severity, without behavioral disturbance, psychotic disturbance, mood disturbance, and anxiety; E03.9 Hypothyroidism, unspecified; H40.89 Other specified glaucoma; E78.5 Hyperlipidemia, unspecified; D75.839 Thrombocytosis, unspecified; Z86.73 Personal history of transient ischemic attack (TIA), and cerebral infarction without residual deficits; Z82.49 Family history of ischemic heart disease and other diseases of the circulatory system; Z82.3 Family history of stroke; Z79.899 Other long term (current) drug therapy; Z79.82 Long term (current) use of aspirin; Z79.891 Long term (current) use of opiate analgesic; Z79.01 Long term (current) use of anticoagulants; J45.909 Unspecified asthma, uncomplicated
CPT/HCPCS: 36415; 70450; 71045; 80048; 80053; 81001; 82306; 82607; 82962; 83615; 83735; 84100; 84425; 84443; 84484; 85025; 87081; 87086; 92610; 93005; 94640; 96361; 96365; 96375; 97110; 97163; 97530; G0378; J1815; J1885; J1956; J3490